=== PATIENT | female | born 1960 | race Hispanic/Latino ===

== ENCOUNTER 2016-11-25 09:16 | Inpatient (IN) | payer MEDICARE ==
[2016-11-25 10:08] LABS: Basophils % (Auto) 0.5 % (0.0-1.8); Eosinophils % (Auto) 1.3 % (0.0-4.3); Hematocrit 30.2 % (30.3-42.9); Hemoglobin 9.9 gm/dl (10.1-14.3); Mean Corpuscular HGB Conc 33 % (30-34); Mean Corpuscular Volume 72 fl (79-97); Platelet Count 467 K/mm3 (140-440); Red Blood Count 4.18 M/mm3 (3.65-5.03); Red Cell Distribution Width 16.6 % (13.2-15.2); White Blood Count 9.6 K/mm3 (4.5-11.0)
[2016-11-25 10:16] LABS: Mean Corpuscular Hemoglobin 24 pg (28-32)
[2016-11-25 10:36] LABS: Alanine Aminotransferase 21 units/L (7-56); Albumin 2.9 g/dL (3.9-5); Albumin/Globulin Ratio 0.9 %; Alkaline Phosphatase 92 units/L (35-129); Anion Gap 16 mmol/L; BUN/Creatinine Ratio 16.66; Bilirubin,Total 0.3 mg/dL (0.1-1.2); Blood Urea Nitrogen 10 mg/dL (7-17); Carbon Dioxide 31 mmol/L (22-30); Chloride 80.1 mmol/L (98-107); Glucose 104 mg/dL (65-100); Lipase 17 units/L (13-60); Sodium 125 mmol/L (137-145); Total Protein 6.3 g/dL (6.3-8.2)
[2016-11-25 10:41] LABS: Bilirubin,Urine NEG (Negative); Blood,Urine NEG (Negative); Ketones,Urine NEG (Negative); Leukocyte Esterase,Urine NEG (Negative); Nitrite,Urine NEG (Negative); Protein,Urine <15 mg/dL mg/dL (Negative); RBC,Urine < 1.0 /HPF (0.0-6.0); Urobilinogen,Urine < 2.0 mg/dL (<2.0); WBC,Urine < 1.0 /HPF (0.0-6.0)
[2016-11-25 10:42] LABS: Potassium 2.3 mmol/L (3.6-5.0)
[2016-11-25] MEDS ORDERED: K-DUR PO ONE (10:46)
[2016-11-25 11:09] LABS: Iron 13 ug/dL (37-170); Total Iron Binding Capacity 213 mcg/dL (250-450)
[2016-11-25] MEDS ORDERED: NACL 0.9% 1000 ML 1,000 ML IV ONE (11:12)
--- NOTE | 2016-11-25 11:50 | XRay Report ---
AP CHEST History: Difficulty in breathing Findings: There are moderate chronic interstitial changes in both lungs. No consolidation, pleural effusion or pneumothorax. Normal heart size. The thoracic is intact. Impression: Chronic interstitial changes. No acute cardiopulmonary process appreciated.
--- NOTE | 2016-11-25 11:58 | Cat Scan Report ---
CT HEAD WITHOUT CONTRAST: HISTORY: Head trauma, syncope. TECHNIQUE: Sequential CT images without contrast. FINDINGS: Images obtained show bilateral prominence of the sulci and ventricles. There are no abnormal intra- or extra-axial blood or fluid collections. There are no focal masses or evidence of mass effect. The jiang white matter differentiation appears within normal limits. Regions of periventricular decreased attenuation are consistent with microangiopathic ischemic disease. The posterior fossa structures including the fourth ventricle, cerebellum, and brainstem appear normal. IMPRESSION: Evidence of atrophy and microangiopathic ischemic disease. No acute intracranial process noted.
[2016-11-25] MEDS ORDERED: ZOFRAN IV PRN (12:04)
[2016-11-25] MEDS ORDERED: MILK OF MAGNESIA PO PRN (12:04)
[2016-11-25] MEDS ORDERED: DULCOLAX PR PRN (12:04)
--- NOTE | 2016-11-25 12:09 | Admit Criteria Form ---
Admission Criteria Documentation: HYPONATREMIA; HYPERNATREMIA; HYPOKALEMIA; HYPERKALEMIA; HYPOCALCEMIA; HYPERCALCEMIA Clinical Indications for Inpatient Care (Place 'X' for any and all applicable criteria): Ongoing inpatient care may be indicated for ANY ONE of the following [G](1)(2)(3 )(5): [X ]I. Hyponatremia with ANY ONE of the following: [ X]a) Sodium less than 130 mEq/L (mmol/L) (new) (6)(22) [ ]b) Sodium less than 135 mEq/L (mmol/L) with ANY ONE of the following: [ ]i) Severe medical etiology requiring inpatient management (eg, heart failure, hypovolemia) [ ]ii) Altered mental status [ ]iii) Seizures [ ]II. Hypernatremia with ANY ONE of the following: [ ]a) Sodium greater than 155 mEq/L (mmol/L) [ ]b) Sodium greater than 150 mEq/L (mmol/L) with ANY ONE of the following: [ ] i) Altered mental status [ ]ii) Seizures [ ]iii) Severe medical etiology (eg, hypovolemia, diabetes insipidus) [ ]iv) Severe weakness [ ]v) Severe medical etiology (eg, hemolysis, infection, drug overdose) [X ]III. Hypokalemia with ANY ONE of the following: [ X]a) Potassium less than 2.5 mEq/L (mmol/L) despite outpatient and emergency treatment [ ]b) Potassium less than 3.0 mEq/L (mmol/L) with ANY ONE of the following: [ ]i) Weakness [ ]ii) Cardiac abnormality (eg, arrhythmia, conduction disturbance) [ ]iii) Cardiac ischemia [ ]iv) Ileus [ ]v) Ongoing medical cause requiring inpatient management. ( e.g., acute renal wasting, SIADH) [ ]vi) Other severe symptoms [ ] IV. Hyperkalemia with ANY ONE of the following: [ ]a) Potassium greater than 6.5 mEq/L (mmol/L) [ ]b) Potassium greater than 5 mEq/L (mmol/L) with ANY ONE of the following: [ ]i) Severe ECG findings [H] [ ]ii) Acute worsening of renal failure (creatinine greater than 2.5 mg/dL (221 micromoles/L) or significant elevation for age and size) [ ] V. Hypocalcemia with ANY ONE of the following: [ ]a) Calcium less than 7 mg/dL (1.75 mmol/L) despite outpatient and emergency treatment(19) [ ]b) Calcium less than 8 mg/dL (2 mmol/L) with significant symptoms or findings; examples include: [ ]i) Cardiac abnormality (eg, arrhythmia or conduction disturbance) [ ]ii) Altered mental status [ ]iii) Seizures [ ]iv) Breathing difficulty [ ]v) Muscle spasms [ ]. Hypercalcemia with ANY ONE of the following: [ ]a) Calcium greater than 14 mg/dL (3.5 mmol/L) [ ]b) Calcium greater than 12 mg/dL (3 mmol/L) with ANY ONE of the following: [ ]i) Significant dehydration or hypovolemia as indicated by ANY ONE of the following(2): [ ]1. Clinically significant dehydration as indicated by ANY ONE of the following: [ ]A. Acute loss of weight from baseline (5% of body weight in adults, 9% in pediatric patients) [ ]B. Hemodynamic instability [ ]C. Acute renal failure [ ]D. Serum sodium greater than 150 mEq/L (mmol/L) [ ]2) Dehydration that is persistent indicated by ALL of the following: [ ]A. Oral rehydration therapy not tolerated or insufficient to adequately correct dehydration [ ]B. Appropriate intravenous treatment (eg, fluids ) does not readily correct dehydration ie, after 12 to 24 hours of treatment) [ ]ii) Significant symptoms or findings; examples include: [ ]1) Altered mental status [ ]2) Cardiac abnormality (eg, arrhythmia, conduction disturbance) [ ]3) Cardiac abnormality (eg, arrhythmia, conduction disturbance) The original [facility] content created by [employer] has been revised. The portions of the content which have been revised are identified through the use of italic text or in bold, and [facility] has neither reviewed nor approved the modified material. All other unmodified content is copyright [facility] Please see references footnoted in the original [facility] edition 2016 Admission Criteria Met: Yes
--- NOTE | 2016-11-25 12:49 | Emergency Department Report ---
ED General Adult HPI - General Chief complaint: Dizziness Stated complaint: LOW BP Time Seen by Provider: 11/25/16 10:33 Source: patient, EMS Mode of arrival: Stretcher Limitations: No Limitations - History of Present Illness Initial comments: The patient presents to the emergency department with similar complaints compared with her previous admission in September. She complains of dizziness and generalized weakness but not vertigo. Yesterday she states that she stood up but fell backwards hitting the left occiput of her head on a coffee table. She distinctly remembers the incident and denies any loss of consciousness. She denies any neck pain whatsoever. She has not been nauseated or complaining of headache. She states that she does have a bump on the back of her head. She also denies nausea vomiting or diarrhea over the past several days. She states that she has never taken an overdose of medication. She specifically denies taking a diuretic. Apparently she was here in September found to be hyponatremic. I don't think the cause was ever specifically determined. -: days(s) Location: head Radiation: non-radiation Quality: dull (mild soreness) Consistency: intermittent Improves with: none Associated Symptoms: denies other symptoms Treatments Prior to Arrival: none - Related Data Home Medications Medication Instructions Recorded Confirmed Last Taken Ascorbic Acid [Vitamin C] 500 mg PO QDAY 11/24/15 10/14/16 11/23/15 09:00 Dicyclomine [Bentyl] 10 mg PO QID 11/24/15 10/14/16 11/23/15 22:00 Iron 65 mg PO BID 11/24/15 10/14/16 11/23/15 22:00 Previous Rx's Medication Instructions Recorded Last Taken Type Potassium Chloride 20 meq PO QDAY #30 packet 12/09/14 Unknown Rx Diltiazem [Cardizem] 60 mg PO Q6HR #120 tablet 03/04/15 Unknown Rx Metoclopramide [Reglan TAB] 10 mg PO Q6H PRN #30 tablet 03/04/15 Unknown Rx Sucralfate [Carafate] 1 gm PO ACHS #120 tablet 03/04/15 Unknown Rx Ondansetron [Zofran ODT TAB] 4 mg PO Q8HR PRN #20 tab.rapdis 11/24/15 Unknown Rx Pantoprazole [Protonix TAB] 40 mg PO BID 14 Days 09/16/16 Unknown Rx Sucralfate [Carafate] 1 gm PO Q6HR 14 Days 09/16/16 Unknown Rx Acetaminophen/Codeine 1 tab PO Q6H PRN #10 tab 09/17/16 Unknown Rx [Acetaminophen-Codeine #3 TAB] Mirtazapine [Remeron] 15 mg PO QHS #30 tablet 10/17/16 Unknown Rx Ziprasidone HCl [Geodon] 80 mg PO QHS #30 10/17/16 11/23/15 22:00 Rx Allergies Allergy/AdvReac Type Severity Reaction Status Date / Time aspirin AdvReac Bleeding Verified 10/14/16 03:11 ibuprofen AdvReac Bleeding Verified 10/14/16 03:11 ED Review of Systems ROS: Stated complaint: LOW BP Other details as noted in HPI Constitutional: weakness. denies: chills, fever Eyes: denies: eye pain, eye discharge, vision change ENT: denies: ear pain, throat pain Respiratory: denies: cough, shortness of breath, wheezing Cardiovascular: denies: chest pain, palpitations Endocrine: no symptoms reported Gastrointestinal: denies: abdominal pain, nausea, diarrhea Genitourinary: denies: urgency, dysuria, discharge Musculoskeletal: denies: back pain, joint swelling, arthralgia Skin: denies: rash, lesions Neurological: denies: headache, weakness, paresthesias Psychiatric: denies: anxiety, depression Hematological/Lymphatic: denies: easy bleeding, easy bruising ED Past Medical Hx - Past Medical History Hx Hypertension: Yes Hx Heart Attack/AMI: No Hx Congestive Heart Failure: No Hx Diabetes: No Hx Deep Vein Thrombosis: No Hx Pulmonary Embolism: No Hx Liver Disease: No Hx Renal Disease: No Hx Sickle Cell Disease: No Hx Seizures: No Hx Kidney Stones: No Hx Psychiatric Treatment: Yes (schizoaffective) Hx Asthma: No Hx COPD: Yes Hx Tuberculosis: No Hx HIV: No Additional medical history: hiatal hernia. holes in esophagus. gi bleed-- bleeding ulcers. schizoaffective disorder - Surgical History Hx Coronary Stent: No Hx Open Heart Surgery: No Hx Pacemaker: No Hx Internal Defibrillator: No Hx Cholecystectomy: No Hx Appendectomy: Yes Hx Breast Surgery: No Additional Surgical History: esophagus repair. left foot surgery. tonsilectomy. x 2. hysterectomy. 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 - Social History Smoking Status: Former Smoker Substance Use Type: None - Medications Home Medications: Home Medications Medication Instructions Recorded Confirmed Last Taken Type Potassium Chloride 20 meq PO QDAY #30 packet 12/09/14 11/24/15 Unknown Rx Diltiazem [Cardizem] 60 mg PO Q6HR #120 tablet 03/04/15 11/24/15 Unknown Rx Metoclopramide [Reglan TAB] 10 mg PO Q6H PRN #30 tablet 03/04/15 11/24/15 Unknown Rx Sucralfate [Carafate] 1 gm PO ACHS #120 tablet 03/04/15 11/24/15 Unknown Rx Ascorbic Acid [Vitamin C] 500 mg PO QDAY 11/24/15 10/14/16 11/23/15 09:00 History Dicyclomine [Bentyl] 10 mg PO QID 11/24/15 10/14/16 11/23/15 22:00 History Iron 65 mg PO BID 11/24/15 10/14/16 11/23/15 22:00 History Ondansetron [Zofran ODT TAB] 4 mg PO Q8HR PRN #20 tab.rapdis 11/24/15 10/14/16 Unknown Rx Pantoprazole [Protonix TAB] 40 mg PO BID 14 Days 09/16/16 10/14/16 Unknown Rx Sucralfate [Carafate] 1 gm PO Q6HR 14 Days 09/16/16 10/14/16 Unknown Rx Acetaminophen/Codeine 1 tab PO Q6H PRN #10 tab 09/17/16 10/14/16 Unknown Rx [Acetaminophen-Codeine #3 TAB] Mirtazapine [Remeron] 15 mg PO QHS #30 tablet 10/17/16 Unknown Rx Ziprasidone HCl [Geodon] 80 mg PO QHS #30 10/17/16 10/14/16 11/23/15 22:00 Rx ED Physical Exam - General Limitations: No Limitations General appearance: alert, in no apparent distress - Head Head exam: Present: normocephalic, other (small cephalhematoma left occiput) - Eye Eye exam: Present: normal appearance, PERRL, EOMI, scleral icterus - ENT ENT exam: Present: normal exam, mucous membranes moist - Neck Neck exam: Present: normal inspection. Absent: tenderness, meningismus - Respiratory Respiratory exam: Present: normal lung sounds bilaterally. Absent: respiratory distress - Cardiovascular Cardiovascular Exam: Present: regular rate, normal rhythm. Absent: systolic murmur, diastolic murmur, rubs, gallop - GI/Abdominal GI/Abdominal exam: Present: soft, normal bowel sounds. Absent: distended, tenderness, guarding, rebound, rigid - Extremities Exam Extremities exam: Present: normal inspection. Absent: tenderness, calf tenderness - Back Exam Back exam: Present: normal inspection. Absent: CVA tenderness (R), CVA tenderness (L), muscle spasm, paraspinal tenderness, vertebral tenderness - Neurological Exam Neurological exam: Present: alert, oriented X3, CN II-XII intact. Absent: motor sensory deficit - Psychiatric Psychiatric exam: Present: normal affect, normal mood - Skin Skin exam: Present: warm, dry, intact, normal color. Absent: rash ED Course Vital Signs 11/25/16 11/25/16 09:43 09:47 Temperature 97.5 F L Pulse Rate 64 Respiratory 15 Rate Blood Pressure 100/59 O2 Sat by Pulse 97 100 Oximetry ED Medical Decision Making - Lab Data Result diagrams: 11/25/16 09:57 11/25/16 12:37 Laboratory Results - last 24 hr 11/25/16 11/25/16 11/25/16 09:57 09:57 09:57 WBC 9.6 RBC 4.18 Hgb 9.9 L Hct 30.2 L MCV 72 L MCH 24 L MCHC 33 RDW 16.6 H Plt Count 467 H Lymph % (Auto) 9.5 L Swift % (Auto) 8.1 H Eos % (Auto) 1.3 Baso % (Auto) 0.5 Lymph # 0.9 L Swift # 0.8 Eos # 0.1 Baso # 0.1 Seg Neutrophils % 80.6 H Seg Neutrophils # 7.8 H Sodium 125 L Potassium 2.3 L* Chloride 80.1 L Carbon Dioxide 31 H Anion Gap 16 BUN 10 Creatinine 0.6 L Estimated GFR > 60 BUN/Creatinine Ratio 16.66 Glucose 104 H Osmolality Calcium 8.0 L Magnesium Iron 13 L TIBC 213 L Total Bilirubin 0.3 AST 60 H ALT 21 Alkaline Phosphatase 92 Total Protein 6.3 Albumin 2.9 L Albumin/Globulin Ratio 0.9 Lipase 17 TSH Free T4 Urine Color Urine Turbidity Urine pH Ur Specific Lena Urine Protein Urine Glucose (UA) Urine Ketones Urine Blood Urine Nitrite Urine Bilirubin Urine Urobilinogen Ur Leukocyte Esterase Urine WBC (Auto) Urine RBC (Auto) Acetaminophen 11/25/16 11/25/16 11/25/16 09:57 10:27 11:09 WBC RBC Hgb Hct MCV MCH MCHC RDW Plt Count Lymph % (Auto) Swift % (Auto) Eos % (Auto) Baso % (Auto) Lymph # Swift # Eos # Baso # Seg Neutrophils % Seg Neutrophils # Sodium Potassium Chloride Carbon Dioxide Anion Gap BUN Creatinine Estimated GFR BUN/Creatinine Ratio Glucose Osmolality Calcium Magnesium 1.8 Iron TIBC Total Bilirubin AST ALT Alkaline Phosphatase Total Protein Albumin Albumin/Globulin Ratio Lipase TSH Free T4 Urine Color Colorless Urine Turbidity Clear Urine pH 7.0 Ur Specific Lena 1.001 L Urine Protein <15 mg/dl Urine Glucose (UA) Neg Urine Ketones Neg Urine Blood Neg Urine Nitrite Neg Urine Bilirubin Neg Urine Urobilinogen < 2.0 Ur Leukocyte Esterase Neg Urine WBC (Auto) < 1.0 Urine RBC (Auto) < 1.0 Acetaminophen < 15.0 11/25/16 11/25/16 11/25/16 11:09 12:37 12:37 WBC RBC Hgb Hct MCV MCH MCHC RDW Plt Count Lymph % (Auto) Swift % (Auto) Eos % (Auto) Baso % (Auto) Lymph # Swift # Eos # Baso # Seg Neutrophils % Seg Neutrophils # Sodium 125 L Potassium Chloride Carbon Dioxide Anion Gap BUN Creatinine Estimated GFR BUN/Creatinine Ratio Glucose Osmolality 263 Calcium Magnesium Iron TIBC Total Bilirubin AST ALT Alkaline Phosphatase Total Protein Albumin Albumin/Globulin Ratio Lipase TSH 0.610 Free T4 1.53 H Urine Color Urine Turbidity Urine pH Ur Specific Lena Urine Protein Urine Glucose (UA) Urine Ketones Urine Blood Urine Nitrite Urine Bilirubin Urine Urobilinogen Ur Leukocyte Esterase Urine WBC (Auto) Urine RBC (Auto) Acetaminophen - EKG Data -: EKG Interpreted by Ga EKG shows normal: sinus rhythm, axis, intervals - EKG Data Interpretation: other (the EKG is characteristic of the changes of hypokalemia. There is QT prolongation. There are U waves. There are flattened P waves.) Critical care attestation.: If time is entered above; I have spent that time in minutes in the direct care of this critically ill patient, excluding procedure time. ED Disposition Clinical Impression: Hypokalemia with normal acid-base balance, Hyponatremia, Abnormal transaminases , Elevated serum free T4 level, Hypochromic microcytic anemia, Psychiatric disorder Iron deficiency anemia Qualifiers: Iron deficiency anemia type: unspecified iron deficiency Qualified Code(s): D50.9 - Iron deficiency anemia, unspecified Disposition: OP ADMITTED IP TO THIS HOSP Is pt being admited?: Yes Does the pt Need Aspirin: No Condition: Stable Time of Disposition: 14:04
--- NOTE | 2016-11-25 12:59 | History and Physical Report ---
History of Present Illness Date of examination: 11/25/16 Date of admission: 11/25/16 12:06 Chief complaint: Abdominal pain History of present illness: Patient is a 56-year-old female with past medical history of schizoaffective disorder, iron deficiency anemia, hypertension, peptic ulcer disease who presents to the ER with complaints of abdominal pain and generalized weakness. She also reports a syncopal episode which was unwitnessed yesterday with notation that she hit the back of her head. Abdominal patient rates 5. Intensive tinnitus, stones. She started 3 days ago but when asked in depth that she has had multiple admissions for the same she states that it comes and goes and has never really gone away. She has had multiple stents in the past was negative. She denies any radiation. She states that she does have blood in her stool is that this is chronic. She denies any melena or kobe bleeding. In the ER today she reports dizziness and generalized weakness but no vertigo. She stated that she stood up and fell backwards hitting her head yesterday. But again although she causes syncope she says she did not lose any consciousness. She denies any neck pain denies any nausea or vomiting or diarrhea. She denies any use of diuretics. She denies any fever. The ER she was noted to have a significantly depressed sodium level of potassium. ROS Constitutional: No fever, fatigue or weight loss. Skin: No rash. Eyes: No recent vision problems or eye pain. ENT: No congestion, ear pain, or sore throat. Endocrine: No thyroid problems. Cardiovascular: No chest pain. Respiratory: No cough, shortness of breath, congestion, or wheezing. Gastrointestinal: abdominal pain, but no nausea, vomiting, or diarrhea. Genitourinary: No dysuria. Musculoskeletal: No joint swelling. Neurologic: No seizures. Hematologic: No unusual bruising or bleeding. Psychiatric: No psychiatric problems, hallucinations or depression. All other systems reviewed and otherwise negative. 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, esophageal repair, left foot surgery, tonsillectomy,) Social history: no significant social history, full code Family history: CAD, diabetes, hypertension Medications and Allergies Allergies Allergy/AdvReac Type Severity Reaction Status Date / Time aspirin AdvReac Bleeding Verified 10/14/16 03:11 ibuprofen AdvReac Bleeding Verified 10/14/16 03:11 Home Medications Medication Instructions Recorded Confirmed Last Taken Type Potassium Chloride 20 meq PO QDAY #30 packet 12/09/14 11/24/15 Unknown Rx Diltiazem [Cardizem] 60 mg PO Q6HR #120 tablet 03/04/15 11/24/15 Unknown Rx Metoclopramide [Reglan TAB] 10 mg PO Q6H PRN #30 tablet 03/04/15 11/24/15 Unknown Rx Sucralfate [Carafate] 1 gm PO ACHS #120 tablet 03/04/15 11/24/15 Unknown Rx Ascorbic Acid [Vitamin C] 500 mg PO QDAY 11/24/15 10/14/16 11/23/15 09:00 History Dicyclomine [Bentyl] 10 mg PO QID 11/24/15 10/14/16 11/23/15 22:00 History Iron 65 mg PO BID 11/24/15 10/14/16 11/23/15 22:00 History Ondansetron [Zofran ODT TAB] 4 mg PO Q8HR PRN #20 tab.rapdis 11/24/15 10/14/16 Unknown Rx Pantoprazole [Protonix TAB] 40 mg PO BID 14 Days 09/16/16 10/14/16 Unknown Rx Sucralfate [Carafate] 1 gm PO Q6HR 14 Days 09/16/16 10/14/16 Unknown Rx Acetaminophen/Codeine 1 tab PO Q6H PRN #10 tab 09/17/16 10/14/16 Unknown Rx [Acetaminophen-Codeine #3 TAB] Mirtazapine [Remeron] 15 mg PO QHS #30 tablet 10/17/16 Unknown Rx Ziprasidone HCl [Geodon] 80 mg PO QHS #30 10/17/16 10/14/16 11/23/15 22:00 Rx Active Meds: Active Medications Acetaminophen (Tylenol) 650 mg PO Q4H PRN PRN Reason: Pain MILD(1-3)/Fever >100.5/HWANG Bisacodyl (Dulcolax) 10 mg DC QDAY PRN PRN Reason: Constipation unrelieved by MOM Potassium Chloride (Kcl 10meq/100ml) 100 mls @ 100 mls/hr IV Q1H ANTONELLA Stop: 11/25/16 14:59 Sodium Chloride (Nacl 0.9% 1000 Ml) 1,000 mls @ 250 mls/hr IV ONCE ONE Stop: 11/25/16 15:11 Sodium Chloride (Nacl 0.9% 1000 Ml) 1,000 mls @ 125 mls/hr IV DIRECT ANTONELLA Magnesium Hydroxide (Milk Of Magnesia) 30 ml PO Q4H PRN PRN Reason: Constipation Ondansetron HCl (Zofran) 4 mg IV Q8H PRN PRN Reason: N/V unrelieved by Reglan Exam - Physical Exam Narrative exam: VITAL SIGNS: Reviewed. GENERAL: The patient appeared cachectic. Vital signs as documented. HEAD: No signs of head trauma. EYES: Pupils are equal. Extraocular motions intact. EARS: Hearing grossly intact. MOUTH: Oropharynx is normal. NECK: No adenopathy, no JVD. CHEST: Chest with clear breath sounds bilaterally. No wheezes, rales, or rhonchi. CARDIAC: Regular rate and rhythm. S1 and S2, without murmurs, gallops, or rubs. VASCULAR: No Edema. Peripheral pulses normal and equal in all extremities. ABDOMEN: Soft, tenderness left lower quadrant. No sign of distention. No rebound or guarding, and no masses palpated. Bowel Sounds normal. MUSCULOSKELETAL: Good range of motion of all major joints. Extremities without clubbing, cyanosis or edema. NEUROLOGIC EXAM: Alert and oriented x 3. No focal sensory or strength deficits. Speech normal. Follows commands. PSYCHIATRIC: Mood normal. SKIN: No rash or lesions. - Constitutional Vitals: Temp Pulse Resp BP Pulse Ox 97.5 F L 64 100/59 97 11/25/16 09:43 11/25/16 09:43 11/25/16 09:43 11/25/16 09:43 Results - Labs CBC & Chem 7: 11/25/16 09:57 11/25/16 09:57 Labs: Laboratory Last Values WBC 9.6 K/mm3 (4.5-11.0) 11/25/16 09:57 RBC 4.18 M/mm3 (3.65-5.03) 11/25/16 09:57 Hgb 9.9 gm/dl (10.1-14.3) L 11/25/16 09:57 Hct 30.2 % (30.3-42.9) L 11/25/16 09:57 MCV 72 fl (79-97) L 11/25/16 09:57 MCH 24 pg (28-32) L 11/25/16 09:57 MCHC 33 % (30-34) 11/25/16 09:57 RDW 16.6 % (13.2-15.2) H 11/25/16 09:57 Plt Count 467 K/mm3 (140-440) H 11/25/16 09:57 Lymph % (Auto) 9.5 % (13.4-35.0) L 11/25/16 09:57 [place] % (Auto) 8.1 % (0.0-7.3) H 11/25/16 09:57 Eos % (Auto) 1.3 % (0.0-4.3) 11/25/16 09:57 Baso % (Auto) 0.5 % (0.0-1.8) 11/25/16 09:57 Lymph # 0.9 K/mm3 (1.2-5.4) L 11/25/16 09:57 [place] # 0.8 K/mm3 (0.0-0.8) 11/25/16 09:57 Eos # 0.1 K/mm3 (0.0-0.4) 11/25/16 09:57 Baso # 0.1 K/mm3 (0.0-0.1) 11/25/16 09:57 Seg Neutrophils % 80.6 % (40.0-70.0) H 11/25/16 09:57 Seg Neutrophils # 7.8 K/mm3 (1.8-7.7) H 11/25/16 09:57 Sodium 125 mmol/L (137-145) L 11/25/16 09:57 Potassium 2.3 mmol/L (3.6-5.0) L* 11/25/16 09:57 Chloride 80.1 mmol/L (98-107) L 11/25/16 09:57 Carbon Dioxide 31 mmol/L (22-30) H 11/25/16 09:57 Anion Gap 16 mmol/L 11/25/16 09:57 BUN 10 mg/dL (7-17) 11/25/16 09:57 Creatinine 0.6 mg/dL (0.7-1.2) L 11/25/16 09:57 Estimated GFR > 60 ml/min 11/25/16 09:57 BUN/Creatinine Ratio 16.66 % 11/25/16 09:57 Glucose 104 mg/dL (65-100) H 11/25/16 09:57 Calcium 8.0 mg/dL (8.4-10.2) L 11/25/16 09:57 Magnesium 1.8 mg/dL (1.7-2.3) 11/25/16 09:57 Iron 13 ug/dL (37-170) L 11/25/16 09:57 TIBC 213 mcg/dL (250-450) L 11/25/16 09:57 Total Bilirubin 0.3 mg/dL (0.1-1.2) 11/25/16 09:57 AST 60 units/L (5-40) H 11/25/16 09:57 ALT 21 units/L (7-56) 11/25/16 09:57 Alkaline Phosphatase 92 units/L (35-129) 11/25/16 09:57 Total Protein 6.3 g/dL (6.3-8.2) 11/25/16 09:57 Albumin 2.9 g/dL (3.9-5) L 11/25/16 09:57 Albumin/Globulin Ratio 0.9 % 11/25/16 09:57 Lipase 17 units/L (13-60) 11/25/16 09:57 TSH 0.610 mlU/mL (0.270-4.200) 11/25/16 11:09 Free T4 1.53 ng/dL (0.76-1.46) H 11/25/16 11:09 Urine Color Colorless (Yellow) 11/25/16 10:27 Urine Turbidity Clear (Clear) 11/25/16 10:27 Urine pH 7.0 (5.0-7.0) 11/25/16 10:27 Ur Specific [place] 1.001 (1.003-1.030) L 11/25/16 10:27 Urine Protein <15 mg/dl mg/dL (Negative) 11/25/16 10:27 Urine Glucose (UA) Neg mg/dL (Negative) 11/25/16 10:27 Urine Ketones Neg mg/dL (Negative) 11/25/16 10:27 Urine Blood Neg (Negative) 11/25/16 10:27 Urine Nitrite Neg (Negative) 11/25/16 10:27 Urine Bilirubin Neg (Negative) 11/25/16 10:27 Urine Urobilinogen < 2.0 mg/dL (<2.0) 11/25/16 10:27 Ur Leukocyte Esterase Neg (Negative) 11/25/16 10:27 Urine WBC (Auto) < 1.0 /HPF (0.0-6.0) 11/25/16 10:27 Urine RBC (Auto) < 1.0 /HPF (0.0-6.0) 11/25/16 10:27 Acetaminophen < 15.0 ug/mL (10.0-30.0) 11/25/16 11:09 - Imaging and Cardiology EKG: image reviewed (dermal sinus rhythm on my review) Chest x-ray: image reviewed (no acute pathology noted on my review) CT scan - abdomen: pending (ordered) CT Scan - head: pending (ordered) CT scan - pelvis: pending (ordered) Assessment and Plan Assessment and plan: Patient is a 56-year-old female with past medical history of schizoaffective disorder, iron deficiency anemia, hypertension, peptic ulcer disease who presents to the ER with complaints of abdominal pain and generalized weakness. She also reports a syncopal episode which was unwitnessed yesterday with notation that she hit the back of her head. Abdominal patient rates 5. Intensive tinnitus, stones. She started 3 days ago but when asked in depth that she has had multiple admissions for the same she states that it comes and goes and has never really gone away. She has had multiple stents in the past was negative. She denies any radiation. She states that she does have blood in her stool is that this is chronic. She denies any melena or kobe bleeding. In the ER today she reports dizziness and generalized weakness but no vertigo. She stated that she stood up and fell backwards hitting her head yesterday. But again although she causes syncope she says she did not lose any consciousness. She denies any neck pain denies any nausea or vomiting or diarrhea. She denies any use of diuretics. She denies any fever. The ER she was noted to have a significantly depressed sodium level of potassium. 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 * monitor sodium level, urine electrolytes, urine sodium, urine osmolalytes * Hypokalemia * replaced * Schizoaffective disorder * restart home meds * Benign hypertension * restart home meds * Severe protein calorie malnutrition * Nutrition consult * Iron deficiency anemia * Monitor. * Mildly elevated AST * DVT/GI prophylaxis Advance Directives: Yes Plan of care discussed with patient/family: Yes
[2016-11-25] MEDS ORDERED: NACL ONE ×2 (13:07→16:15)
[2016-11-25] MEDS: KCL 10MEQ/100ML 100 ML IV SCH ×2 (14:04→17:20)
[2016-11-25] MEDS: TYLENOL PO PRN ×2 (16:30→23:30)
--- NOTE | 2016-11-25 17:46 | Cat Scan Report ---
FINAL REPORT PROCEDURE: CT abdomen and pelvis without and with contrast. TECHNIQUE: Computerized axial tomography of the abdomen and pelvis was performed without contrast followed by computerized axial tomography of the abdomen and pelvis after the IV injection of iodinated nonionic contrast. HISTORY: Abdominal pain. COMPARISON: CT abdomen and pelvis 11/24/2015. FINDINGS: There are coarsened interstitial markings in the left lower lobe and in the periphery of the right lower lobe. This may represent parenchymal fibrosis. There are no pleural effusions. The heart size is normal. The liver, spleen and pancreas appear normal. The gallbladder is present. There is a low-attenuation ovoid mass in the right adrenal gland. This measures 1.9 centimeters x 1.6 centimeters in cross-section. There is also a low-density mass in the left adrenal gland. This measures approximately 1.6 centimeters x 1.1 centimeters in cross-section. These may both represent adrenal adenomas. There is a small cyst in the right kidney and a large cyst in the left kidney. The left renal cyst measures 4.2 centimeters x 3.7 centimeters in cross-section. The abdominal aorta has a normal caliber. There is no retroperitoneal adenopathy. There is a moderately large hiatal hernia. The appendix is not identified. There are no signs of an inflammatory process near the cecum. The bladder is unremarkable. The uterus has been removed. The regional skeleton appears intact. IMPRESSION: Previous hysterectomy. Bilateral renal cysts. Possible fibrosis in both lower lobes. Bilateral adrenal gland masses which probably represent adenomas. Moderately large hiatal hernia.
[2016-11-26] MEDS ORDERED: ALUM-MAG HYDROX-SIMETH 200-200-20MG/5ML PO ONE (03:42)
[2016-11-26 05:39] LABS: Basophils % (Auto) 0.8 % (0.0-1.8); Eosinophils % (Auto) 1.1 % (0.0-4.3); Hematocrit 27.9 % (30.3-42.9); Hemoglobin 9.2 gm/dl (10.1-14.3); Mean Corpuscular HGB Conc 33 % (30-34); Mean Corpuscular Hemoglobin 24 pg (28-32); Mean Corpuscular Volume 73 fl (79-97); Platelet Count 513 K/mm3 (140-440); Red Blood Count 3.82 M/mm3 (3.65-5.03); Red Cell Distribution Width 16.7 % (13.2-15.2); White Blood Count 7.2 K/mm3 (4.5-11.0)
[2016-11-26 05:53] LABS: Alanine Aminotransferase 18 units/L (7-56); Albumin 2.6 g/dL (3.9-5); Albumin/Globulin Ratio 0.8 %; Alkaline Phosphatase 83 units/L (35-129); Bilirubin,Total < 0.2 mg/dL (0.1-1.2); Blood Urea Nitrogen 6 mg/dL (7-17); Calcium 8.1 mg/dL (8.4-10.2); Carbon Dioxide 31 mmol/L (22-30); Chloride 97.4 mmol/L (98-107); Glucose 87 mg/dL (65-100); Sodium 140 mmol/L (137-145); Total Protein 5.7 g/dL (6.3-8.2)
[2016-11-26 06:00] LABS: Anion Gap 14 mmol/L; Potassium 2.1 mmol/L (3.6-5.0)
[2016-11-26 06:16] LABS: Sodium, Urine 21 mEq/L
[2016-11-26] MEDS: KCL 10MEQ/100ML 100 ML IV SCH ×4 (09:07→13:36)
[2016-11-26] MEDS: K-DUR PO SCH ×2 (09:17→12:30)
[2016-11-26] MEDS: PERCOCET 5/325 PO PRN ×3 (09:17→21:39)
[2016-11-26] MEDS: NACL 0.9% 1000 ML 1,000 ML IV SCH ×3 (11:36→21:40)
--- NOTE | 2016-11-26 14:32 | Echocardiography Report ---
Transthoracic Echocardiogram Indication: SYNCOPE BP: 100/59 HR: 65 Findings Procedure Info: The study quality is good. Left Ventricle: The left ventricular chamber size is normal. Mild to moderate concentric left ventricular hypertrophy is observed. Global left ventricular systolic function is normal. The estimated ejection fraction is 55-60%. Left Atrium: The left atrial chamber size is normal. Right Ventricle: The right ventricular cavity size is normal. The right ventricular global systolic function is normal. Right Atrium: The right atrial cavity size is normal. Aortic Valve: The aortic valve is trileaflet. The aortic valve leaflets are mildly thickened. There is trace of aortic regurgitation. There is no evidence of aortic stenosis. Mitral Valve: The mitral valve leaflets appear myxomatous. The mitral valve leaflets are mildly thickened. There is mild mitral regurgitation. There is no evidence of mitral stenosis. Tricuspid Valve: The tricuspid valve leaflets are normal. There is mild tricuspid regurgitation. There is evidence of mild pulmonary hypertension. Pulmonic Valve: The pulmonic valve is not well visualized. There is no evidence of pulmonic regurgitation. There is no pulmonic stenosis. Pericardium: There is no pericardial effusion. No pleural effusion is present. Aorta: There is plaque visualized in the transverse aorta. There is evidence of grade 3 (atheroma Less Than = 5mm) atheroma in the transverse aorta. There is plaque visualized in the descending aorta. There is evidence of grade 3 (atheroma Less Than = 5mm) atheroma in the descending aorta. Pulmonary Artery: The main pulmonary artery is not well visualized. Venous: The inferior vena cava appears abnormal. The inferior vena cava is dilated. There is less than 50% respiratory change in the inferior vena cava dimension. Measurements Chambers MM Name Value Normal Range IVSd (MM) 0.73 cm (0.6 - 1.1) LVPWd (MM) 0.76 cm (0.6 - 1.1) IVS:LVPW ratio 0.96 ratio - LVIDd (MM) 4.43 cm (3.7 - 5.6) LVIDs (MM) 2.28 cm (2 - 2.8) LV FS (Teichholz) (MM) 48.5 % - LV FS (cube) (MM) 48.5 % - EF Teichholz (MM) 80.1 % - Ao root diameter (MM) 3.5 cm (2 - 3.7) LA dimension (AP) MM 2.9 cm (1.9 - 4) LA:Ao ratio (MM) 0.83 ratio - AV cusp separation (MM) 2 cm (1.5 - 2.6) Chambers 2D Name Value Normal Range IVSd (2D) 1.05 cm (0.6 - 1.1) LVPWd 1.02 cm - LVPWd (2D) 1.02 cm (0.6 - 1.1) IVS:LVPW ratio (2D) 1.03 ratio - LVIDd 3.8 cm - LVIDs 1.9 cm - LVIDd (2D) 3.81 cm (3.7 - 5.6) LVIDs (2D) 1.93 cm (2 - 3.8) LV FS (Teichholz) (2D) 49.3 % - LV FS (cube) (2D) 49.3 % - LV EF (2D) 81 % - EF Teichholz (2D) 81.4 % - LA dimension 3 cm - Ao root diameter (2D) 2.8 cm (2 - 3.7) LA dimension (AP) 2D 3 cm (1.9 - 4) LA:Ao ratio (2D) 1.07 ratio - Volumes/Mass Name Value Normal Range LA ESV SP 4CH (MOD) 29 ml - LV EDV SP 4CH (MOD) 53 ml - LV ESV SP 4CH (MOD) 21 ml - EF SP 4CH (MOD) 60 % - Diastolic/Systolic Function Name Value Normal Range MV E-wave Vmax 0.7 m/sec - MV deceleration time 317 msec - MV A-wave Vmax 0.73 m/sec - MV E:A ratio 1 ratio - LV septal e' Vmax 0.06 m/sec - LV lateral e' Vmax 0.07 m/sec - LV E:e' septal ratio 11.4 ratio - LV E:e' lateral ratio 9.7 ratio - Aortic Valve Name Value Normal Range AV Vmax 1.17 m/sec - AV peak gradient 5 mmHg - LVOT diameter 1.9 cm - LVOT Vmax 1.02 m/sec - LVOT peak gradient 4 mmHg - WAYLON (continuity Vmax) 2.48 cm2 - Tricuspid Valve Name Value Normal Range TR Vmax 2.92 m/sec - TR peak gradient 34 mmHg - RAP 8 mmHg - RVSP 39 mmHg - Pulmonic Valve/Qp:Qs Name Value Normal Range PV Vmax 0.7 m/sec - PV peak gradient 2 mmHg - PV acceleration time 60 msec -
--- NOTE | 2016-11-26 19:06 | Progress Note ---
Assessment and Plan Assessment and plan: --Hyponatremia Continue replacement therapy, significant improvement in sodium levels closely monitor --Severe hypokalemia; replenish per protocol and monitor levels Placed on telemetry and EKG, check magnesium levels --Schizoaffective disorder; continue current psych medications Psych evaluation if needed --History of hypertension moderate control Continue current antihypertensives and when necessary medications --Severe protein calorie malnutrition Nutrition supplements and dietitian consultation for assistance with management ---Deficiency anemia Iron supplements closely monitor H&H and transfuse as needed --DVT prophylaxis with Lovenox --Full CODE STATUS The closely monitor the patient had just the management as needed plan of care discussed with the patient as well as the nurse I also discussed with the case management History Interval history: Patient seen and evaluated medical records reviewed No new events reported by the nursing staff Patient has severe hypo-kalemia being replaced per protocol Denies any chest pain shortness of breath Vital signs reviewed Hospitalist Physical - Constitutional Vitals: Temp Pulse Resp BP Pulse Ox 98.2 F 70 20 119/60 98 11/26/16 16:30 11/26/16 16:30 11/26/16 16:30 11/26/16 16:30 11/26/16 16:30 General appearance: Present: no acute distress, cachectic, disheveled - EENT Eyes: Present: PERRL, EOM intact - Neck Neck: Present: supple, normal ROM - Respiratory Respiratory effort: normal Respiratory: bilateral: diminished, rales, negative: rhonchi, wheezing - Cardiovascular Rhythm: regular Heart Sounds: Present: S1 & S2 - Extremities Extremities: no ischemia, pulses intact, pulses symmetrical Peripheral Pulses: within normal limits - Abdominal General gastrointestinal: soft, non-tender, non-distended, normal bowel sounds - Integumentary Integumentary: Present: clear, warm - Psychiatric Psychiatric: appropriate mood/affect, cooperative - Neurologic Neurologic: CNII-XII intact, moves all extremities Results - Labs CBC & Chem 7: 11/26/16 04:49 11/26/16 04:49 Labs: Laboratory Last Values WBC 7.2 K/mm3 (4.5-11.0) 11/26/16 04:49 RBC 3.82 M/mm3 (3.65-5.03) 11/26/16 04:49 Hgb 9.2 gm/dl (10.1-14.3) L 11/26/16 04:49 Hct 27.9 % (30.3-42.9) L 11/26/16 04:49 MCV 73 fl (79-97) L 11/26/16 04:49 MCH 24 pg (28-32) L 11/26/16 04:49 MCHC 33 % (30-34) 11/26/16 04:49 RDW 16.7 % (13.2-15.2) H 11/26/16 04:49 Plt Count 513 K/mm3 (140-440) H 11/26/16 04:49 Lymph % (Auto) 12.5 % (13.4-35.0) L 11/26/16 04:49 [place] % (Auto) 9.4 % (0.0-7.3) H 11/26/16 04:49 Eos % (Auto) 1.1 % (0.0-4.3) 11/26/16 04:49 Baso % (Auto) 0.8 % (0.0-1.8) 11/26/16 04:49 Lymph # 0.9 K/mm3 (1.2-5.4) L 11/26/16 04:49 [place] # 0.7 K/mm3 (0.0-0.8) 11/26/16 04:49 Eos # 0.1 K/mm3 (0.0-0.4) 11/26/16 04:49 Baso # 0.1 K/mm3 (0.0-0.1) 11/26/16 04:49 Seg Neutrophils % 76.2 % (40.0-70.0) H 11/26/16 04:49 Seg Neutrophils # 5.5 K/mm3 (1.8-7.7) 11/26/16 04:49 Sodium 140 mmol/L (137-145) D 11/26/16 04:49 Potassium 2.1 mmol/L (3.6-5.0) L* 11/26/16 04:49 Chloride 97.4 mmol/L (98-107) L 11/26/16 04:49 Carbon Dioxide 31 mmol/L (22-30) H 11/26/16 04:49 Anion Gap 14 mmol/L 11/26/16 04:49 BUN 6 mg/dL (7-17) L 11/26/16 04:49 Creatinine 0.4 mg/dL (0.7-1.2) L 11/26/16 04:49 Estimated GFR > 60 ml/min 11/26/16 04:49 BUN/Creatinine Ratio 15.00 % 11/26/16 04:49 Glucose 87 mg/dL (65-100) 11/26/16 04:49 Osmolality 263 Mosm/kg 11/25/16 12:37 Calcium 8.1 mg/dL (8.4-10.2) L 11/26/16 04:49 Magnesium 1.8 mg/dL (1.7-2.3) 11/25/16 09:57 Iron 13 ug/dL (37-170) L 11/25/16 09:57 TIBC 213 mcg/dL (250-450) L 11/25/16 09:57 Total Bilirubin < 0.2 mg/dL (0.1-1.2) 11/26/16 04:49 AST 37 units/L (5-40) 11/26/16 04:49 ALT 18 units/L (7-56) 11/26/16 04:49 Alkaline Phosphatase 83 units/L (35-129) 11/26/16 04:49 Total Protein 5.7 g/dL (6.3-8.2) L 11/26/16 04:49 Albumin 2.6 g/dL (3.9-5) L 11/26/16 04:49 Albumin/Globulin Ratio 0.8 % 11/26/16 04:49 Lipase 17 units/L (13-60) 11/25/16 09:57 TSH 0.610 mlU/mL (0.270-4.200) 11/25/16 11:09 Free T4 1.53 ng/dL (0.76-1.46) H 11/25/16 11:09 Urine Color Colorless (Yellow) 11/25/16 10:27 Urine Turbidity Clear (Clear) 11/25/16 10:27 Urine pH 7.0 (5.0-7.0) 11/25/16 10:27 Ur Specific [place] 1.012 (1.003-1.030) 11/26/16 04:30 Urine Protein <15 mg/dl mg/dL (Negative) 11/25/16 10:27 Urine Glucose (UA) Neg mg/dL (Negative) 11/25/16 10:27 Urine Ketones Neg mg/dL (Negative) 11/25/16 10:27 Urine Blood Neg (Negative) 11/25/16 10:27 Urine Nitrite Neg (Negative) 11/25/16 10:27 Urine Bilirubin Neg (Negative) 11/25/16 10:27 Urine Urobilinogen < 2.0 mg/dL (<2.0) 11/25/16 10:27 Ur Leukocyte Esterase Neg (Negative) 11/25/16 10:27 Urine WBC (Auto) < 1.0 /HPF (0.0-6.0) 11/25/16 10:27 Urine RBC (Auto) < 1.0 /HPF (0.0-6.0) 11/25/16 10:27 Urine Osmolality 146 Mosm/kg 11/26/16 04:30 Urine Sodium 21 mEq/L 11/26/16 04:30 Acetaminophen < 15.0 ug/mL (10.0-30.0) 11/25/16 11:09
[2016-11-26 21:35] LABS: Magnesium 1.8 mg/dL (1.7-2.3)
[2016-11-26 21:50] LABS: Potassium 2.7 mmol/L (3.6-5.0)
[2016-11-27] MEDS: PERCOCET 5/325 PO PRN ×4 (04:25→23:22)
[2016-11-27 06:11] LABS: Basophils % (Auto) 1.7 % (0.0-1.8); Eosinophils % (Auto) 3.2 % (0.0-4.3); Hematocrit 27.4 % (30.3-42.9); Hemoglobin 8.7 gm/dl (10.1-14.3); Mean Corpuscular HGB Conc 32 % (30-34); Mean Corpuscular Volume 74 fl (79-97); Platelet Count 484 K/mm3 (140-440); Red Blood Count 3.72 M/mm3 (3.65-5.03); Red Cell Distribution Width 16.8 % (13.2-15.2); White Blood Count 5.6 K/mm3 (4.5-11.0)
[2016-11-27 06:14] LABS: Mean Corpuscular Hemoglobin 23 pg (28-32)
[2016-11-27 06:27] LABS: Anion Gap 15 mmol/L; Blood Urea Nitrogen 3 mg/dL (7-17); Calcium 7.9 mg/dL (8.4-10.2); Carbon Dioxide 32 mmol/L (22-30); Chloride 96.4 mmol/L (98-107); Glucose 94 mg/dL (65-100); Magnesium 1.7 mg/dL (1.7-2.3); Sodium 141 mmol/L (137-145)
[2016-11-27 06:29] LABS: Potassium 2.6 mmol/L (3.6-5.0)
--- NOTE | 2016-11-27 10:52 | Progress Note ---
Assessment and Plan Assessment and plan: --Hyponatremia Continue replacement therapy, significant improvement in sodium levels closely monitor --Severe hypokalemia; replenish per protocol and monitor levels Placed on telemetry and EKG, check magnesium levels --Schizoaffective disorder; continue current psych medications Psych evaluation if needed --History of hypertension moderate control Continue current antihypertensives and when necessary medications --Severe protein calorie malnutrition Nutrition supplements and dietitian consultation for assistance with management ---Deficiency anemia Iron supplements closely monitor H&H and transfuse as needed --DVT prophylaxis with Lovenox --Full CODE STATUS The closely monitor the patient had just the management as needed plan of care discussed with the patient as well as the nurse I also discussed with the case management History Interval history: Patient seen and evaluated medical records reviewed No new events reported by the nursing staff Patient has severe hypokalemia Hospitalist Physical - Constitutional Vitals: Temp Pulse Resp BP Pulse Ox 97.7 F 59 L 16 155/79 97 11/27/16 07:00 11/27/16 07:00 11/27/16 07:00 11/27/16 07:00 11/27/16 07:00 General appearance: Present: no acute distress, cachectic, disheveled - EENT Eyes: Present: PERRL, EOM intact - Neck Neck: Present: supple, normal ROM - Respiratory Respiratory effort: normal Respiratory: bilateral: diminished, negative: rales, rhonchi, wheezing - Cardiovascular Rhythm: regular Heart Sounds: Present: S1 & S2 - Extremities Extremities: no ischemia, pulses intact, pulses symmetrical Peripheral Pulses: within normal limits - Abdominal General gastrointestinal: soft, non-tender, non-distended, normal bowel sounds - Integumentary Integumentary: Present: clear, warm - Psychiatric Psychiatric: appropriate mood/affect, cooperative - Neurologic Neurologic: CNII-XII intact, moves all extremities Results - Labs CBC & Chem 7: 11/27/16 05:40 11/27/16 05:40 Labs: Laboratory Last Values WBC 5.6 K/mm3 (4.5-11.0) 11/27/16 05:40 RBC 3.72 M/mm3 (3.65-5.03) 11/27/16 05:40 Hgb 8.7 gm/dl (10.1-14.3) L 11/27/16 05:40 Hct 27.4 % (30.3-42.9) L 11/27/16 05:40 MCV 74 fl (79-97) L 11/27/16 05:40 MCH 23 pg (28-32) L 11/27/16 05:40 MCHC 32 % (30-34) 11/27/16 05:40 RDW 16.8 % (13.2-15.2) H 11/27/16 05:40 Plt Count 484 K/mm3 (140-440) H 11/27/16 05:40 Lymph % (Auto) 19.5 % (13.4-35.0) 11/27/16 05:40 [place] % (Auto) 8.5 % (0.0-7.3) H 11/27/16 05:40 Eos % (Auto) 3.2 % (0.0-4.3) 11/27/16 05:40 Baso % (Auto) 1.7 % (0.0-1.8) 11/27/16 05:40 Lymph # 1.1 K/mm3 (1.2-5.4) L 11/27/16 05:40 [place] # 0.5 K/mm3 (0.0-0.8) 11/27/16 05:40 Eos # 0.2 K/mm3 (0.0-0.4) 11/27/16 05:40 Baso # 0.1 K/mm3 (0.0-0.1) 11/27/16 05:40 Seg Neutrophils % 67.1 % (40.0-70.0) 11/27/16 05:40 Seg Neutrophils # 3.7 K/mm3 (1.8-7.7) 11/27/16 05:40 Sodium 141 mmol/L (137-145) 11/27/16 05:40 Potassium 2.6 mmol/L (3.6-5.0) L* 11/27/16 05:40 Chloride 96.4 mmol/L (98-107) L 11/27/16 05:40 Carbon Dioxide 32 mmol/L (22-30) H 11/27/16 05:40 Anion Gap 15 mmol/L 11/27/16 05:40 BUN 3 mg/dL (7-17) L 11/27/16 05:40 Creatinine 0.4 mg/dL (0.7-1.2) L 11/27/16 05:40 Estimated GFR > 60 ml/min 11/27/16 05:40 BUN/Creatinine Ratio 7.50 % 11/27/16 05:40 Glucose 94 mg/dL (65-100) 11/27/16 05:40 Osmolality 263 Mosm/kg 11/25/16 12:37 Calcium 7.9 mg/dL (8.4-10.2) L 11/27/16 05:40 Magnesium 1.7 mg/dL (1.7-2.3) 11/27/16 05:40 Iron 13 ug/dL (37-170) L 11/25/16 09:57 TIBC 213 mcg/dL (250-450) L 11/25/16 09:57 Total Bilirubin < 0.2 mg/dL (0.1-1.2) 11/26/16 04:49 AST 37 units/L (5-40) 11/26/16 04:49 ALT 18 units/L (7-56) 11/26/16 04:49 Alkaline Phosphatase 83 units/L (35-129) 11/26/16 04:49 Total Protein 5.7 g/dL (6.3-8.2) L 11/26/16 04:49 Albumin 2.6 g/dL (3.9-5) L 11/26/16 04:49 Albumin/Globulin Ratio 0.8 % 11/26/16 04:49 Lipase 17 units/L (13-60) 11/25/16 09:57 TSH 0.610 mlU/mL (0.270-4.200) 11/25/16 11:09 Free T4 1.53 ng/dL (0.76-1.46) H 11/25/16 11:09 Urine Color Colorless (Yellow) 11/25/16 10:27 Urine Turbidity Clear (Clear) 11/25/16 10:27 Urine pH 7.0 (5.0-7.0) 11/25/16 10:27 Ur Specific [place] 1.012 (1.003-1.030) 11/26/16 04:30 Urine Protein <15 mg/dl mg/dL (Negative) 11/25/16 10:27 Urine Glucose (UA) Neg mg/dL (Negative) 11/25/16 10:27 Urine Ketones Neg mg/dL (Negative) 11/25/16 10:27 Urine Blood Neg (Negative) 11/25/16 10:27 Urine Nitrite Neg (Negative) 11/25/16 10:27 Urine Bilirubin Neg (Negative) 11/25/16 10:27 Urine Urobilinogen < 2.0 mg/dL (<2.0) 11/25/16 10:27 Ur Leukocyte Esterase Neg (Negative) 11/25/16 10:27 Urine WBC (Auto) < 1.0 /HPF (0.0-6.0) 11/25/16 10:27 Urine RBC (Auto) < 1.0 /HPF (0.0-6.0) 11/25/16 10:27 Urine Osmolality 146 Mosm/kg 11/26/16 04:30 Urine Sodium 21 mEq/L 11/26/16 04:30 Acetaminophen < 15.0 ug/mL (10.0-30.0) 11/25/16 11:09
[2016-11-27] MEDS: NACL 0.9% 1000 ML 1,000 ML IV SCH ×2 (10:53→23:25)
[2016-11-27] MEDS ORDERED: K-DUR PO ONE (11:00)
[2016-11-27] MEDS: KCL 10MEQ/100ML 100 ML IV SCH ×3 (11:48→14:22)
[2016-11-28] MEDS: PERCOCET 5/325 PO PRN ×3 (06:41→18:07)
[2016-11-28 07:36] LABS: Anion Gap 15 mmol/L; Blood Urea Nitrogen 3 mg/dL (7-17); Calcium 8.6 mg/dL (8.4-10.2); Carbon Dioxide 32 mmol/L (22-30); Chloride 92.1 mmol/L (98-107); Glucose 98 mg/dL (65-100); Magnesium 1.6 mg/dL (1.7-2.3); Sodium 136 mmol/L (137-145)
[2016-11-28 07:40] LABS: Potassium 2.8 mmol/L (3.6-5.0)
[2016-11-28] MEDS ORDERED: K-DUR PO ONE (08:18)
[2016-11-28] MEDS ORDERED: MAGNESIUM SULFATE 2GM/50ML 50 ML IV ONE (08:19)
[2016-11-28] MEDS: COZAAR PO SCH (09:20)
[2016-11-28] MEDS: K-DUR PO SCH (11:57)
[2016-11-28] MEDS: KCL 10MEQ/100ML 100 ML IV SCH ×4 (12:39→16:21)
--- NOTE | 2016-11-28 20:13 | Progress Note ---
Assessment and Plan Assessment and plan: --Hyponatremia Continue replacement therapy, significant improvement in sodium levels closely monitor --Severe hypokalemia; replenish per protocol and monitor levels Placed on telemetry and EKG, check magnesium levels --Schizoaffective disorder; continue current psych medications Psych evaluation if needed --History of hypertension moderate control Continue current antihypertensives and when necessary medications --Severe protein calorie malnutrition Nutrition supplements and dietitian consultation for assistance with management ---Deficiency anemia Iron supplements closely monitor H&H and transfuse as needed --DVT prophylaxis with Lovenox --Full CODE STATUS The closely monitor the patient had just the management as needed plan of care discussed with the patient as well as the nurse I also discussed with the case management History Interval history: Patient seen and evaluated medical records reviewed No new events reported by the nursing staff patient feels better, Hospitalist Physical - Constitutional Vitals: Temp Pulse Resp BP Pulse Ox 98.4 F 76 14 140/62 96 11/28/16 15:40 11/28/16 15:40 11/28/16 15:40 11/28/16 15:40 11/28/16 08:00 General appearance: Present: no acute distress, cachectic, disheveled - EENT Eyes: Present: PERRL, EOM intact - Neck Neck: Present: supple, normal ROM - Respiratory Respiratory: negative: rales, rhonchi, wheezing - Cardiovascular Rhythm: regular Heart Sounds: Present: S1 & S2 - Extremities Extremities: no ischemia, pulses intact, pulses symmetrical Peripheral Pulses: within normal limits - Abdominal General gastrointestinal: soft, non-tender, non-distended, normal bowel sounds - Integumentary Integumentary: Present: clear, warm - Psychiatric Psychiatric: appropriate mood/affect, cooperative - Neurologic Neurologic: moves all extremities Results - Labs CBC & Chem 7: 11/27/16 05:40 11/29/16 09:52 Labs: Laboratory Last Values WBC 5.6 K/mm3 (4.5-11.0) 11/27/16 05:40 RBC 3.72 M/mm3 (3.65-5.03) 11/27/16 05:40 Hgb 8.7 gm/dl (10.1-14.3) L 11/27/16 05:40 Hct 27.4 % (30.3-42.9) L 11/27/16 05:40 MCV 74 fl (79-97) L 11/27/16 05:40 MCH 23 pg (28-32) L 11/27/16 05:40 MCHC 32 % (30-34) 11/27/16 05:40 RDW 16.8 % (13.2-15.2) H 11/27/16 05:40 Plt Count 484 K/mm3 (140-440) H 11/27/16 05:40 Lymph % (Auto) 19.5 % (13.4-35.0) 11/27/16 05:40 [place] % (Auto) 8.5 % (0.0-7.3) H 11/27/16 05:40 Eos % (Auto) 3.2 % (0.0-4.3) 11/27/16 05:40 Baso % (Auto) 1.7 % (0.0-1.8) 11/27/16 05:40 Lymph # 1.1 K/mm3 (1.2-5.4) L 11/27/16 05:40 [place] # 0.5 K/mm3 (0.0-0.8) 11/27/16 05:40 Eos # 0.2 K/mm3 (0.0-0.4) 11/27/16 05:40 Baso # 0.1 K/mm3 (0.0-0.1) 11/27/16 05:40 Seg Neutrophils % 67.1 % (40.0-70.0) 11/27/16 05:40 Seg Neutrophils # 3.7 K/mm3 (1.8-7.7) 11/27/16 05:40 Sodium 136 mmol/L (137-145) L 11/28/16 06:50 Potassium 3.7 mmol/L (3.6-5.0) D 11/28/16 14:39 Chloride 92.1 mmol/L (98-107) L 11/28/16 06:50 Carbon Dioxide 32 mmol/L (22-30) H 11/28/16 06:50 Anion Gap 15 mmol/L 11/28/16 06:50 BUN 3 mg/dL (7-17) L 11/28/16 06:50 Creatinine 0.4 mg/dL (0.7-1.2) L 11/28/16 06:50 Estimated GFR > 60 ml/min 11/28/16 06:50 BUN/Creatinine Ratio 7.50 % 11/28/16 06:50 Glucose 98 mg/dL (65-100) 11/28/16 06:50 Osmolality 263 Mosm/kg 11/25/16 12:37 Calcium 8.6 mg/dL (8.4-10.2) 11/28/16 06:50 Magnesium 1.6 mg/dL (1.7-2.3) L 11/28/16 06:50 Iron 13 ug/dL (37-170) L 11/25/16 09:57 TIBC 213 mcg/dL (250-450) L 11/25/16 09:57 Total Bilirubin < 0.2 mg/dL (0.1-1.2) 11/26/16 04:49 AST 37 units/L (5-40) 11/26/16 04:49 ALT 18 units/L (7-56) 11/26/16 04:49 Alkaline Phosphatase 83 units/L (35-129) 11/26/16 04:49 Total Protein 5.7 g/dL (6.3-8.2) L 11/26/16 04:49 Albumin 2.6 g/dL (3.9-5) L 11/26/16 04:49 Albumin/Globulin Ratio 0.8 % 11/26/16 04:49 Lipase 17 units/L (13-60) 11/25/16 09:57 TSH 0.610 mlU/mL (0.270-4.200) 11/25/16 11:09 Free T4 1.53 ng/dL (0.76-1.46) H 11/25/16 11:09 Urine Color Colorless (Yellow) 11/25/16 10:27 Urine Turbidity Clear (Clear) 11/25/16 10:27 Urine pH 7.0 (5.0-7.0) 11/25/16 10:27 Ur Specific [place] 1.012 (1.003-1.030) 11/26/16 04:30 Urine Protein <15 mg/dl mg/dL (Negative) 11/25/16 10:27 Urine Glucose (UA) Neg mg/dL (Negative) 11/25/16 10:27 Urine Ketones Neg mg/dL (Negative) 11/25/16 10:27 Urine Blood Neg (Negative) 11/25/16 10:27 Urine Nitrite Neg (Negative) 11/25/16 10:27 Urine Bilirubin Neg (Negative) 11/25/16 10:27 Urine Urobilinogen < 2.0 mg/dL (<2.0) 11/25/16 10:27 Ur Leukocyte Esterase Neg (Negative) 11/25/16 10:27 Urine WBC (Auto) < 1.0 /HPF (0.0-6.0) 11/25/16 10:27 Urine RBC (Auto) < 1.0 /HPF (0.0-6.0) 11/25/16 10:27 Urine Osmolality 146 Mosm/kg 11/26/16 04:30 Urine Sodium 21 mEq/L 11/26/16 04:30 Acetaminophen < 15.0 ug/mL (10.0-30.0) 11/25/16 11:09
[2016-11-29] MEDS: PERCOCET 5/325 PO PRN ×3 (02:36→14:00)
[2016-11-29 10:35] LABS: Blood Urea Nitrogen 6 mg/dL (7-17); Calcium 8.9 mg/dL (8.4-10.2); Carbon Dioxide 33 mmol/L (22-30); Chloride 93.3 mmol/L (98-107); Glucose 127 mg/dL (65-100); Magnesium 2.1 mg/dL (1.7-2.3); Potassium 3.9 mmol/L (3.6-5.0); Sodium 138 mmol/L (137-145)
[2016-11-29 10:40] LABS: Anion Gap 16 mmol/L
[2016-11-29] MEDS: K-DUR PO SCH (11:43)
[2016-11-29] MEDS: COZAAR PO SCH (11:43)
--- NOTE | 2016-11-29 12:16 | Discharge Summary ---
Providers - Providers Date of Admission: 11/25/16 12:06 Date of discharge: 11/29/16 Attending physician: GLADIS LIGHT Primary care physician: TATY NAIR Hospitalization Condition: Stable Disposition: DC/TX HOME UNDER HOME HEALTH Core Measure Documentation - Palliative Care Palliative Care/ Comfort Measures: Not Applicable - Core Measures Any of the following diagnoses?: none Exam - Constitutional Vitals: Temp Pulse Resp BP Pulse Ox 98.1 F 68 16 120/60 97 11/29/16 08:00 11/29/16 08:00 11/29/16 08:00 11/29/16 08:00 11/29/16 08:00 General appearance: Present: no acute distress, cachectic, disheveled - EENT Eyes: Present: PERRL, EOM intact - Neck Neck: Present: supple, normal ROM - Respiratory Respiratory effort: normal Respiratory: negative: rales, rhonchi, wheezing - Cardiovascular Rhythm: regular Heart Sounds: Present: S1 & S2 - Extremities Extremities: no ischemia, pulses intact, pulses symmetrical - Abdominal General gastrointestinal: Present: soft, non-tender, non-distended, normal bowel sounds - Integumentary Integumentary: Present: clear, warm - Musculoskeletal Musculoskeletal: strength equal bilaterally - Psychiatric Psychiatric: appropriate mood/affect, cooperative - Neurologic Neurologic: other (involuntary jerky movements[old h/o]) Plan Activity: advance as tolerated, fall precautions Diet: regular Special Instructions: physical therapy, other (home health) Additional Instructions: f/u Psych 1 week. check potassium,magnesium at PMD office in 3-4 days Follow up with: TATY NAIR MD [Primary Care Provider] - 7 Days Prescriptions: Losartan [Cozaar] 100 mg PO QDAY #30 tablet Mirtazapine [Remeron] 15 mg PO QHS #15 tablet Potassium Chloride 20 meq PO QDAY #7 packet
[2016-11-29 16:58] VITALS: BP 116/70
== END 2016-11-29 21:50 | disposition home health service (06) | DRG 640 ==
LOC: ED 09:16 → 3A 12:06
PROVIDERS: ADMIT Internal Medicine; ATTEND Internal Medicine
DX: R63.1 Polydipsia (principal); E43 Unspecified severe protein-calorie malnutrition; E87.1 Hypo-osmolality and hyponatremia; K92.1 Melena; Z68.1 Body mass index [BMI] 19.9 or less, adult; E87.6 Hypokalemia; D50.9 Iron deficiency anemia, unspecified; I10 Essential (primary) hypertension; F25.9 Schizoaffective disorder, unspecified; J44.9 Chronic obstructive pulmonary disease, unspecified; R74.0 Nonspecific elevation of levels of transaminase and lactic acid dehydrogenase [LDH]; R55 Syncope and collapse; Z88.6 Allergy status to analgesic agent; Z88.8 Allergy status to other drugs, medicaments and biological substances; Z79.899 Other long term (current) drug therapy; Z90.49 Acquired absence of other specified parts of digestive tract; Z98.890 Other specified postprocedural states; Z90.710 Acquired absence of both cervix and uterus; Z87.11 Personal history of peptic ulcer disease; Z82.49 Family history of ischemic heart disease and other diseases of the circulatory system; Z83.3 Family history of diabetes mellitus
CPT/HCPCS: 36415; 70450; 71010; 74178; 80048; 80053; 80320; 81001; 81003; 83550; 83690; 83735; 83930; 83935; 84132; 84295; 84300; 84439; 84443; 85025; 93005; 93010; 93306; 96360; 96361; G0480; J3475; J3480; J7030; Q9967

== ENCOUNTER 2016-12-03 10:55 | Emergency (ER) | payer MEDICARE ==
[2016-12-03 12:23] LABS: Alanine Aminotransferase 15 units/L (7-56); Albumin 2.8 g/dL (3.9-5); Albumin/Globulin Ratio 1.1 %; Alkaline Phosphatase 73 units/L (35-129); Anion Gap 15 mmol/L; BUN/Creatinine Ratio 18.57; Bilirubin,Total < 0.2 mg/dL (0.1-1.2); Blood Urea Nitrogen 13 mg/dL (7-17); Calcium 7.8 mg/dL (8.4-10.2); Carbon Dioxide 27 mmol/L (22-30); Chloride 96.2 mmol/L (98-107); Glucose 92 mg/dL (65-100); Lipase 36 units/L (13-60); Potassium 3.1 mmol/L (3.6-5.0); Sodium 135 mmol/L (137-145); Total Protein 5.4 g/dL (6.3-8.2)
--- NOTE | 2016-12-03 12:26 | Emergency Department Report ---
[id number] 11:36 - HPI HPI: This is a 56-year-old female presents to the emergency department by EMS from home with complaint of a 2 day history of generalized abdominal pain. Patient also complains of having some lower blood pressure but then also admits to a history of low blood pressure and that it "always runs low." She has some nausea but denies any vomiting, diarrhea, fever, back pain, dysuria, vaginal bleeding or discharge. She tried some Pepto-Bismol for her symptoms without much relief. Her primary care doctor is Dr. Kong Lynne. No recent travel. Patient was recently admitted to [facility] and discharged a few days ago with low potassium and sodium levels. ED Past Medical Hx - Past Medical History Previous Medical History?: Yes Hx Hypertension: Yes Hx Heart Attack/AMI: No Hx Congestive Heart Failure: No Hx Diabetes: No Hx Deep Vein Thrombosis: No Hx Pulmonary Embolism: No Hx Liver Disease: No Hx Renal Disease: No Hx Sickle Cell Disease: No Hx Seizures: No Hx Kidney Stones: No Hx Psychiatric Treatment: Yes (schizoaffective) Hx Asthma: No Hx COPD: Yes Hx Tuberculosis: No Hx HIV: No Additional medical history: hiatal hernia. holes in esophagus. gi bleed-- bleeding ulcers. schizoaffective disorder - Surgical History Hx Coronary Stent: No Hx Open Heart Surgery: No Hx Pacemaker: No Hx Internal Defibrillator: No Hx Cholecystectomy: No Hx Appendectomy: Yes Hx Breast Surgery: No Additional Surgical History: esophagus repair. left foot surgery. tonsilectomy. x 2. hysterectomy. 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 - Social History Smoking Status: Never Smoker Substance Use Type: None - Medications Home Medications: Home Medications Medication Instructions Recorded Confirmed Last Taken Type Potassium Chloride 20 meq PO QDAY #30 packet 12/09/14 11/24/15 Unknown Rx Diltiazem [Cardizem] 60 mg PO Q6HR #120 tablet 03/04/15 11/24/15 Unknown Rx Metoclopramide [Reglan TAB] 10 mg PO Q6H PRN #30 tablet 03/04/15 11/24/15 Unknown Rx Sucralfate [Carafate] 1 gm PO ACHS #120 tablet 03/04/15 11/24/15 Unknown Rx Ascorbic Acid [Vitamin C] 500 mg PO QDAY 11/24/15 12/03/16 11/23/15 09:00 History Dicyclomine [Bentyl] 10 mg PO QID 11/24/15 12/03/16 11/23/15 22:00 History Ziprasidone HCl [Geodon] 80 mg PO QHS #30 10/17/16 12/03/16 11/23/15 22:00 Rx Losartan [Cozaar] 100 mg PO QDAY #30 tablet 11/29/16 12/03/16 Unknown Rx Mirtazapine [Remeron] 15 mg PO QHS #15 tablet 11/29/16 12/03/16 Unknown Rx Potassium Chloride 20 meq PO QDAY #7 packet 11/29/16 12/03/16 Unknown Rx Ondansetron [Zofran Odt] 4 mg PO Q8H PRN #10 tab.rapdis 12/03/16 Unknown Rx ED Review of Systems ROS: Stated complaint: HYPERTENSION/ABD PAIN Other details as noted in HPI Comment: All other systems reviewed and negative Constitutional: denies: chills, fever Eyes: denies: eye pain, eye discharge, vision change ENT: denies: ear pain, throat pain Respiratory: denies: cough, shortness of breath, wheezing Cardiovascular: denies: chest pain, palpitations Gastrointestinal: abdominal pain, nausea. denies: vomiting Genitourinary: denies: urgency, dysuria, discharge Musculoskeletal: denies: back pain, joint swelling, arthralgia Skin: denies: rash, lesions Neurological: denies: headache, weakness, paresthesias Physical Exam - Physical Exam Vital Signs: Vital Signs 12/03/16 12/03/16 12/03/16 11:03 11:04 11:06 Pulse Rate 71 70 Respiratory 12 18 Rate Blood Pressure 95/32 95/32 95/32 O2 Sat by Pulse 100 99 99 Oximetry 12/03/16 12/03/16 12/03/16 11:08 11:10 11:12 Pulse Rate 70 68 70 Respiratory 19 17 16 Rate Blood Pressure 95/32 95/32 95/32 O2 Sat by Pulse 100 100 99 Oximetry 12/03/16 12/03/16 12/03/16 11:14 11:15 11:16 Pulse Rate 148 H 66 Respiratory 38 H 46 H 33 H Rate Blood Pressure 95/32 92/42 92/42 O2 Sat by Pulse 100 100 100 Oximetry 12/03/16 12/03/16 12/03/16 11:18 11:20 11:22 Pulse Rate 50 L 67 Respiratory 22 21 13 Rate Blood Pressure 92/42 92/42 92/42 O2 Sat by Pulse 96 100 100 Oximetry 12/03/16 12/03/16 11:24 12:00 Pulse Rate 65 63 Respiratory 15 13 Rate Blood Pressure 92/42 91/51 O2 Sat by Pulse 100 100 Oximetry Physical Exam: GENERAL: Thin habitus. Patient does not appear in any acute distress. HEENT: Normocephalic. Atraumatic. Extraocular motions are intact. Patient has moist mucous membranes. Pupils equal reactive to light bilaterally. NECK: Supple. Trachea is midline. CHEST/LUNGS: Clear to auscultation. There is no respiratory distress noted. HEART/CARDIOVASCULAR: Regular. There is no tachycardia. There is no gallop rub or murmur. ABDOMEN: Abdomen is soft. Mild generalized tenderness to palpation of the abdomen. No guarding or rebound tenderness. Patient has normal bowel sounds. There is no abdominal distention. SKIN: There is no rash. There is no diaphoresis. NEURO: The patient is awake, alert, and oriented. The patient is cooperative. The patient has no focal neurologic deficits. The patient has normal speech and gait. MUSCULOSKELETAL: There is no tenderness or deformity. There is no limitation range of motion. There is no evidence of acute injury. ED Course Vital Signs 12/03/16 12/03/16 12/03/16 11:03 11:04 11:06 Pulse Rate 71 70 Respiratory 12 18 Rate Blood Pressure 95/32 95/32 95/32 O2 Sat by Pulse 100 99 99 Oximetry 12/03/16 12/03/16 12/03/16 11:08 11:10 11:12 Pulse Rate 70 68 70 Respiratory 19 17 16 Rate Blood Pressure 95/32 95/32 95/32 O2 Sat by Pulse 100 100 99 Oximetry 12/03/16 12/03/16 12/03/16 11:14 11:15 11:16 Pulse Rate 148 H 66 Respiratory 38 H 46 H 33 H Rate Blood Pressure 95/32 92/42 92/42 O2 Sat by Pulse 100 100 100 Oximetry 12/03/16 12/03/16 12/03/16 11:18 11:20 11:22 Pulse Rate 50 L 67 Respiratory 22 21 13 Rate Blood Pressure 92/42 92/42 92/42 O2 Sat by Pulse 96 100 100 Oximetry 12/03/16 12/03/16 11:24 12:00 Pulse Rate 65 63 Respiratory 15 13 Rate Blood Pressure 92/42 91/51 O2 Sat by Pulse 100 100 Oximetry ED Medical Decision Making - Lab Data Result diagrams: 12/03/16 11:46 12/03/16 11:46 - Radiology Data Radiology results: image reviewed interpreted by me: Abdominal x-ray does not show any acute process including no signs of obstruction. - Medical Decision Making 56-year-old female presents with complaint of abdominal pain, nausea and vomiting. However since the moment the patient got to the emergency department she has been asking for something to eat. Patient says she has a history of low blood pressure. Her blood pressure never dropped below systolic 90 and went up to 115 without any IV fluid resuscitation. Patient was a hard IV stick. Patient's labs came back unremarkable except for some hypokalemia. This is consistent with patient's previous visit however this time it was much less severe and able to be treated orally. There was no significant hyponatremia this time. Abdominal x-ray does not show any acute process. Vital signs were stable throughout her ED course. Patient will be discharged home to follow-up with her primary care doctor. She will return to the ER with any worsening of her symptoms or any acute distress. - Differential Diagnosis colitis, gastroenteritis, food poisoning, diverticulitis Critical Care Time: No Critical care attestation.: If time is entered above; I have spent that time in minutes in the direct care of this critically ill patient, excluding procedure time. ED Disposition Clinical Impression: Hypokalemia with normal acid-base balance Abdominal pain Qualifiers: Abdominal location: generalized Qualified Code(s): R10.84 - Generalized abdominal pain Nausea and vomiting Qualifiers: Vomiting type: unspecified Vomiting Intractability: non-intractable Qualified Code(s): R11.2 - Nausea with vomiting, unspecified Disposition: DISCHARGED TO HOME OR SELFCARE Is pt being admited?: No Condition: Stable Instructions: Abdominal Pain (ED) Additional Instructions: Please increase her oral rehydration. Please follow-up with a primary care doctor in the next few days. Return to the emergency department with any acute distress. Prescriptions: Ondansetron [Zofran Odt] 4 mg PO Q8H PRN #10 tab.rapdis PRN Reason: Nausea Referrals: PRIMARY CARE, [Primary Care Provider] - 3-5 Days ANTHONY LONG MD [Staff Physician] - 3-[address] [facility] [Outside] - 3-5 Days [facility] [Outside] - 3-5 Days [facility] [Outside] - 3-5 Days [facility] [Outside] - 3-5 Days Time of Disposition: 15:27
[2016-12-03 12:35] LABS: Basophils % (Auto) 0.6 % (0.0-1.8); Hematocrit 24.5 % (30.3-42.9); Hemoglobin 7.8 gm/dl (10.1-14.3); Mean Corpuscular HGB Conc 32 % (30-34); Mean Corpuscular Hemoglobin 24 pg (28-32); Mean Corpuscular Volume 74 fl (79-97); Platelet Count 393 K/mm3 (140-440); Red Cell Distribution Width 17.7 % (13.2-15.2); White Blood Count 7.7 K/mm3 (4.5-11.0)
[2016-12-03 12:36] LABS: Bilirubin,Urine NEG (Negative); Blood,Urine NEG (Negative); Ketones,Urine NEG (Negative); Leukocyte Esterase,Urine SM (Negative); Mucus,Urine FEW /HPF; Nitrite,Urine NEG (Negative); Protein,Urine <15 mg/dL mg/dL (Negative); Urobilinogen,Urine < 2.0 mg/dL (<2.0)
--- NOTE | 2016-12-03 13:08 | XRay Report ---
ABDOMEN TWO VIEWS: History: Abdominal pain. There is no evidence of free air beneath the diaphragms. The gas pattern within the abdomen is unremarkable. There is no evidence of bowel dilatation, significant air-fluid levels, or masses. The psoas margins are adequately visualized. IMPRESSION: Unremarkable abdomen.
[2016-12-03] MEDS ORDERED: K-DUR PO ONE (13:19)
[2016-12-03] MEDS ORDERED: NACL 0.9% 1000 ML 1,000 ML IV ONE (13:20)
[2016-12-03] MEDS ORDERED: ULTRAM PO ONE (14:22)
[2016-12-03 15:48] VITALS: BP 114/85
== END 2016-12-03 15:49 | disposition home or self-care (01) ==
LOC: ED 10:55
DX: E87.6 Hypokalemia (principal); R10.84 Generalized abdominal pain; R11.2 Nausea with vomiting, unspecified; I10 Essential (primary) hypertension; F20.9 Schizophrenia, unspecified; Z90.49 Acquired absence of other specified parts of digestive tract
CPT/HCPCS: 36415; 74020; 80053; 81001; 83690; 85025; 96360; 99284; J7030

== ENCOUNTER 2017-04-27 21:28 | Inpatient (IN) | payer MEDICARE ==
[2017-04-27 23:18] LABS: Alanine Aminotransferase 15 units/L (7-56); Albumin 4.4 g/dL (3.9-5); Albumin/Globulin Ratio 1.5 %; Alkaline Phosphatase 160 units/L (35-129); Anion Gap 20 mmol/L; Blood Urea Nitrogen 13 mg/dL (7-17); Carbon Dioxide 33 mmol/L (22-30); Chloride 72.2 mmol/L (98-107); Glucose 117 mg/dL (65-100); Lipase 23 units/L (13-60); Sodium 122 mmol/L (137-145); Total Protein 7.3 g/dL (6.3-8.2)
[2017-04-27 23:19] LABS: Hematocrit 37.5 % (30.3-42.9); Hemoglobin 13.1 gm/dl (10.1-14.3); Mean Corpuscular HGB Conc 35 % (30-34); Mean Corpuscular Hemoglobin 28 pg (28-32); Mean Corpuscular Volume 81 fl (79-97); Platelet Count 410 K/mm3 (140-440); Red Blood Count 4.65 M/mm3 (3.65-5.03); White Blood Count 18.6 K/mm3 (4.5-11.0)
[2017-04-28 00:18] LABS: Potassium 2.8 mmol/L (3.6-5.0)
[2017-04-28] MEDS ORDERED: NACL 0.9% 1000 ML 1,000 ML IV ONE (00:18)
[2017-04-28] MEDS ORDERED: ZOFRAN IV ONE (00:18)
[2017-04-28] MEDS ORDERED: K-DUR PO ONE (00:19)
[2017-04-28] MEDS ORDERED: MORPHINE IV ONE (00:19)
--- NOTE | 2017-04-28 00:27 | Emergency Department Report ---
HPI - General Chief Complaint: Abdominal Pain Time Seen by Provider: 04/28/17 00:04 - HPI HPI: This is a 56-year-old female presents to the emergency department from home by EMS with complaint of some mid abdominal pain, nausea, vomiting and diarrhea that started earlier today. She thinks it is due to something that she ate. She says she has vomited about 6-7 times today. She is not taken anything for her symptoms prior to presentation. She has a past medical history of COPD, hypertension, hiatal hernia, previous GI bleed. She has a surgical history of esophagus repair, tonsillectomy, hysterectomy and a prior PEG tube that is no longer there. She has a psychiatric history of schizoaffective disorder and schizophrenia but denies any current hallucinations or suicidal/homicidal ideations. She has a primary care physician but cannot currently remember their name. No recent travel or sick contacts at home. ED Past Medical Hx - Past Medical History Previous Medical History?: Yes Hx Hypertension: Yes Hx Heart Attack/AMI: No Hx Congestive Heart Failure: No Hx Diabetes: No Hx Deep Vein Thrombosis: No Hx Pulmonary Embolism: No Hx Liver Disease: No Hx Renal Disease: No Hx Sickle Cell Disease: No Hx Seizures: No Hx Kidney Stones: No Hx Psychiatric Treatment: Yes (schizoaffective) Hx Asthma: No Hx COPD: Yes Hx Tuberculosis: No Hx HIV: No Additional medical history: hiatal hernia. holes in esophagus. gi bleed-- bleeding ulcers. schizoaffective disorder - Surgical History Hx Coronary Stent: No Hx Open Heart Surgery: No Hx Pacemaker: No Hx Internal Defibrillator: No Hx Cholecystectomy: No Hx Appendectomy: Yes Hx Breast Surgery: No Additional Surgical History: esophagus repair. left foot surgery. tonsilectomy. x 2. hysterectomy. 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 - Social History Smoking Status: Former Smoker - Medications Home Medications: Home Medications Medication Instructions Recorded Confirmed Last Taken Type Ascorbic Acid [Vitamin C] 500 mg PO QDAY 11/24/15 12/03/16 11/23/15 09:00 History Dicyclomine [Bentyl] 10 mg PO QID 11/24/15 12/03/16 11/23/15 22:00 History Ziprasidone HCl [Geodon] 80 mg PO QHS #30 10/17/16 12/03/16 11/23/15 22:00 Rx Losartan [Cozaar] 100 mg PO QDAY #30 tablet 11/29/16 12/03/16 Unknown Rx Mirtazapine [Remeron] 15 mg PO QHS #15 tablet 11/29/16 12/03/16 Unknown Rx Potassium Chloride 20 meq PO QDAY #7 packet 11/29/16 12/03/16 Unknown Rx Ondansetron [Zofran Odt] 4 mg PO Q8H PRN #10 tab.rapdis 12/03/16 Unknown Rx ED Review of Systems ROS: Stated complaint: NAUSEA Other details as noted in HPI Comment: All other systems reviewed and negative Constitutional: denies: chills, fever Eyes: denies: eye pain, eye discharge, vision change ENT: denies: ear pain, throat pain Respiratory: denies: cough, shortness of breath, wheezing Cardiovascular: denies: chest pain, palpitations Gastrointestinal: abdominal pain, nausea, vomiting, diarrhea Genitourinary: denies: urgency, dysuria, discharge Musculoskeletal: denies: back pain, joint swelling, arthralgia Skin: denies: rash, lesions Neurological: denies: headache, weakness, paresthesias Physical Exam - Physical Exam Vital Signs: Vital Signs 04/27/17 04/27/17 22:16 22:30 Temperature 98.6 F 98.6 F Pulse Rate 91 H 91 H Respiratory 20 20 Rate Blood Pressure 178/100 Blood Pressure 178/100 [Right] O2 Sat by Pulse 97 97 Oximetry Physical Exam: GENERAL: The patient is well-developed well-nourished. Thin habitus. HEENT: Normocephalic. Atraumatic. Extraocular motions are intact. Patient has moist mucous membranes. Pupils equal reactive to light bilaterally. NECK: Supple. Trachea is midline. CHEST/LUNGS: Clear to auscultation. There is no respiratory distress noted. HEART/CARDIOVASCULAR: Regular. There is no tachycardia. There is no gallop rub or murmur. ABDOMEN: Abdomen is soft. There is some tenderness to palpation to the lower quadrants of the abdomen. No guarding rebound tenderness. Patient has normal bowel sounds. There is no abdominal distention. SKIN: There is no rash. There is no edema. There is no diaphoresis. NEURO: The patient is awake, alert, and oriented. The patient is cooperative. The patient has no focal neurologic deficits. The patient has normal speech. MUSCULOSKELETAL: There is no tenderness or deformity. There is no limitation range of motion. There is no evidence of acute injury. ED Course Vital Signs 04/27/17 04/27/17 22:16 22:30 Temperature 98.6 F 98.6 F Pulse Rate 91 H 91 H Respiratory 20 20 Rate Blood Pressure 178/100 Blood Pressure 178/100 [Right] O2 Sat by Pulse 97 97 Oximetry ED Medical Decision Making - Lab Data Result diagrams: 04/27/17 22:43 04/27/17 22:43 - Radiology Data Radiology results: report reviewed PROCEDURE: CT ABDOMEN PELVIS W CON TECHNIQUE: Computerized axial tomography of the abdomen and pelvis was performed after the IV injection of iodinated nonionic contrast. HISTORY: abd pain COMPARISON: 11/25/2016 FINDINGS: Visualized lower thorax: Minimal atelectasis bilateral lower lungs. Chronic obstructive pulmonary changes are noted.. Liver: The liver is fatty infiltrated. Spleen: Normal size and attenuation. Gallbladder and biliary system: Normal. Pancreas: The size of the pancreas is normal. There is some dilatation of pancreatic duct.. Adrenals: There is an area of hypoattenuation in the bilateral adrenal glands this measures approximately 1 centimeter, adenoma is suspected.. Kidneys: Both kidneys have normal size. There is a large cyst in the posterior lateral left renal cortex this measures 4 centimeters. Tiny sub centimeter cyst identified in the upper right renal cortex. There is mild prominence of the bilateral collecting systems. This involves the proximal collecting systems is well as the ureters. No obstructing stone or lesion is seen. Nonobstructive uropathy is suspected.. GI tract: The stomach is normal. There is a large fixed hiatal hernia. The small bowel has a normal caliber without obstruction, ileus or enteritis. The cecum, appendix region and colon are normal.. Lymph nodes and mesentery: Normal. Vasculature: Moderate atherosclerosis of the aorta and branching vessels. Bladder: Normal. Reproductive organs: The uterus is absent. No pelvic masses.. Peritoneum: No free fluid. Musculoskeletal structures: No significant abnormality. Other: None. IMPRESSION: There is prominence of the bilateral renal collecting systems, no obstructing stone or lesion is identified. Nonobstructive uropathy is suspected. There is no evidence of intestinal obstruction. No ileus or enteritis. A large hiatal hernia is identified. Fatty infiltration of the liver is noted. Bilateral adrenal adenomas are suspected and unchanged. - Medical Decision Making 56-year-old female presents to the emergency department with some lower abdominal pain, nausea, vomiting. She has some abnormal labs with a leukocytosis of 19,000, hyponatremia with sodium of 122 and hypokalemia potassium of 2.8. With the elevated white count and her abdominal pain, a CT of the abdomen pelvis with IV contrast was done that did not show any urinary or intestinal obstruction or any other obvious acute process. She was given some IV fluid resuscitation, potassium chloride for her hypokalemia. The patient will be admitted to hospital for further evaluation and treatment. - Differential Diagnosis gastroenteritis, colitis, diverticulitis, bowel obstruction Critical Care Time: No Critical care attestation.: If time is entered above; I have spent that time in minutes in the direct care of this critically ill patient, excluding procedure time. ED Disposition Clinical Impression: Hyponatremia, Hypokalemia, Lower abdominal pain Leukocytosis Qualifiers: Leukocytosis type: unspecified Qualified Code(s): D72.829 - Elevated white blood cell count, unspecified Nausea and vomiting Qualifiers: Vomiting type: unspecified Vomiting Intractability: non-intractable Qualified Code(s): R11.2 - Nausea with vomiting, unspecified Disposition: DC-09 OP ADMIT IP TO THIS HOSP Is pt being admited?: Yes Condition: Stable
[2017-04-28] MEDS ORDERED: NACL ONE (00:52)
[2017-04-28] MEDS: KCL 10MEQ/100ML 10 MEQ/100 ML BAG IV SCH ×6 (01:19→13:00)
--- NOTE | 2017-04-28 02:32 | Cat Scan Report ---
FINAL REPORT PROCEDURE: CT ABDOMEN PELVIS W CON TECHNIQUE: Computerized axial tomography of the abdomen and pelvis was performed after the IV injection of iodinated nonionic contrast. HISTORY: abd pain COMPARISON: 11/25/2016 FINDINGS: Visualized lower thorax: Minimal atelectasis bilateral lower lungs. Chronic obstructive pulmonary changes are noted.. Liver: The liver is fatty infiltrated. Spleen: Normal size and attenuation. Gallbladder and biliary system: Normal. Pancreas: The size of the pancreas is normal. There is some dilatation of pancreatic duct.. Adrenals: There is an area of hypoattenuation in the bilateral adrenal glands this measures approximately 1 centimeter, adenoma is suspected.. Kidneys: Both kidneys have normal size. There is a large cyst in the posterior lateral left renal cortex this measures 4 centimeters. Tiny sub centimeter cyst identified in the upper right renal cortex. There is mild prominence of the bilateral collecting systems. This involves the proximal collecting systems is well as the ureters. No obstructing stone or lesion is seen. Nonobstructive uropathy is suspected.. GI tract: The stomach is normal. There is a large fixed hiatal hernia. The small bowel has a normal caliber without obstruction, ileus or enteritis. The cecum, appendix region and colon are normal.. Lymph nodes and mesentery: Normal. Vasculature: Moderate atherosclerosis of the aorta and branching vessels. Bladder: Normal. Reproductive organs: The uterus is absent. No pelvic masses.. Peritoneum: No free fluid. Musculoskeletal structures: No significant abnormality. Other: None. IMPRESSION: There is prominence of the bilateral renal collecting systems, no obstructing stone or lesion is identified. Nonobstructive uropathy is suspected. There is no evidence of intestinal obstruction. No ileus or enteritis. A large hiatal hernia is identified. Fatty infiltration of the liver is noted. Bilateral adrenal adenomas are suspected and unchanged.
--- NOTE | 2017-04-28 02:43 | Admit Criteria Form ---
Admission Criteria Documentation: ABDOMINAL PAIN Clinical Indications for Admission to Inpatient Care (Place 'X' for any and all applicable criteria): Admission is indicated for ANY ONE of the following(1)(2)(3)(4)(5): [X ]I. Inpatient admission required rather than observation care (Also use Abdominal Pain: Observation Care, as appropriate) because of ANY ONE of the following: [ ]a) Severe pain requiring acute inpatient management [ ]b) Identification of etiology/finding that requires inpatient care (eg, aortic dissection, free air) [ ]c) Absent bowel sounds with complete ileus(6) [ ]d) Suspected toxic megacolon [X ]e) Severe electrolyte abnormalities requiring inpatient care [ ]f) High fever or infection requiring inpatient admission as indicated by ANY ONE of following(7)(8): [ ] i) Appropriate outpatient or observational care antimicrobial treatment unavailable, not effective, or not feasible [ ] ii) Documented bacteremia [ ] iii) Temperature > 104.9 degrees F (oral) [ ] iv) T >103.1 F (oral) or < 96.8 F(rectal) that does not respond to all emergency treatment measures [ ]g) Signs of intestinal obstruction [B] [ ]h) Hemodynamic instability [ ]i) IV fluid to replace significant ongoing losses (greater than 3 L/m2 per day) (12)(13) [ ]j) Percutaneous or open drainage (eg, abscess, biliary tract ) procedures [ ]k) Parenteral nutrition regimen that must be implemented on inpatient basis [ ]l) Other condition,treatment or monitoring requiring inpatient admission. [ ]II. Peritoneal signs present [ ]III. Surgery needed that cannot be performed on an ambulatory basis. [ ]IV. Evaluation requires patient to not eat or drink for extended period ( eg, more than 24 hours). [ ]V. Contraindications and/or Inappropriate clinical situations for Observational Care in patients with abdominal pain, when ANY ONE of the following is required: [ ]a) Thorough evaluation is required to prevent catastrophic events due to delays in diagnosing (e.g.Mesenteric ischemia) 1,3 [ ]b) Patient with severe pathology or with chronic symptoms unlikely to improve in the ED stay (3) [ ]. General contraindications and/or Inappropriate clinical situations for Observational Care in patients with abdominal pain, when ANY ONE of the following is required: [ ]a) Prediction of prolongation of LOS based on ANY ONE of the following may be considered as a contraindication for observational care 2, 3, 4, 5, 6, 7, 8, 9, 10, 11 [ ]i) Age > 65 yrs. [ ]ii) Patient arriving by ambulance [ ]iii) Patient with high acuity [ ]iv) Patient requiring vital sign monitoring [ ]v) Patient on IV medication [ ]b) Systolic blood pressures 180mmHg 3,12 [ ]c) Patient with altered mental status including delirium and other alteration of consciousness, (3) [ ]d) Patient whose discharge disposition will be to a half-way home or rehabilitation home should not be managed in Emergency Department Observation Unit. CMS rule requires 3 days hospital stay before such placement.3,13 [ ]e) Patient with failure to thrive due to broad array of etiologies 3,16,17 [ ]f) Inability to ambulate 3,14 Extended stay beyond goal length of stay may be needed for(2)(3): [ ]a) Persistent abdominal pain with suspected intra-abdominal process [ ]b) Diagnosed condition requiring continued stay (e.g., pancreatitis, complicated diverticulitis) [ ]c) Surgery (e.g., colectomy) The original [employer] [facility] content created by [employer] has been revised. The portions of the content which have been revised are identified through the use of italic text or in bold, and [facility] has neither reviewed nor approved the modified material.All other unmodified content is copyright [employer] [facility]. Please see references footnoted in the original [employer] [facility] edition 2016 Admission Criteria Met: Yes
[2017-04-28 02:54] LABS: Bilirubin,Urine NEG (Negative); Blood,Urine MOD (Negative); Ketones,Urine NEG (Negative); Leukocyte Esterase,Urine TR (Negative); Mucus,Urine FEW /HPF; Nitrite,Urine NEG (Negative); Urobilinogen,Urine < 2.0 mg/dL (<2.0)
--- NOTE | 2017-04-28 04:43 | History and Physical Report ---
History of Present Illness Date of examination: 04/28/17 Date of admission: 04/28/17 Chief complaint: Abdominal pain and vomiting for 1 day. History of present illness: 56-year-old female presents to the emergency department from home by EMS with complaint of some mid abdominal pain, nausea, vomiting and diarrhea that started earlier today. She thinks it is due to something that she ate. She says she has vomited about 6-7 times today. She is not taken anything for her symptoms prior to presentation. She has a past medical history of COPD, hypertension, hiatal hernia, previous GI bleed. She has a surgical history of esophagus repair, tonsillectomy, hysterectomy and a prior PEG tube that is no longer there. She has a psychiatric history of schizoaffective disorder and schizophrenia but denies any current hallucinations or suicidal/homicidal ideations. She has a primary care physician but cannot currently remember their name. No recent travel or sick contacts at home. ED Past Medical Hx - Past Medical History Previous Medical History?: Yes Hx Hypertension: Yes Hx Heart Attack/AMI: No Hx Congestive Heart Failure: No Hx Diabetes: No Hx Deep Vein Thrombosis: No Hx Pulmonary Embolism: No Hx Liver Disease: No Hx Renal Disease: No Hx Sickle Cell Disease: No Hx Seizures: No Hx Kidney Stones: No Hx Psychiatric Treatment: Yes (schizoaffective) Hx Asthma: No Hx COPD: Yes Hx Tuberculosis: No Hx HIV: No Additional medical history: hiatal hernia. holes in esophagus. gi bleed-- bleeding ulcers. schizoaffective disorder - Surgical History Hx Coronary Stent: No Hx Open Heart Surgery: No Hx Pacemaker: No Hx Internal Defibrillator: No Hx Cholecystectomy: No Hx Appendectomy: Yes Hx Breast Surgery: No Additional Surgical History: esophagus repair. left foot surgery. tonsilectomy. x 2. hysterectomy. 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 - Social History Smoking Status: Former Smoker - Medications Home Medications: Home Medications Medication Instructions Recorded Confirmed Last Taken Type Ascorbic Acid [Vitamin C] 500 mg PO QDAY 11/24/15 12/03/16 11/23/15 09:00 History Dicyclomine [Bentyl] 10 mg PO QID 11/24/15 12/03/16 11/23/15 22:00 History Ziprasidone HCl [Geodon] 80 mg PO QHS #30 10/17/16 12/03/16 11/23/15 22:00 Rx Losartan [Cozaar] 100 mg PO QDAY #30 tablet 11/29/16 12/03/16 Unknown Rx Mirtazapine [Remeron] 15 mg PO QHS #15 tablet 11/29/16 12/03/16 Unknown Rx Potassium Chloride 20 meq PO QDAY #7 packet 11/29/16 12/03/16 Unknown Rx Ondansetron [Zofran Odt] 4 mg PO Q8H PRN #10 tab.rapdis 12/03/16 Unknown Rx ED Review of Systems ROS: Stated complaint: NAUSEA Other details as noted in HPI Comment: All other systems reviewed and negative Constitutional: denies: chills, fever Eyes: denies: eye pain, eye discharge, vision change ENT: denies: ear pain, throat pain Respiratory: denies: cough, shortness of breath, wheezing Cardiovascular: denies: chest pain, palpitations Gastrointestinal: abdominal pain, nausea, vomiting, diarrhea Genitourinary: denies: urgency, dysuria, discharge Musculoskeletal: denies: back pain, joint swelling, arthralgia Skin: denies: rash, lesions Neurological: denies: headache, weakness, paresthesias Medications and Allergies Allergies Allergy/AdvReac Type Severity Reaction Status Date / Time aspirin AdvReac Bleeding Verified 10/14/16 03:11 ibuprofen AdvReac Bleeding Verified 10/14/16 03:11 Home Medications Medication Instructions Recorded Confirmed Last Taken Type Ascorbic Acid [Vitamin C] 500 mg PO QDAY 11/24/15 12/03/16 11/23/15 09:00 History Dicyclomine [Bentyl] 10 mg PO QID 11/24/15 12/03/16 11/23/15 22:00 History Ziprasidone HCl [Geodon] 80 mg PO QHS #30 10/17/16 12/03/16 11/23/15 22:00 Rx Losartan [Cozaar] 100 mg PO QDAY #30 tablet 11/29/16 12/03/16 Unknown Rx Mirtazapine [Remeron] 15 mg PO QHS #15 tablet 11/29/16 12/03/16 Unknown Rx Potassium Chloride 20 meq PO QDAY #7 packet 11/29/16 12/03/16 Unknown Rx Ondansetron [Zofran Odt] 4 mg PO Q8H PRN #10 tab.alexandrodis 12/03/16 Unknown Rx Review of Systems All systems: negative Gastrointestinal: abdominal pain, nausea, vomiting, diarrhea Exam - Physical Exam Narrative exam: Middle aged female lyimg in bed in some disress sec to nausea and pain - Constitutional Vitals: Temp Pulse Resp BP Pulse Ox 98 F 70 18 168/74 96 04/28/17 01:27 04/28/17 01:27 04/28/17 01:27 04/28/17 01:27 04/28/17 01:27 General appearance: Present: mild distress, well-nourished, disheveled - EENT Eyes: Present: PERRL ENT: hearing intact, clear oral mucosa - Neck Neck: Present: supple, normal ROM - Respiratory Respiratory effort: normal Respiratory: bilateral: CTA - Cardiovascular Heart rate: 76 Rhythm: regular Heart Sounds: Present: S1 & S2. Absent: rub, click - Extremities Extremities: pulses symmetrical, No edema Peripheral Pulses: within normal limits - Abdominal General gastrointestinal: Present: soft, tender (no guarding no rigidity.), non- distended, normal bowel sounds Localized gastrointestinal: tender: diffuse Female genitourinary: Present: normal - Rectal Rectal Exam: normal exam-external/orifice, normal rectal tone - Integumentary Integumentary: Present: clear, warm, dry - Musculoskeletal Musculoskeletal: gait normal, strength equal bilaterally - Psychiatric Psychiatric: appropriate mood/affect, intact judgment & insight - Neurologic Neurologic: CNII-XII intact, moves all extremities - Allied Health Allied health notes reviewed: nursing, case management Results - Labs CBC & Chem 7: 04/27/17 22:43 04/27/17 22:43 Labs: Laboratory Last Values WBC 18.6 K/mm3 (4.5-11.0) H 04/27/17 22:43 RBC 4.65 M/mm3 (3.65-5.03) 04/27/17 22:43 Hgb 13.1 gm/dl (10.1-14.3) 04/27/17 22:43 Hct 37.5 % (30.3-42.9) 04/27/17 22:43 MCV 81 fl (79-97) 04/27/17 22:43 MCH 28 pg (28-32) 04/27/17 22:43 MCHC 35 % (30-34) H 04/27/17 22:43 RDW 15.0 % (13.2-15.2) 04/27/17 22:43 Plt Count 410 K/mm3 (140-440) 04/27/17 22:43 Lymph % (Auto) 5.9 % (13.4-35.0) L 04/27/17 22:43 [place] % (Auto) 7.0 % (0.0-7.3) 04/27/17 22:43 Eos % (Auto) 0.0 % (0.0-4.3) 04/27/17 22:43 Baso % (Auto) 0.0 % (0.0-1.8) 04/27/17 22:43 Lymph # 1.1 K/mm3 (1.2-5.4) L 04/27/17 22:43 [place] # 1.3 K/mm3 (0.0-0.8) H 04/27/17 22:43 Eos # 0.0 K/mm3 (0.0-0.4) 04/27/17 22:43 Baso # 0.0 K/mm3 (0.0-0.1) 04/27/17 22:43 Seg Neutrophils % 87.1 % (40.0-70.0) H 04/27/17 22:43 Seg Neutrophils # 16.2 K/mm3 (1.8-7.7) H 04/27/17 22:43 Sodium 122 mmol/L (137-145) L 04/27/17 22:43 Potassium 2.8 mmol/L (3.6-5.0) L* 04/27/17 22:43 Chloride 72.2 mmol/L (98-107) L 04/27/17 22:43 Carbon Dioxide 33 mmol/L (22-30) H 04/27/17 22:43 Anion Gap 20 mmol/L 04/27/17 22:43 BUN 13 mg/dL (7-17) 04/27/17 22:43 Creatinine 0.5 mg/dL (0.7-1.2) L 04/27/17 22:43 Estimated GFR > 60 ml/min 04/27/17 22:43 BUN/Creatinine Ratio 26.00 % 04/27/17 22:43 Glucose 117 mg/dL (65-100) H 04/27/17 22:43 Calcium 10.0 mg/dL (8.4-10.2) 04/27/17 22:43 Total Bilirubin 0.80 mg/dL (0.1-1.2) 04/27/17 22:43 AST 41 units/L (5-40) H 04/27/17 22:43 ALT 15 units/L (7-56) 04/27/17 22:43 Alkaline Phosphatase 160 units/L (35-129) H 04/27/17 22:43 Total Protein 7.3 g/dL (6.3-8.2) 04/27/17 22:43 Albumin 4.4 g/dL (3.9-5) 04/27/17 22:43 Albumin/Globulin Ratio 1.5 % 04/27/17 22:43 Lipase 23 units/L (13-60) 04/27/17 22:43 Urine Color Yellow (Yellow) 04/28/17 Unknown Urine Turbidity Clear (Clear) 04/28/17 Unknown Urine pH 7.0 (5.0-7.0) 04/28/17 Unknown Ur Specific [place] 1.009 (1.003-1.030) 04/28/17 Unknown Urine Protein 30 mg/dl mg/dL (Negative) 04/28/17 Unknown Urine Glucose (UA) Neg mg/dL (Negative) 04/28/17 Unknown Urine Ketones Neg mg/dL (Negative) 04/28/17 Unknown Urine Blood Mod (Negative) 04/28/17 Unknown Urine Nitrite Neg (Negative) 04/28/17 Unknown Urine Bilirubin Neg (Negative) 04/28/17 Unknown Urine Urobilinogen < 2.0 mg/dL (<2.0) 04/28/17 Unknown Ur Leukocyte Esterase Tr (Negative) 04/28/17 Unknown Urine WBC (Auto) 1.0 /HPF (0.0-6.0) 04/28/17 Unknown Urine RBC (Auto) 3.0 /HPF (0.0-6.0) 04/28/17 Unknown U Epithel Cells (Auto) 1.0 /HPF (0-13.0) 04/28/17 Unknown Urine Mucus Few /HPF 04/28/17 Unknown Short CBC 04/27/17 Range/Units 22:43 WBC 18.6 H (4.5-11.0) K/mm3 Hgb 13.1 (10.1-14.3) gm/dl Hct 37.5 (30.3-42.9) % Plt Count 410 (140-440) K/mm3 BMP 04/27/17 22:43 Sodium 122 L Potassium 2.8 L* Chloride 72.2 L Carbon Dioxide 33 H BUN 13 Creatinine 0.5 L Glucose 117 H Calcium 10.0 Liver Function 04/27/17 Range/Units 22:43 Total Bilirubin 0.80 (0.1-1.2) mg/dL AST 41 H (5-40) units/L ALT 15 (7-56) units/L Alkaline Phosphatase 160 H (35-129) units/L Albumin 4.4 (3.9-5) g/dL Urine 04/28/17 Range/Units Unknown Urine Color Yellow (Yellow) Urine pH 7.0 (5.0-7.0) Ur Specific [place] 1.009 (1.003-1.030) Urine Protein 30 mg/dl (Negative) mg/dL Urine Glucose (UA) Neg (Negative) mg/dL - Imaging and Cardiology CT scan - abdomen: report reviewed (final impression: Prominence of bilateral renal collecting systems: No obstructing stone or lesion is identified. Nonobstructive uropathy is suspected . No evidence of intestinal obstruction. No ileus or enteritis ) Assessment and Plan Advance Directives: Yes VTE prophylaxis?: Chemical Plan of care discussed with patient/family: Yes - Patient Problems (1) Colitis Current Visit: Yes Status: Acute Plan to address problem: Infectious colitis is suspected. White count is high. CT abdomen was unremarkable. Will treat with Zosyn for 24-48 hours and change to PO antibiotics. Leukocytosis may be stress-induced. No source of infection identified. Urine is negative. (2) Volume depletion Current Visit: No Status: Acute Plan to address problem: IV fluids because patient is volume depleted. 3% saline initiated at 40 milliliters per hour for about 12 hours. Also D5 normal saline at 100 mL per hour for the next 24 hours. (3) Hypokalemia Onset Date: 07/28/13 Current Visit: No Status: Acute Plan to address problem: Supplemented (4) Hyponatremia Current Visit: No Status: Acute Plan to address problem: Discontinue Hydrochlorothiazide. 3% saline initiated. Hyponatremia secondary to vomiting diarrhea and hydrochlorothiazide. Zofran IV 4 mg every 3 hours initiated. (5) Gastritis Current Visit: Yes Status: Acute Qualifiers: Gastritis type: unspecified gastritis Chronicity: acute Gastritis bleeding: G Plan to address problem: Protonix 40 mg IV every 12 hours initiated. (6) Hypertension Current Visit: Yes Status: Chronic Qualifiers: Hypertension type: essential hypertension Qualified Code(s): I10 - Essential (primary) hypertension Plan to address problem: Continue.Losartan.Discontinue hydrochlorothiazide. (7) DVT prophylaxis Current Visit: No Status: Acute Plan to address problem: Lovenox 40 mg subcutaneous daily
[2017-04-28] MEDS ORDERED: DULCOLAX PR PRN (05:04)
[2017-04-28] MEDS ORDERED: MILK OF MAGNESIA PO PRN (05:04)
[2017-04-28] MEDS ORDERED: TYLENOL PO PRN (05:04)
[2017-04-28] MEDS ORDERED: NACL 3% 500 ML IV ONE (05:07)
[2017-04-28] MEDS: ZOSYN/NS 4.5GM/100ML 4.5 GM/100 ML VIAL IV SCH ×3 (06:12→21:47)
[2017-04-28] MEDS: K-DUR PO SCH ×3 (06:13→15:36)
[2017-04-28 06:44] LABS: Chloride 83.9 mmol/L (98-107)
[2017-04-28] MEDS: DILAUDID IV PRN ×4 (06:51→20:43)
[2017-04-28 06:54] LABS: Potassium 2.6 mmol/L (3.6-5.0)
[2017-04-28] MEDS: ZOFRAN IV PRN ×3 (06:54→16:25)
[2017-04-28] MEDS: PROTONIX IV SCH ×2 (10:15→21:48)
[2017-04-28] MEDS: COZAAR PO SCH (10:15)
[2017-04-28] MEDS: POTASSIUM CHLORIDE PO SCH (10:15)
[2017-04-28] MEDS: LOVENOX SUB-Q SCH (10:18)
[2017-04-28 14:45] LABS: Magnesium 1.9 mg/dL (1.7-2.3)
[2017-04-28] MEDS: D5NS 1,000 ML IV SCH ×2 (15:21→16:26)
--- NOTE | 2017-04-28 16:07 | Event Note ---
Date: 04/28/17 Patient was admitted this morning with intractable nausea vomiting, severe hypokalemia On placement protocol, patient feels better no new complaints Medical records reviewed, agreed with the current management Closely monitor electrolytes, supportive care Plan of care discussed with the patient and the nurse
[2017-04-28] MEDS: GEODON PO SCH (21:50)
[2017-04-28] MEDS ORDERED: NON-FORMULARY (Ziprasidone Hcl [Geodon] 80 MG) PO SCH (22:00)
[2017-04-29] MEDS: DILAUDID IV PRN ×5 (05:17→22:02)
[2017-04-29] MEDS: ZOSYN/NS 4.5GM/100ML 4.5 GM/100 ML VIAL IV SCH ×3 (05:54→22:02)
[2017-04-29 07:50] LABS: Basophils % (Auto) 1.2 % (0.0-1.8); Eosinophils % (Auto) 5.4 % (0.0-4.3); Hematocrit 33.7 % (30.3-42.9); Hemoglobin 11.1 gm/dl (10.1-14.3); Mean Corpuscular HGB Conc 33 % (30-34); Mean Corpuscular Hemoglobin 29 pg (28-32); Mean Corpuscular Volume 87 fl (79-97); Platelet Count 267 K/mm3 (140-440); Red Blood Count 3.88 M/mm3 (3.65-5.03); Red Cell Distribution Width 15.7 % (13.2-15.2); White Blood Count 6.6 K/mm3 (4.5-11.0)
[2017-04-29 07:51] LABS: Alanine Aminotransferase 11 units/L (7-56); Albumin 3.1 g/dL (3.9-5); Albumin/Globulin Ratio 1.2 %; Alkaline Phosphatase 106 units/L (35-129); Anion Gap 14 mmol/L; Blood Urea Nitrogen 8 mg/dL (7-17); Calcium 8.3 mg/dL (8.4-10.2); Carbon Dioxide 27 mmol/L (22-30); Chloride 96.9 mmol/L (98-107); Glucose 85 mg/dL (65-100); Potassium 3.5 mmol/L (3.6-5.0); Sodium 134 mmol/L (137-145); Total Protein 5.6 g/dL (6.3-8.2)
[2017-04-29] MEDS: POTASSIUM CHLORIDE PO SCH (08:59)
[2017-04-29] MEDS ORDERED: K-DUR PO ONE (09:00)
[2017-04-29] MEDS: COZAAR PO SCH (10:13)
[2017-04-29] MEDS: D5NS 1,000 ML IV SCH ×2 (10:14→22:13)
[2017-04-29] MEDS: LOVENOX SUB-Q SCH (10:14)
[2017-04-29] MEDS: PROTONIX PO SCH ×2 (10:14→22:03)
--- NOTE | 2017-04-29 10:23 | Consultation ---
History of Present Illness Consult date: 04/29/17 Consult reason: bradycardia History of present illness: This is a 56yr old woman who presented with abdominal pain associated with nausea, vomiting and diarrhea. Cardiac consultation requested for sinus bradycardia noted on vital signs. An ECG shows marked sinus bradycardia, rate at 45. Patient denies chest pain and shortness of breath. She denies dizziness. There was no syncope. Initial labs most notable for a severe hyponatremia with a sodium of 122 and and severe hypokalemia with a potassium of 2.2. She also had an elevated WBC of 18.6 but has remained afebrile. Medications and Allergies Allergies Allergy/AdvReac Type Severity Reaction Status Date / Time aspirin AdvReac Bleeding Verified 10/14/16 03:11 ibuprofen AdvReac Bleeding Verified 10/14/16 03:11 Home Medications Medication Instructions Recorded Confirmed Last Taken Type Ascorbic Acid [Vitamin C] 500 mg PO QDAY 11/24/15 12/03/16 11/23/15 09:00 History Dicyclomine [Bentyl] 10 mg PO QID 11/24/15 12/03/16 11/23/15 22:00 History Ziprasidone HCl [Geodon] 80 mg PO QHS #30 10/17/16 12/03/16 11/23/15 22:00 Rx Losartan [Cozaar] 100 mg PO QDAY #30 tablet 11/29/16 12/03/16 Unknown Rx Mirtazapine [Remeron] 15 mg PO QHS #15 tablet 11/29/16 12/03/16 Unknown Rx Potassium Chloride 20 meq PO QDAY #7 packet 11/29/16 12/03/16 Unknown Rx Ondansetron [Zofran Odt] 4 mg PO Q8H PRN #10 tab.rapdis 12/03/16 Unknown Rx Active Meds: Active Medications Acetaminophen (Tylenol) 650 mg PO Q4H PRN PRN Reason: Pain MILD(1-3)/Fever >100.5/HWANG Bisacodyl (Dulcolax) 10 mg MD QDAY PRN PRN Reason: Constipation unrelieved by MOM Enoxaparin Sodium (Lovenox) 40 mg SUB-Q QDAY ANTONELLA Last Admin: 04/29/17 10:14 Dose: 40 mg Hydromorphone HCl (Dilaudid) 0.5 mg IV Q3H PRN PRN Reason: Pain , Severe (7-10) Last Admin: 04/29/17 05:17 Dose: 0.5 mg Dextrose/Sodium Chloride (D5ns) 1,000 mls @ 100 mls/hr IV DIRECT [facility] Last Admin: 04/29/17 10:14 Dose: 100 mls/hr Piperacillin Sod/Tazobactam Sod (Zosyn/Ns 4.5gm/100ml) 4.5 gm in 100 mls @ 200 mls/hr IV Q8HR [facility] PRN Reason: Protocol Last Admin: 04/29/17 05:54 Dose: 200 mls/hr Losartan Potassium (Cozaar) 100 mg PO QDAY [facility] Last Admin: 04/29/17 10:13 Dose: 100 mg Magnesium Hydroxide (Milk Of Magnesia) 30 ml PO Q4H PRN PRN Reason: Constipation Ondansetron HCl (Zofran) 4 mg IV Q3H PRN PRN Reason: N/V unrelieved by Reglan Last Admin: 04/28/17 16:25 Dose: 4 mg Pantoprazole Sodium (Protonix) 40 mg PO BID [facility] Last Admin: 04/29/17 10:14 Dose: 40 mg Potassium Chloride (Potassium Chloride) 20 meq PO QDAY [facility] Last Admin: 04/29/17 08:59 Dose: 20 meq Ziprasidone (Geodon) 80 mg PO QHS [facility] Last Admin: 04/28/17 21:50 Dose: 80 mg Physical Examination Vital Signs Temp Pulse Resp BP Pulse Ox 98.6 F 91 H 20 178/100 97 04/27/17 22:16 04/27/17 22:16 04/27/17 22:16 04/27/17 22:16 04/27/17 22:16 General appearance: no acute distress HEENT: Positive: PERRL Neck: Positive: trachea midline Cardiac: Positive: Reg Rate and Rhythm Lungs: Positive: Decreased Breath Sounds Results 04/29/17 06:33 04/29/17 06:33 Cardiac Enzymes 04/29/17 Range/Units 06:33 AST 26 (5-40) units/L CBC 04/29/17 Range/Units 06:33 WBC 6.6 (4.5-11.0) K/mm3 RBC 3.88 (3.65-5.03) M/mm3 Hgb 11.1 (10.1-14.3) gm/dl Hct 33.7 (30.3-42.9) % Plt Count 267 (140-440) K/mm3 Lymph # 1.0 L (1.2-5.4) K/mm3 [place] # 0.6 (0.0-0.8) K/mm3 Eos # 0.4 (0.0-0.4) K/mm3 Baso # 0.1 (0.0-0.1) K/mm3 Comprehensive Metabolic Panel 04/28/17 04/29/17 Range/Units 14:07 06:33 Sodium 134 L (137-145) mmol/L Potassium 4.0 D 3.5 L (3.6-5.0) mmol/L Chloride 96.9 L (98-107) mmol/L Carbon Dioxide 27 (22-30) mmol/L BUN 8 (7-17) mg/dL Creatinine 0.5 L (0.7-1.2) mg/dL Glucose 85 (65-100) mg/dL Calcium 8.3 L D (8.4-10.2) mg/dL AST 26 (5-40) units/L ALT 11 (7-56) units/L Alkaline Phosphatase 106 (35-129) units/L Total Protein 5.6 L D (6.3-8.2) g/dL Albumin 3.1 L (3.9-5) g/dL Assessment and Plan Abdominal pain with nausea vomiting and diarrhea Hyponatremia Hypokalemia Leukocytosis Sinus bradycardia likely s/t to hypokalemia Recommendations: Replete potassium and maintain potassium greater than 4. Check a TSH. Echocardiogram for LVEF assessment. Continue telemetry monitoring.
[2017-04-29] MEDS: ZOFRAN IV PRN ×2 (10:27→13:28)
--- NOTE | 2017-04-29 17:56 | Progress Note ---
Assessment and Plan Assessment and plan: --Acute colitis; improved, supportive care soft diet and advance as tolerated --Hypokalemia; significantly improved, replace per protocol and monitor levels --Bradycardia; check thyroid function tests, cardiology evaluated the patient, echocardiogram --Hyponatremia; corrected, closely monitor electrolytes --Hypertension well controlled; continue current antihypertensive medications and when necessary hydralazine --Acute gastritis ; IV Protonix, IV fluids and supportive care Cardiology evaluation noted and appreciated Closely monitor the patient and just management as needed History Interval history: Patient seen and evaluated medical records reviewed Patient has no nausea vomiting, potassium levels significantly improved Patient also has bradycardia, cardiology evaluation pending Alert awake oriented 3 not in acute distress Vital signs reviewed Hospitalist Physical - Constitutional Vitals: Temp Pulse Resp BP Pulse Ox 97.9 F 52 L 19 172/73 97 04/29/17 16:00 04/29/17 16:00 04/29/17 16:00 04/29/17 16:00 04/29/17 07:00 General appearance: Present: no acute distress, cachectic, other (thin built) - EENT Eyes: Present: PERRL, EOM intact - Neck Neck: Present: supple, normal ROM - Respiratory Respiratory effort: normal Respiratory: negative: rales, rhonchi, wheezing - Cardiovascular Rhythm: regular Heart Sounds: Present: S1 & S2 - Extremities Extremities: no ischemia, pulses intact, pulses symmetrical Peripheral Pulses: within normal limits - Abdominal General gastrointestinal: soft, non-tender, non-distended, normal bowel sounds - Integumentary Integumentary: Present: clear, warm - Psychiatric Psychiatric: appropriate mood/affect, cooperative - Neurologic Neurologic: CNII-XII intact, moves all extremities Results - Labs CBC & Chem 7: 04/29/17 06:33 04/29/17 06:33 Labs: Laboratory Last Values WBC 6.6 K/mm3 (4.5-11.0) 04/29/17 06:33 RBC 3.88 M/mm3 (3.65-5.03) 04/29/17 06:33 Hgb 11.1 gm/dl (10.1-14.3) 04/29/17 06:33 Hct 33.7 % (30.3-42.9) 04/29/17 06:33 MCV 87 fl (79-97) D 04/29/17 06:33 MCH 29 pg (28-32) 04/29/17 06:33 MCHC 33 % (30-34) 04/29/17 06:33 RDW 15.7 % (13.2-15.2) H 04/29/17 06:33 Plt Count 267 K/mm3 (140-440) 04/29/17 06:33 Lymph % (Auto) 15.3 % (13.4-35.0) 04/29/17 06:33 [place] % (Auto) 9.5 % (0.0-7.3) H 04/29/17 06:33 Eos % (Auto) 5.4 % (0.0-4.3) H 04/29/17 06:33 Baso % (Auto) 1.2 % (0.0-1.8) 04/29/17 06:33 Lymph # 1.0 K/mm3 (1.2-5.4) L 04/29/17 06:33 [place] # 0.6 K/mm3 (0.0-0.8) 04/29/17 06:33 Eos # 0.4 K/mm3 (0.0-0.4) 04/29/17 06:33 Baso # 0.1 K/mm3 (0.0-0.1) 04/29/17 06:33 Seg Neutrophils % 68.6 % (40.0-70.0) 04/29/17 06:33 Seg Neutrophils # 4.5 K/mm3 (1.8-7.7) 04/29/17 06:33 Sodium 134 mmol/L (137-145) L 04/29/17 06:33 Potassium 3.5 mmol/L (3.6-5.0) L 04/29/17 06:33 Chloride 96.9 mmol/L (98-107) L 04/29/17 06:33 Carbon Dioxide 27 mmol/L (22-30) 04/29/17 06:33 Anion Gap 14 mmol/L 04/29/17 06:33 BUN 8 mg/dL (7-17) 04/29/17 06:33 Creatinine 0.5 mg/dL (0.7-1.2) L 04/29/17 06:33 Estimated GFR > 60 ml/min 04/29/17 06:33 BUN/Creatinine Ratio 16.00 % 04/29/17 06:33 Glucose 85 mg/dL (65-100) 04/29/17 06:33 Calcium 8.3 mg/dL (8.4-10.2) L D 04/29/17 06:33 Magnesium 1.90 mg/dL (1.7-2.3) 04/28/17 14:07 Total Bilirubin 0.40 mg/dL (0.1-1.2) 04/29/17 06:33 AST 26 units/L (5-40) 04/29/17 06:33 ALT 11 units/L (7-56) 04/29/17 06:33 Alkaline Phosphatase 106 units/L (35-129) 04/29/17 06:33 Total Protein 5.6 g/dL (6.3-8.2) L D 04/29/17 06:33 Albumin 3.1 g/dL (3.9-5) L 04/29/17 06:33 Albumin/Globulin Ratio 1.2 % 04/29/17 06:33 Lipase 23 units/L (13-60) 04/27/17 22:43 Urine Color Yellow (Yellow) 04/28/17 Unknown Urine Turbidity Clear (Clear) 04/28/17 Unknown Urine pH 7.0 (5.0-7.0) 04/28/17 Unknown Ur Specific [place] 1.009 (1.003-1.030) 04/28/17 Unknown Urine Protein 30 mg/dl mg/dL (Negative) 04/28/17 Unknown Urine Glucose (UA) Neg mg/dL (Negative) 04/28/17 Unknown Urine Ketones Neg mg/dL (Negative) 04/28/17 Unknown Urine Blood Mod (Negative) 04/28/17 Unknown Urine Nitrite Neg (Negative) 04/28/17 Unknown Urine Bilirubin Neg (Negative) 04/28/17 Unknown Urine Urobilinogen < 2.0 mg/dL (<2.0) 04/28/17 Unknown Ur Leukocyte Esterase Tr (Negative) 04/28/17 Unknown Urine WBC (Auto) 1.0 /HPF (0.0-6.0) 04/28/17 Unknown Urine RBC (Auto) 3.0 /HPF (0.0-6.0) 04/28/17 Unknown U Epithel Cells (Auto) 1.0 /HPF (0-13.0) 04/28/17 Unknown Urine Mucus Few /HPF 04/28/17 Unknown
[2017-04-29] MEDS: GEODON PO SCH (22:01)
[2017-04-30] MEDS: DILAUDID IV PRN ×5 (05:03→22:21)
[2017-04-30] MEDS: ZOSYN/NS 4.5GM/100ML 4.5 GM/100 ML VIAL IV SCH ×3 (05:11→23:33)
[2017-04-30 05:51] LABS: Anion Gap 13 mmol/L; BUN/Creatinine Ratio 6.66; Blood Urea Nitrogen 4 mg/dL (7-17); Calcium 8.8 mg/dL (8.4-10.2); Carbon Dioxide 31 mmol/L (22-30); Chloride 99.2 mmol/L (98-107); Glucose 82 mg/dL (65-100); Potassium 3.4 mmol/L (3.6-5.0); Sodium 140 mmol/L (137-145)
[2017-04-30] MEDS ORDERED: K-DUR PO ONE (08:00)
[2017-04-30] MEDS: POTASSIUM CHLORIDE PO SCH ×2 (09:34→22:20)
[2017-04-30] MEDS: LOVENOX SUB-Q SCH (09:34)
[2017-04-30] MEDS: PROTONIX PO SCH ×2 (09:34→22:20)
[2017-04-30] MEDS: COZAAR PO SCH (09:35)
--- NOTE | 2017-04-30 10:09 | Progress Note ---
Assessment and Plan Abdominal pain with nausea vomiting and diarrhea Hyponatremia Hypokalemia Leukocytosis Hypertension -uncontrolled Hx of Schizophrenia Sinus bradycardia, asymptomatic may be vasodepressor in origin TSH 2.5 Echo done 11/2016 shows a normal LV systolic function, EF 55-60%. Recommendations: Hypokalemia should be aggressively repleted, maintain a level between 3.6 and 4.0. Optimal BP management. Subjective Date of service: 04/30/17 Interval history: Patient still with complaints of abdominal pain. She denies chest pain and shortness of breath. No reported events on telemetry overnight. Objective Vital Signs Temp Pulse Resp BP BP Pulse Ox 04/30/17 09:35 182/84 04/30/17 07:27 98.8 F 58 L 16 182/74 98 04/30/17 05:03 18 04/30/17 03:59 98.0 F 54 L 18 128/73 97 04/29/17 23:58 98.2 F 60 18 141/70 98 04/29/17 22:02 18 04/29/17 22:00 52 L 18 04/29/17 20:00 98.6 F 56 L 18 156/82 99 04/29/17 16:00 97.9 F 52 L 19 172/73 04/29/17 11:59 97.6 F 54 L 18 180/77 04/29/17 10:13 130/72 - Physical Examination General: No Apparent Distress HEENT: Positive: PERRL Neck: Positive: trachea midline Cardiac: Positive: Reg Rate and Rhythm - Labs and Meds Comprehensive Metabolic Panel 04/30/17 Range/Units 05:11 Sodium 140 (137-145) mmol/L Potassium 3.4 L (3.6-5.0) mmol/L Chloride 99.2 (98-107) mmol/L Carbon Dioxide 31 H (22-30) mmol/L BUN 4 L (7-17) mg/dL Creatinine 0.6 L (0.7-1.2) mg/dL Glucose 82 (65-100) mg/dL Calcium 8.8 (8.4-10.2) mg/dL
[2017-04-30] MEDS: D5NS 1,000 ML IV SCH ×2 (11:23→22:22)
--- NOTE | 2017-04-30 14:03 | Event Note ---
Date: 04/30/17 Had an episode of SVT, heart rate ranging between 150s to 160s, received adenosine 6 mg IV, converted to sinus rhythm Heart rate between 80s to 90s, throughout the episode patient did not have any chest pain or shortness of breath Patient was alert awake oriented 3, vital signs were stable, cardiology VENEER TAPING MACHINE OPERATOR was at the bedside, paperboard machine operator aware Patient will be transferred to telemetry for close observation, low-dose long- acting beta blockers added per cardiology
[2017-04-30] MEDS ORDERED: TOPROL XL PO SCH (15:00)
--- NOTE | 2017-04-30 19:17 | Progress Note ---
Assessment and Plan Assessment and plan: --Hypokalemia; significantly improved, replace per protocol and monitor levels --Acute colitis; no new episodes of diarrhea ,soft diet and advance as tolerated --Bradycardia; check thyroid function tests, cardiology following, follow echocardiogram --Hyponatremia; corrected, closely monitor electrolytes --Hypertension well controlled; continue current antihypertensive medications and when necessary hydralazine --Acute gastritis ; IV Protonix, IV fluids and supportive care Physical therapy, ambulate as tolerated, discharge if cleared by cardiology History Interval history: Patient seen and evaluated in her room this morning medical records reviewed Patient is eating breakfast, no new complaints Alert awake responding appropriately, vital signs stable Hospitalist Physical - Constitutional Vitals: Temp Pulse Resp BP Pulse Ox 98.0 F 64 20 113/60 100 04/30/17 15:19 04/30/17 15:19 04/30/17 15:19 04/30/17 15:19 04/30/17 15:19 General appearance: Present: no acute distress, cachectic, other (thin built) - EENT Eyes: Present: PERRL, EOM intact - Neck Neck: Present: supple, normal ROM - Respiratory Respiratory effort: normal Respiratory: negative: rales, rhonchi, wheezing - Cardiovascular Rhythm: regular Heart Sounds: Present: S1 & S2 - Extremities Extremities: no ischemia, pulses intact, pulses symmetrical Peripheral Pulses: within normal limits - Abdominal General gastrointestinal: soft, non-tender, non-distended, normal bowel sounds - Integumentary Integumentary: Present: clear, warm - Psychiatric Psychiatric: appropriate mood/affect, cooperative - Neurologic Neurologic: CNII-XII intact, moves all extremities Results - Labs CBC & Chem 7: 04/29/17 06:33 04/30/17 05:11 Labs: Laboratory Last Values WBC 6.6 K/mm3 (4.5-11.0) 04/29/17 06:33 RBC 3.88 M/mm3 (3.65-5.03) 04/29/17 06:33 Hgb 11.1 gm/dl (10.1-14.3) 04/29/17 06:33 Hct 33.7 % (30.3-42.9) 04/29/17 06:33 MCV 87 fl (79-97) D 04/29/17 06:33 MCH 29 pg (28-32) 04/29/17 06:33 MCHC 33 % (30-34) 04/29/17 06:33 RDW 15.7 % (13.2-15.2) H 04/29/17 06:33 Plt Count 267 K/mm3 (140-440) 04/29/17 06:33 Lymph % (Auto) 15.3 % (13.4-35.0) 04/29/17 06:33 [place] % (Auto) 9.5 % (0.0-7.3) H 04/29/17 06:33 Eos % (Auto) 5.4 % (0.0-4.3) H 04/29/17 06:33 Baso % (Auto) 1.2 % (0.0-1.8) 04/29/17 06:33 Lymph # 1.0 K/mm3 (1.2-5.4) L 04/29/17 06:33 [place] # 0.6 K/mm3 (0.0-0.8) 04/29/17 06:33 Eos # 0.4 K/mm3 (0.0-0.4) 04/29/17 06:33 Baso # 0.1 K/mm3 (0.0-0.1) 04/29/17 06:33 Seg Neutrophils % 68.6 % (40.0-70.0) 04/29/17 06:33 Seg Neutrophils # 4.5 K/mm3 (1.8-7.7) 04/29/17 06:33 Sodium 140 mmol/L (137-145) 04/30/17 05:11 Potassium 3.4 mmol/L (3.6-5.0) L 04/30/17 05:11 Chloride 99.2 mmol/L (98-107) 04/30/17 05:11 Carbon Dioxide 31 mmol/L (22-30) H 04/30/17 05:11 Anion Gap 13 mmol/L 04/30/17 05:11 BUN 4 mg/dL (7-17) L 04/30/17 05:11 Creatinine 0.6 mg/dL (0.7-1.2) L 04/30/17 05:11 Estimated GFR > 60 ml/min 04/30/17 05:11 BUN/Creatinine Ratio 6.66 % 04/30/17 05:11 Glucose 82 mg/dL (65-100) 04/30/17 05:11 POC Glucose 174 (70-105) H 04/30/17 13:39 Calcium 8.8 mg/dL (8.4-10.2) 04/30/17 05:11 Magnesium 1.90 mg/dL (1.7-2.3) 04/28/17 14:07 Total Bilirubin 0.40 mg/dL (0.1-1.2) 04/29/17 06:33 AST 26 units/L (5-40) 04/29/17 06:33 ALT 11 units/L (7-56) 04/29/17 06:33 Alkaline Phosphatase 106 units/L (35-129) 04/29/17 06:33 Total Protein 5.6 g/dL (6.3-8.2) L D 04/29/17 06:33 Albumin 3.1 g/dL (3.9-5) L 04/29/17 06:33 Albumin/Globulin Ratio 1.2 % 04/29/17 06:33 Lipase 23 units/L (13-60) 04/27/17 22:43 TSH 2.540 mlU/mL (0.270-4.200) 04/30/17 05:11 Free T4 1.72 ng/dL (0.76-1.46) H 04/30/17 05:11 Urine Color Yellow (Yellow) 04/28/17 Unknown Urine Turbidity Clear (Clear) 04/28/17 Unknown Urine pH 7.0 (5.0-7.0) 04/28/17 Unknown Ur Specific [place] 1.009 (1.003-1.030) 04/28/17 Unknown Urine Protein 30 mg/dl mg/dL (Negative) 04/28/17 Unknown Urine Glucose (UA) Neg mg/dL (Negative) 04/28/17 Unknown Urine Ketones Neg mg/dL (Negative) 04/28/17 Unknown Urine Blood Mod (Negative) 04/28/17 Unknown Urine Nitrite Neg (Negative) 04/28/17 Unknown Urine Bilirubin Neg (Negative) 04/28/17 Unknown Urine Urobilinogen < 2.0 mg/dL (<2.0) 04/28/17 Unknown Ur Leukocyte Esterase Tr (Negative) 04/28/17 Unknown Urine WBC (Auto) 1.0 /HPF (0.0-6.0) 04/28/17 Unknown Urine RBC (Auto) 3.0 /HPF (0.0-6.0) 04/28/17 Unknown U Epithel Cells (Auto) 1.0 /HPF (0-13.0) 04/28/17 Unknown Urine Mucus Few /HPF 04/28/17 Unknown
[2017-04-30] MEDS: GEODON PO SCH (23:32)
[2017-05-01] MEDS: DILAUDID IV PRN ×5 (02:52→22:03)
[2017-05-01] MEDS ORDERED: APRESOLINE IV PRN (05:47)
[2017-05-01] MEDS: ZOSYN/NS 4.5GM/100ML 4.5 GM/100 ML VIAL IV SCH (06:10)
[2017-05-01 06:30] LABS: Anion Gap 15 mmol/L; Blood Urea Nitrogen 3 mg/dL (7-17); Calcium 9.2 mg/dL (8.4-10.2); Carbon Dioxide 30 mmol/L (22-30); Chloride 96.6 mmol/L (98-107); Glucose 92 mg/dL (65-100); Sodium 138 mmol/L (137-145)
[2017-05-01] MEDS: D5NS 1,000 ML IV SCH (10:22)
[2017-05-01] MEDS: POTASSIUM CHLORIDE PO SCH (10:30)
[2017-05-01] MEDS: TOPROL XL PO SCH (10:31)
[2017-05-01] MEDS: COZAAR PO SCH (10:32)
[2017-05-01] MEDS: LOVENOX SUB-Q SCH (10:32)
[2017-05-01] MEDS: PROTONIX PO SCH (10:32)
--- NOTE | 2017-05-01 10:42 | Progress Note ---
Assessment and Plan Abdominal pain with nausea vomiting and diarrhea Hyponatremia Hypokalemia Leukocytosis Hypertension -uncontrolled Hx of Schizophrenia SVT- treated with adenosine x1 currently in sinus rhythm on low dose metoprolol Sinus bradycardia, asymptomatic may be vasodepressor in origin TSH 2.5 Echo done 11/2016 shows a normal LV systolic function, EF 55-60%. Recommendations: Continue low dose beta elizabeth for suppression of paroxysmal SVT. Subjective Date of service: 05/01/17 Interval history: Patient had an episode of SVT that was treated with adenosine 6mg x 1. Patient has since remained in a stable sinus rhythm. She has no chest pain, shortness of breath or palpitations. Objective Vital Signs Temp Pulse Pulse Pulse Resp BP BP 05/01/17 10:32 104 H 139/92 05/01/17 10:31 104 H 139/92 05/01/17 06:10 56 L 188/92 05/01/17 04:53 97.8 F 56 L 16 188/92 05/01/17 01:28 51 L 18 05/01/17 00:00 98.8 F 51 L 16 154/71 04/30/17 19:59 99.4 F 55 L 16 153/70 04/30/17 15:19 98.0 F 64 20 113/60 04/30/17 15:16 78 04/30/17 11:15 98.6 F 92 H 16 164/78 Pulse Ox 05/01/17 10:32 05/01/17 10:31 05/01/17 06:10 05/01/17 04:53 100 05/01/17 01:28 05/01/17 00:00 99 04/30/17 19:59 100 04/30/17 15:19 100 04/30/17 15:16 04/30/17 11:15 - Physical Examination General: No Apparent Distress HEENT: Positive: PERRL Neck: Positive: trachea midline Cardiac: Positive: Reg Rate and Rhythm Lungs: Positive: Decreased Breath Sounds - Labs and Meds Comprehensive Metabolic Panel 05/01/17 Range/Units 05:48 Sodium 138 (137-145) mmol/L Potassium 4.0 (3.6-5.0) mmol/L Chloride 96.6 L (98-107) mmol/L Carbon Dioxide 30 (22-30) mmol/L BUN 3 L (7-17) mg/dL Creatinine 0.6 L (0.7-1.2) mg/dL Glucose 92 (65-100) mg/dL Calcium 9.2 (8.4-10.2) mg/dL
[2017-05-01] MEDS ORDERED: IMODIUM PO PRN (12:11)
[2017-05-01] MEDS: FLAGYL PO SCH ×2 (13:18→22:04)
--- NOTE | 2017-05-01 14:20 | Progress Note ---
Subjective Date of service: 05/01/17 Interval history: Diarrhea:R/O Secondary to antibiotics Rule out C. difficile diarrhea :appears unlikely Hold Protonix. Discontinue antibiotic. Stool for WBC and C. difficile toxin Imodium when necessary Monitor serum electrolytes -Hypokalemia; improved --Acute colitis: --SVT paroxysmal: Improved. Continue low-dose beta elizabeth --Hyponatremia; corrected, closely monitor electrolytes --Hypertension well controlled; continue current antihypertensive medications and when necessary hydralazine --Acute gastritis ; DC PPI and IV fluids Physical therapy, ambulate as tolerated, discharge if cleared by cardiology History Interval history: Patient seen and evaluated in her room this morning medical records reviewed Complains of diarrhea. States she had 5 loose BMs this morning. Denies abdominal pain nausea or vomiting Alert awake responding appropriately, vital signs stable Objective - Constitutional Vitals: Vital Signs - 12hr 05/01/17 05/01/17 05/01/17 04:53 06:10 08:00 Temperature 97.8 F 98.1 F Pulse Rate 56 L Pulse Rate [ 56 L From Monitor] Pulse Rate [ 104 H Left Radial] Respiratory 16 18 Rate Blood Pressure 188/92 Blood Pressure 139/92 [Left Arm] Blood Pressure 188/92 [Right Arm] O2 Sat by Pulse 100 Oximetry 05/01/17 05/01/17 05/01/17 10:31 10:32 12:25 Temperature 97.9 F Pulse Rate 104 H 104 H Pulse Rate [ From Monitor] Pulse Rate [ 64 Left Radial] Respiratory 18 Rate Blood Pressure 139/92 139/92 Blood Pressure 119/77 [Left Arm] Blood Pressure [Right Arm] O2 Sat by Pulse Oximetry General appearance: Present: no acute distress - EENT Eyes: PERRL, EOM intact ENT: hearing intact, clear oral mucosa - Neck Neck: supple, normal ROM, no masses or JVD - Respiratory Respiratory effort: normal Respiratory: bilateral: CTA - Cardiovascular Rhythm: regular Heart Sounds: Present: S1 & S2 Extremities: No edema - Gastrointestinal General gastrointestinal: Present: soft, non-tender. Absent: hepatomegaly, splenomegaly Rectal Exam: deferred - Integumentary Integumentary: clear - Musculoskeletal Musculoskeletal: strength equal bilaterally - Neurologic Neurologic: no focal deficits - Labs CBC & Chem 7: 04/29/17 06:33 05/01/17 05:48 Labs: Abnormal lab results 05/01/17 Range/Units 05:48 Chloride 96.6 L (98-107) mmol/L BUN 3 L (7-17) mg/dL Creatinine 0.6 L (0.7-1.2) mg/dL
[2017-05-01] MEDS: GEODON PO SCH (22:04)
[2017-05-02] MEDS: DILAUDID IV PRN ×3 (02:10→10:05)
[2017-05-02] MEDS: FLAGYL PO SCH (05:52)
[2017-05-02 07:08] LABS: Anion Gap 20 mmol/L; Blood Urea Nitrogen 6 mg/dL (7-17); Calcium 9.6 mg/dL (8.4-10.2); Carbon Dioxide 26 mmol/L (22-30); Chloride 94.1 mmol/L (98-107); Glucose 91 mg/dL (65-100); Potassium 4.5 mmol/L (3.6-5.0); Sodium 136 mmol/L (137-145)
--- NOTE | 2017-05-02 11:29 | Progress Note ---
Assessment and Plan Abdominal pain with nausea vomiting and diarrhea Hyponatremia Hypokalemia Leukocytosis Hypertension -uncontrolled Hx of Schizophrenia Paroxysmal SVT- treated with adenosine x1 currently in sinus rhythm on low dose metoprolol TSH 2.5 Sinus bradycardia, asymptomatic may be vasodepressor in origin Echo done 11/2016 shows a normal LV systolic function, EF 55-60%. Recommendations: We will increase beta elizabeth for suppression of paroxysmal SVT. EP evaluation, once discharged, for outpatient ablation. Subjective Date of service: 05/02/17 Interval history: SVT noted on telemetry monitoring this morning. Patient spontaneously reverted back to a sinus rhythm. Objective Vital Signs Temp Pulse Pulse Resp BP BP Pulse Ox 05/02/17 08:00 98.1 F 63 18 166/79 99 05/02/17 04:10 97.9 F 63 18 138/77 05/02/17 01:46 65 05/02/17 00:47 98.0 F 64 16 158/74 100 05/01/17 20:45 98.1 F 58 L 22 156/68 100 05/01/17 20:36 60 18 05/01/17 18:10 99.0 F 64 18 100/61 96 05/01/17 12:25 97.9 F 64 18 119/77 - Physical Examination General: No Apparent Distress HEENT: Positive: PERRL Neck: Positive: trachea midline Cardiac: Positive: Reg Rate and Rhythm Lungs: Positive: Decreased Breath Sounds Neuro: Positive: Grossly Intact - Labs and Meds Comprehensive Metabolic Panel 05/02/17 Range/Units 06:05 Sodium 136 L (137-145) mmol/L Potassium 4.5 (3.6-5.0) mmol/L Chloride 94.1 L (98-107) mmol/L Carbon Dioxide 26 (22-30) mmol/L BUN 6 L (7-17) mg/dL Creatinine 0.6 L (0.7-1.2) mg/dL Glucose 91 (65-100) mg/dL Calcium 9.6 (8.4-10.2) mg/dL
[2017-05-02] MEDS: COZAAR PO SCH (11:31)
[2017-05-02] MEDS: LOVENOX SUB-Q SCH (11:31)
[2017-05-02] MEDS: TOPROL XL PO SCH (11:32)
--- NOTE | 2017-05-02 11:32 | Discharge Summary ---
Providers - Providers Date of Admission: 04/28/17 05:04 Date of discharge: 05/02/17 Attending physician: MOHINDER ROGERS MD 04/28/17 22:37 Consult to Cardiology [CONS] Routine Consulting Provider: ARMOND HOLM Reason For Exam: Bradycardia Primary care physician: CEMENT MASON Hospitalization Reason for admission: Colitis, abdominal pain, Paroxysmal SVT Condition: Stable Pertinent studies: CT of abdomen and pelvis no significant abnormality identified Hospital course: 56-year-old female presents to the emergency department from home by EMS with complaint of some mid abdominal pain, nausea, vomiting and diarrhea that started on the morning of admission. She thinks it is due to something that she ate. She says she has vomited about 6-7 times today. She is not taken anything for her symptoms prior to presentation. She has a past medical history of COPD, hypertension, hiatal hernia, previous GI bleed. She has a surgical history of esophagus repair, tonsillectomy, hysterectomy and a prior PEG tube that is no longer there. She has a psychiatric history of schizoaffective disorder and schizophrenia but denies any current hallucinations or suicidal/homicidal ideations. Patient was admitted to the floor and was monitored with IV antibiotics, IV fluids, nothing by mouth, the patient's getting better. Patient didn't have further nausea or vomiting but still she complains of abdominal pain. Patient started to tolerate diet. While she was in the hospital she developed SVT with heart rate of 150-160, cardiology was consulted and she was given adenosine 6 mg IV which terminated SVT. Patient is started with metoprolol and will be followed as an outpatient by [facility]. Patient will discharged with by mouth ciprofloxacin and Flagyl. Patient was hemodynamically stable at the time of discharge. Disposition: TO HOME OR SELFCARE Time spent for discharge: 31 minutes - Discharge Diagnoses (1) Colitis Status: Acute (2) Gastritis Status: Acute Qualifiers: Gastritis type: unspecified gastritis Chronicity: acute Gastritis bleeding: G (3) Hypokalemia Status: Acute (4) Hyponatremia Status: Acute (5) Leukocytosis Status: Acute Qualifiers: Leukocytosis type: unspecified Qualified Code(s): D72.829 - Elevated white blood cell count, unspecified (6) Nausea and vomiting Status: Acute Qualifiers: Vomiting type: unspecified Vomiting Intractability: non-intractable Qualified Code(s): R11.2 - Nausea with vomiting, unspecified (7) Hypertension Status: Chronic Qualifiers: Hypertension type: essential hypertension Qualified Code(s): I10 - Essential (primary) hypertension (8) SVT (supraventricular tachycardia) Status: Acute Core Measure Documentation - Palliative Care Palliative Care/ Comfort Measures: Not Applicable - Core Measures Any of the following diagnoses?: none Exam - Physical Exam Narrative exam: Not in cardiopulmonary distress. The patient is emaciated. Vital signs as documented. Head exam is unremarkable. No scleral icterus . Neck is without jugular venous distension, thyromegaly, or carotid bruits. Lungs are clear to auscultation. Cardiac exam reveals regular rate and Rhythm. First and second heart sounds normal. No murmurs, rubs or gallops. Abdominal exam reveals mild lower abdominal tenderness. Extremities are nonedematous and both femoral and pedal pulses are normal. [employer]: Alert and oriented 3. No focal weakness. - Constitutional Vitals: Temp Pulse Resp BP Pulse Ox 98.1 F 63 18 166/79 99 05/02/17 08:00 05/02/17 08:00 05/02/17 08:00 05/02/17 08:00 05/02/17 08:00 Plan Activity: no restrictions Weight Bearing Status: Full Weight Bearing Diet: low salt Follow up with: PRIMARY CARE, [Primary Care Provider] - 3-5 Days Prescriptions: Ciprofloxacin HCl [Ciprofloxacin TAB] 500 mg PO BID #10 tablet HYDROcodone/APAP 5-325 [[place] 5/325] 1 each PO Q6HR PRN #12 tablet PRN Reason: Pain Loperamide [Imodium] 2 mg PO Q2H PRN #10 capsule PRN Reason: Diarrhea Metoprolol Xl [Metoprolol SUCCINATE ER TAB] 50 mg PO QDAY #30 tablet metroNIDAZOLE [Flagyl TAB] 500 mg PO Q8HR #15 tablet
[2017-05-02] MEDS ORDERED: TOPROL XL PO SCH (12:00)
--- NOTE | 2017-05-02 12:12 | Query- Nutrition ---
Keena Bsutamante____Jossie Date:____05/02/17 Director Of Capital Giving/CDS:____Felipe Funes Phone#:____[phone] Exercise your independent professional judgment when responding to query. Questions asked do not imply a particular answer is desired or expected. We greatly appreciate your clarification on this issue. Clinical Documentation States: 56 year old female was admitted on 04/28/17. The discharge summary states " Discharge Diagnoses (1) Colitis Status: Acute (2) Gastritis Status: Acute Qualifiers: Gastritis type: unspecified gastritis Chronicity: acute Gastritis bleeding: G (3) Hypokalemia Status: Acute (4) Hyponatremia Status: Acute (5) Leukocytosis Status: Acute Qualifiers: Leukocytosis type: unspecified Qualified Code(s): D72.829 - Elevated white blood cell count, unspecified (6) Nausea and vomiting Status: Acute Qualifiers: Vomiting type: unspecified Vomiting Intractability: non-intractable Qualified Code(s): R11.2 - Nausea with vomiting, unspecified (7) Hypertension Status: Chronic Qualifiers: Hypertension type: essential hypertension Qualified Code(s): I10 - Essential (primary) hypertension (8) SVT (supraventricular tachycardia) Status: Acute " Clinical Findings Show: BMI: 17.1 Please select the most appropriate option 3 [] Mild Malnutrition [x] Mild - Moderate Malnutrition [] Moderate - Severe Malnutrition [] Severe Malnutrition Serum Albumin 2.8 to 3.4 g/dl or Pre-albumin 5 to 17 mg/dl1,2 Inadequate nutritional intake1,2,3,4 NPO > 5 days Weight loss: 5% in 1 month or 7.5% in 3 months or 10% in 6 months1, 3,4 BMI 16 to 18.4 or Weight <90% of ideal body weight1,2,3,4 Serum Albumin < 2.8 g/ dl1,2 Lymphocytes < 1500/ L2 Inadequate nutritional intake3, high stress e.g. major trauma, sepsis,pancreatitis, duncan etc. Decubitus ulcers1,2, , skin breakdown2, easy hair pluckability2 Weight <80% standard for height2 Triceps skin fold <3 mm2 Mid-arm muscle circumference <15 cm2 Creatinine-height index <60% standard2 [ x] Cachexia [ ] Emaciated w/Malnutrition [ ] Other: [ ] Unable to determine [ ] Comment/Explanation: Present on Admission: [ x] Yes (Y) [ ] Clinically undeterminable (W) [ ] No (N) Please also document response in your Progress Notes and/or Discharge Summary and indicate if the condition was present on admission. MTDD
[2017-05-02 13:33] VITALS: BP 154/66
== END 2017-05-02 15:46 | disposition home or self-care (01) | DRG 392 ==
LOC: ED 21:28 → 3A 04-28 05:04 → 4A 04-30 21:32
PROVIDERS: ADMIT Internal Medicine; ATTEND Internal Medicine
DX: K52.9 Noninfective gastroenteritis and colitis, unspecified (principal); E87.1 Hypo-osmolality and hyponatremia; I47.1 Supraventricular tachycardia; Z68.1 Body mass index [BMI] 19.9 or less, adult; E44.0 Moderate protein-calorie malnutrition; E87.6 Hypokalemia; I10 Essential (primary) hypertension; E86.9 Volume depletion, unspecified; J44.9 Chronic obstructive pulmonary disease, unspecified; F25.9 Schizoaffective disorder, unspecified; F20.9 Schizophrenia, unspecified; K29.00 Acute gastritis without bleeding; D72.829 Elevated white blood cell count, unspecified; R00.1 Bradycardia, unspecified; Z90.710 Acquired absence of both cervix and uterus; Z88.6 Allergy status to analgesic agent
CPT/HCPCS: 36415; 74177; 80048; 80051; 80053; 81001; 82962; 83690; 83735; 84132; 84439; 84443; 85025; 93005; 93010; 96365; 96366; 96375; C9113; J0360; J1170; J1650; J2270; J2405; J2543; J3480; J7030; J7042; Q9967

== ENCOUNTER 2017-06-15 02:06 | Inpatient (IN) | payer MEDICARE ==
[2017-06-15] MEDS ORDERED: NACL 0.9% 1000 ML 1,000 ML IV ONE ×3 (03:25→12:02)
[2017-06-15 03:51] LABS: Basophils % (Auto) 0.6 % (0.0-1.8); Eosinophils % (Auto) 2.1 % (0.0-4.3); Hematocrit 25.9 % (30.3-42.9); Hemoglobin 8.4 gm/dl (10.1-14.3); Mean Corpuscular HGB Conc 32 % (30-34); Mean Corpuscular Hemoglobin 29 pg (28-32); Mean Corpuscular Volume 90 fl (79-97); Platelet Count 451 K/mm3 (140-440); Red Blood Count 2.89 M/mm3 (3.65-5.03); Red Cell Distribution Width 15.8 % (13.2-15.2); White Blood Count 12.9 K/mm3 (4.5-11.0)
[2017-06-15 04:08] LABS: Anion Gap 15 mmol/L; BUN/Creatinine Ratio 26.66; Blood Urea Nitrogen 16 mg/dL (7-17); Calcium 8.8 mg/dL (8.4-10.2); Carbon Dioxide 26 mmol/L (22-30); Chloride 96.8 mmol/L (98-107); Creatine Kinase 54 units/L (30-135); Creatine Kinase MB 2.4 ng/mL (0.0-4.0); Glucose 86 mg/dL (65-100); Sodium 135 mmol/L (137-145)
--- NOTE | 2017-06-15 07:04 | Emergency Department Report ---
ED General Adult HPI - General Chief complaint: Syncope Stated complaint: SYNCOPAL EPISODE Time Seen by Provider: 06/15/17 06:47 Source: patient Mode of arrival: Stretcher Limitations: No Limitations - History of Present Illness Initial comments: Patient tells me that she passed out in route to the bathroom. Apparently she hit her head. She does not complain of neck pain. She is very poor historian with a schizoaffective disorder. However she states that she never had a passing out spell before. Apparently she did fall and break her pelvis and she states her lower back. I think she is saying that she was admitted to [facility] for this. She denies any acute abdominal pain. She states that she is still having pain in her left hip area which she also states broken. Indeed she does have pelvic and sacral fractures and may be a lumbar endplate fracture on CT today. However her hip is intact. Patient complains of generalized weakness. She does not complain of cough shortness breath or chest pain. -: During the night Location: back (pelvis), pelvis, left Radiation: non-radiation Severity scale (0 -10): 9 Quality: aching Consistency: intermittent Improves with: none Worsens with: none Associated Symptoms: denies other symptoms Treatments Prior to Arrival: none - Related Data Home Medications Medication Instructions Recorded Confirmed Last Taken Cyclobenzaprine [Flexeril] 10 mg PO BID PRN 06/15/17 06/15/17 Unknown PARoxetine [Paxil] 20 mg PO DAILY 06/15/17 06/15/17 Unknown Pantoprazole Sodium 40 mg PO BID 06/15/17 06/15/17 Unknown oxyCODONE /ACETAMINOPHEN [Percocet 1 tab PO Q6HR PRN 06/15/17 06/15/17 Unknown 5/325] Previous Rx's Medication Instructions Recorded Last Taken Type Ziprasidone HCl [Geodon] 80 mg PO QHS #30 10/17/16 11/23/15 22:00 Rx Allergies Allergy/AdvReac Type Severity Reaction Status Date / Time aspirin AdvReac Bleeding Verified 10/14/16 03:11 ibuprofen AdvReac Bleeding Verified 10/14/16 03:11 ED Review of Systems ROS: Stated complaint: SYNCOPAL EPISODE Other details as noted in HPI Constitutional: weakness. denies: chills, fever Eyes: denies: eye pain, eye discharge, vision change ENT: denies: ear pain, throat pain Respiratory: denies: cough, shortness of breath, wheezing Cardiovascular: denies: chest pain, palpitations Endocrine: no symptoms reported Gastrointestinal: denies: abdominal pain, nausea, diarrhea Genitourinary: denies: urgency, dysuria, discharge Musculoskeletal: as per HPI, back pain. denies: joint swelling, arthralgia Skin: denies: rash, lesions Neurological: denies: headache, weakness, paresthesias Psychiatric: denies: anxiety, depression Hematological/Lymphatic: denies: easy bleeding, easy bruising ED Past Medical Hx - Past Medical History Previous Medical History?: Yes Hx Hypertension: No Hx Heart Attack/AMI: No Hx Congestive Heart Failure: No Hx Diabetes: No Hx Deep Vein Thrombosis: No Hx Pulmonary Embolism: No Hx Liver Disease: No Hx Renal Disease: No Hx Sickle Cell Disease: No Hx Seizures: No Hx Kidney Stones: No Hx Psychiatric Treatment: Yes (schizoaffective) Hx Asthma: No Hx COPD: Yes Hx Tuberculosis: No Hx HIV: No Additional medical history: hiatal hernia. holes in esophagus. gi bleed-- bleeding ulcers. schizoaffective disorder - Surgical History Past Surgical History?: Yes Hx Coronary Stent: No Hx Open Heart Surgery: No Hx Pacemaker: No Hx Internal Defibrillator: No Hx Cholecystectomy: No Hx Appendectomy: Yes (at 10 y/o) Hx Breast Surgery: No Additional Surgical History: esophagus repair. left foot surgery. tonsilectomy. x 2. hysterectomy. 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 - Social History Smoking Status: Former Smoker Substance Use Type: None - Medications Home Medications: Home Medications Medication Instructions Recorded Confirmed Last Taken Type Ziprasidone HCl [Geodon] 80 mg PO QHS #30 10/17/16 06/15/17 11/23/15 22:00 Rx Cyclobenzaprine [Flexeril] 10 mg PO BID PRN 06/15/17 06/15/17 Unknown History PARoxetine [Paxil] 20 mg PO DAILY 06/15/17 06/15/17 Unknown History Pantoprazole Sodium 40 mg PO BID 06/15/17 06/15/17 Unknown History oxyCODONE /ACETAMINOPHEN [Percocet 1 tab PO Q6HR PRN 06/15/17 06/15/17 Unknown History 5/325] ED Physical Exam - General Limitations: No Limitations General appearance: alert, in no apparent distress - Head Head exam: Present: normocephalic, other (small forehead ecchymosis no hematoma) - Eye Eye exam: Present: normal appearance, PERRL, EOMI. Absent: scleral icterus - ENT ENT exam: Present: mucous membranes moist, other (some conjunctival pallor) - Neck Neck exam: Present: normal inspection, full ROM, other (no cervical or paravertebral tenderness at all). Absent: tenderness, meningismus - Respiratory Respiratory exam: Present: normal lung sounds bilaterally. Absent: respiratory distress - Cardiovascular Cardiovascular Exam: Present: regular rate, normal rhythm. Absent: systolic murmur, diastolic murmur, rubs, gallop - GI/Abdominal GI/Abdominal exam: Present: soft, normal bowel sounds. Absent: distended, tenderness, guarding, rebound, rigid, organomegaly, mass, bruit - Extremities Exam Extremities exam: Present: other (some discomfort left pelvis no shortening or deformity of the lower extremity) - Back Exam Back exam: Present: normal inspection, vertebral tenderness - Neurological Exam Neurological exam: Present: alert, oriented X3, CN II-XII intact. Absent: motor sensory deficit - Psychiatric Psychiatric exam: Present: normal affect, normal mood - Skin Skin exam: Present: warm, dry, intact, normal color. Absent: rash ED Course Vital Signs 06/15/17 06/15/17 06/15/17 03:01 03:10 03:21 Temperature 97.9 F Pulse Rate 75 76 75 Respiratory 19 19 15 Rate Blood Pressure 77/44 77/44 84/60 Blood Pressure 77/44 [Left] O2 Sat by Pulse 94 98 100 Oximetry 06/15/17 06/15/17 06/15/17 03:30 03:51 04:00 Temperature Pulse Rate 75 83 71 Respiratory 18 24 13 Rate Blood Pressure 90/54 100/56 98/59 Blood Pressure [Left] O2 Sat by Pulse 100 98 98 Oximetry 06/15/17 06/15/17 06/15/17 04:11 04:16 04:21 Temperature Pulse Rate 67 90 Respiratory 14 19 16 Rate Blood Pressure 90/54 100/51 Blood Pressure [Left] O2 Sat by Pulse 96 100 96 Oximetry 06/15/17 06/15/17 06/15/17 04:41 04:51 07:43 Temperature 97.6 F Pulse Rate 68 64 92 H Respiratory 13 14 18 Rate Blood Pressure 100/51 112/49 Blood Pressure 105/30 [Left] O2 Sat by Pulse 100 98 100 Oximetry 06/15/17 11:29 Temperature 98.6 F Pulse Rate 80 Respiratory 18 Rate Blood Pressure Blood Pressure 129/63 [Left] O2 Sat by Pulse 100 Oximetry - Reevaluation(s) Reevaluation #1: Patient had a CT of the head ordered during the night this was negative. I added a CT of the abdomen and pelvis after my encounter when I went to see the patient who was in the CT suite. This did show multiple pelvic sacral and a lumbar endplate fracture but no retroperitoneal hematoma or any acute abdominal process. Later considering the patient's syncope and recent pelvic fractures I decided to do a CT angiogram to rule out pulmonary embolism although the patient was not experiencing acute dyspnea. This exam was negative for pulmonary embolism. The patient is admitted by Dr. Melgoza to the Hospitalist service telemetry. She was typed and screened but not transfused yet. Obviously her blood count should be serially followed. 06/15/17 11:54 06/15/17 11:57 Reevaluation #2: On reassessment patient has remained hemodynamically stable. She was admitted to telemetry in stable condition. 06/15/17 12:05 ED Medical Decision Making - Lab Data Result diagrams: 06/15/17 03:37 06/15/17 03:37 Laboratory Results - last 24 hr 06/15/17 06/15/17 03:37 03:37 WBC 12.9 H RBC 2.89 L Hgb 8.4 L Hct 25.9 L MCV 90 MCH 29 MCHC 32 RDW 15.8 H Plt Count 451 H Lymph % (Auto) 13.3 L [place] % (Auto) 6.2 Eos % (Auto) 2.1 Baso % (Auto) 0.6 Lymph # 1.7 Treasure # 0.8 Eos # 0.3 Baso # 0.1 Seg Neutrophils % 77.8 H Seg Neutrophils # 10.0 H Sodium 135 L Potassium 3.0 L Chloride 96.8 L Carbon Dioxide 26 Anion Gap 15 BUN 16 Creatinine 0.6 L Estimated GFR > 60 BUN/Creatinine Ratio 26.66 Glucose 86 Calcium 8.8 Total Creatine Kinase 54 CK-MB (CK-2) 2.4 CK-MB (CK-2) Rel Index 4.4 H Troponin T < 0.010 - EKG Data -: EKG Interpreted by Me EKG shows normal: sinus rhythm, axis, intervals, QRS complexes, ST-T waves Rate: normal - EKG Data Interpretation: no acute changes - Radiology Data Radiology results: report reviewed interpreted by me: CT the head and CT angiogram of the chest was negative. CT of the abdomen and pelvis. This shows multiple comminuted fractures of the bony pelvis including the bilateral sacrum left anterior acetabulum superior pubic ramus and left inferior pubic ramus. These are not acute. There is a compression fracture of the superior endplate of L1. CT is otherwise not relevant to patient care Critical Care Time: Yes Critical care time in (mins) excluding proc time.: 60 Critical care attestation.: If time is entered above; I have spent that time in minutes in the direct care of this critically ill patient, excluding procedure time. ED Disposition Clinical Impression: Hypotensive episode, Hypokalemia Syncope Qualifiers: Syncope type: unspecified Qualified Code(s): R55 - Syncope and collapse Anemia Qualifiers: Anemia type: unspecified type Qualified Code(s): D64.9 - Anemia, unspecified Pelvic fracture Qualifiers: Encounter type: initial encounter Pelvic bone location: multiple parts Fracture type: closed Fracture alignment: with stable disruption of pelvic ring Qualified Code(s): S32.810A - Multiple fractures of pelvis with stable disruption of pelvic ring, initial encounter for closed fracture Disposition: 09 OP ADMIT IP TO THIS HOSP Is pt being admited?: Yes Does the pt Need Aspirin: No Condition: Stable Instructions: Syncope (ED) Referrals: [facility] [Other] - 3-5 Days Time of Disposition: 12:04
[2017-06-15] MEDS ORDERED: K-DUR PO ONE ×3 (07:25→12:02)
--- NOTE | 2017-06-15 07:45 | Cat Scan Report ---
FINAL REPORT EXAM: CT HEAD/BRAIN W/O CONTRAST. HISTORY: Status post head trauma. TECHNIQUE: Unenhanced axial CT images of the brain were obtained. Comparison is made with prior study 11/25/2016. FINDINGS: There is mild diffuse generalized volume loss. There are patchy areas of low-attenuation in the periventricular and subcortical white-matter, including asymmetric dominant region adjacent to the left frontal horn. These findings are nonspecific but most commonly due to chronic small vessel ischemic disease. Subcentimeter punctate low attenuating foci are seen within both basal ganglia, representing lacunar infarctions or prominent perivascular spaces. The overall appearance is not significantly changed compared to prior exam. There is no extra-axial fluid collection, mass, mass effect, midline shift, hydrocephalus, or acute intracranial hemorrhage. The visualized paranasal sinuses and mastoid air cells are clear. There is no skull fracture or other osseous abnormality. There is complete soft tissue opacification of the right external auditory canal, presumably from cerumen, stable in appearance. IMPRESSION: 1. No fracture or acute intracranial abnormality. 2. Generalized volume loss and probable chronic small vessel ischemic disease, overall without significant interval change compared to 11/25/2016.
[2017-06-15] MEDS ORDERED: PROTONIX IV ONE (08:12)
--- NOTE | 2017-06-15 08:26 | Cat Scan Report ---
FINAL REPORT EXAM: CT ABDOMEN PELVIS W/O CONTRAST. HISTORY: Status post fall, patient states broke pelvis last last week. Pain. TECHNIQUE: Unenhanced axial CT images of the abdomen and pelvis were obtained, with sagittal and coronal reformatted images. Comparison is made with prior study 04/27/2017. FINDINGS: The unenhanced liver, biliary tree, gallbladder, pancreas, and spleen are unremarkable. There are bilateral adrenal masses, measuring 1.6 cm on the left and 1.7 cm on the right. These both demonstrate unenhanced CT characteristics of adenomas (-5 HU on the left and 0 HU on the right). A 4.2 cm cyst is again noted in the left renal pole. The subcentimeter low attenuating lesions seen in the right kidney on prior enhanced CT are not demonstrated on this unenhanced exam. A right extrarenal pelvis is again noted. There is no urinary tract obstruction. Evaluation of bowel is limited due to lack of oral contrast. There is a large fluid-filled hiatal hernia. There is moderate residual stool in the colon. There is no intestinal obstruction or free air. The abdominal aorta is normal in caliber. There is no pathologic abdominal or pelvic lymphadenopathy. There is no free or loculated fluid collection. The patient is status post hysterectomy. The unopacified urinary bladder is unremarkable. There are several nodular foci of soft tissue in the subcutaneous fat of the right anterior abdominal wall, at approximately the level of the iliac crests. These measure up to 6-7 mm, and are new compared to prior study. Query interval subcutaneous injections. There is a compression fracture at the superior endplate of L1, new compared to 04/27/2017. There are comminuted, predominantly vertical fractures involving the sacrum on both sides, extending from the sacral ala inferiorly to the lower sacrum. Portions of the fracture lines demonstrate intra-articular extension to the anterior right sacroiliac joint. There is also a transverse fracture through the region of S2-S3. There is also a markedly comminuted fracture involving the left anterior acetabulum, extending into the left superior pubic ramus. There is also a moderately comminuted fracture of the left inferior pubic ramus. The bilateral femoral heads are intact, and there is no evidence of dislocation. No other fracture is seen. There is moderate chronic appearing interstitial lung disease at both lung bases, stable. IMPRESSION: 1. Multiple comminuted fractures of the bony pelvis, including the bilateral sacrum, left anterior acetabulum/superior pubic ramus, and left inferior pubic ramus, as described. 2. Compression fracture at the superior endplate of L1, new compared to 04/27/2017. 3. Bilateral adrenal adenomas. 4. Large hiatal hernia. 5. New subcentimeter nodular soft tissue foci within the subcutaneous fat of the right anterior abdominal wall, query subcutaneous injections in this region. Correlation with clinical history and physical exam is recommended.
[2017-06-15] MEDS ORDERED: NORCO 5/325 PO ONE (09:25)
[2017-06-15] MEDS ORDERED: NACL ONE (09:35)
[2017-06-15 09:49] LABS: INR 0.92 (0.87-1.13); Partial Thromboplastin Time 26.9 Sec. (24.2-36.6)
--- NOTE | 2017-06-15 09:52 | XRay Report ---
AP CHEST: HISTORY: Hypotension Compared to 11/25/16. Normal heart size and pulmonary vascularity. There are moderate chronic interstitial changes in both lungs but no consolidation, pleural effusion or pneumothorax. IMPRESSION: Chronic interstitial changes. No acute process noted.
[2017-06-15 10:02] LABS: Alanine Aminotransferase 8 units/L (7-56); Albumin 3.1 g/dL (3.9-5); Albumin/Globulin Ratio 1.3 %; Alkaline Phosphatase 122 units/L (35-129); Lipase 22 units/L (13-60); Total Protein 5.4 g/dL (6.3-8.2)
[2017-06-15 10:05] LABS: Bilirubin,Direct < 0.2 mg/dL (0-0.2)
--- NOTE | 2017-06-15 10:07 | Cat Scan Report ---
CTA CHEST: History: Syncope, pain. Technique: Helical CT following IV contrast. Pulmonary embolus protocol. Sagittal and coronal reformatted images. Rotational MIP images. Findings: Contrast bolus is satisfactory. No pulmonary embolus is identified. Severe emphysematous changes are identified bilaterally. Large bulla in the left upper lobe measures up to 6 cm. There are patchy airspace densities in both lower lobes which is probably represents smokers related change. Early fibrotic changes are also identified in bases. No evidence for infiltrate, mass or pneumothorax. Heart size is within normal limits. No pericardial effusion. There is mild circumferential thickening of the esophagus which may represent esophagitis. Moderate hiatal hernia. Limited images of the upper abdomen demonstrate a 2 cm right adrenal adenoma and a 5 cm left renal cyst. Impression: No pulmonary embolus is identified. Severe emphysematous changes. Circumferential thickening of esophagus which may represent esophagitis. Moderate hiatal hernia.
[2017-06-15] MEDS ORDERED: MILK OF MAGNESIA PO PRN (11:31)
[2017-06-15] MEDS ORDERED: DULCOLAX PR PRN (11:31)
[2017-06-15] MEDS ORDERED: TYLENOL PO PRN (11:31)
--- NOTE | 2017-06-15 12:22 | History and Physical Report ---
History of Present Illness Date of examination: 06/15/17 Date of admission: 06/15/17 11:31 Chief complaint: syncope History of present illness: 57 y/o WF presented to ER with c/o fall in route to the bathroom. Apparently she hit her head. She does not complain of neck pain. She is very poor historian with a schizoaffective disorder. Apparently she did fall and was admitted to [facility] about a week ago. She states that she is still having pain in her left hip area which she also limits her ambulation. In the ER T pelvis showed she does have pelvic and sacral fractures and may be a lumbar endplate fracture. She is being admitted for further evaluation and management. 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 Neck: No neck pain or rigidity. Cardiovascular: No chest pain, no orthopnea, no palpitations, no leg swelling Respiratory: No shortness of breath, no cough, no congestion, no wheezing Gastrointestinal: no abdominal pain, no nausea, no vomiting Genitourinary : no dysuria, no hematuria Musculoskeletal: pelvic pain Integumentary: no rash, no pruritis Neurological: no parathesias, no numbness, no tingling Endocrine: no cold or heat intolerance, no polyuria or polydipsia Hematologic/Lymphatic: no easy bruising, no easy bleeding, no gland swelling Allergic/Immunologic: no urticaria, no angioedema. Medications and Allergies Allergies Allergy/AdvReac Type Severity Reaction Status Date / Time aspirin AdvReac Bleeding Verified 10/14/16 03:11 ibuprofen AdvReac Bleeding Verified 10/14/16 03:11 Home Medications Medication Instructions Recorded Confirmed Last Taken Type Ziprasidone HCl [Geodon] 80 mg PO QHS #30 10/17/16 06/15/17 11/23/15 22:00 Rx Cyclobenzaprine [Flexeril] 10 mg PO BID PRN 06/15/17 06/15/17 Unknown History PARoxetine [Paxil] 20 mg PO DAILY 06/15/17 06/15/17 Unknown History Pantoprazole Sodium 40 mg PO BID 06/15/17 06/15/17 Unknown History oxyCODONE /ACETAMINOPHEN [Percocet 1 tab PO Q6HR PRN 06/15/17 06/15/17 Unknown History 5/325] Active Meds: Active Medications Acetaminophen (Tylenol) 650 mg PO Q4H PRN PRN Reason: Pain MILD(1-3)/Fever >100.5/HWANG Acetaminophen/Hydrocodone Bitart ([place] 5/325) 2 each PO Q6H PRN PRN Reason: Pain, Moderate (4-6) Bisacodyl (Dulcolax) 10 mg DE QDAY PRN PRN Reason: Constipation unrelieved by MOM Enoxaparin Sodium (Lovenox) 30 mg SUB-Q QDAY ANTONELLA Famotidine (Pepcid) 20 mg PO BID ANTONELLA Sodium Chloride (Nacl 0.9% 1000 Ml) 1,000 mls @ 125 mls/hr IV ONCE ONE Stop: 06/15/17 16:11 Last Admin: 06/15/17 08:59 Dose: 125 mls/hr Sodium Chloride (Nacl 0.9% 1000 Ml) 1,000 mls @ 100 mls/hr IV DIRECT ANTONELLA Sodium Chloride (Nacl 0.9% 1000 Ml) 1,000 mls @ 125 mls/hr IV ONCE ONE Stop: 06/15/17 20:01 Magnesium Hydroxide (Milk Of Magnesia) 30 ml PO Q4H PRN PRN Reason: Constipation Ondansetron HCl (Zofran) 4 mg IV Q8H PRN PRN Reason: N/V unrelieved by Reglan Exam - Constitutional Vitals: Temp Pulse Resp BP Pulse Ox 98.6 F 80 18 129/63 100 06/15/17 11:29 06/15/17 11:29 06/15/17 11:29 06/15/17 11:29 06/15/17 11:29 General appearance: Present: no acute distress - EENT Eyes: Present: PERRL ENT: hearing intact, clear oral mucosa - Neck Neck: Present: supple, normal ROM - Respiratory Respiratory effort: normal Respiratory: bilateral: CTA - Cardiovascular Heart Sounds: Present: S1 & S2. Absent: rub, click - Extremities Extremities: pulses symmetrical, No edema Peripheral Pulses: within normal limits - Abdominal General gastrointestinal: Present: soft, non-tender, non-distended, normal bowel sounds Female genitourinary: Present: normal - Integumentary Integumentary: Present: clear, warm, dry - Musculoskeletal Musculoskeletal: gait normal, strength equal bilaterally - Psychiatric Psychiatric: appropriate mood/affect, intact judgment & insight - Neurologic Neurologic: CNII-XII intact, moves all extremities Results - Labs CBC & Chem 7: 06/16/17 21:33 06/16/17 06:12 - Imaging and Cardiology EKG: report reviewed Chest x-ray: report reviewed CT scan - chest: report reviewed (no PE) CT scan - pelvis: report reviewed (This shows multiple comminuted fractures of the bony pelvis including the bilateral sacrum left anterior acetabulum superior pubic ramus and left inferior pubic ramus. These are not acute. There is a compression fracture of the superior endplate of L1. ) Assessment and Plan frequent falls - could be due to medications or dehydration - PT eval Pelvic fracture - chronic, ordered PT - consulted ortho - as needed pain med Hypokalemia - cont to replace and monitor BMP Hypotensive episode - resolved with iv fluid Schizo affective schizophrenia - consult psych for med adjustment Anemia, chronic - cont to monitor h and h UTI, cont abx
[2017-06-15] MEDS: MORPHINE IV PRN ×3 (14:54→22:26)
[2017-06-15 15:50] LABS: Bilirubin,Urine NEG (Negative); Blood,Urine NEG (Negative); Ketones,Urine NEG (Negative); Leukocyte Esterase,Urine LG (Negative); Mucus,Urine FEW /HPF; Nitrite,Urine NEG (Negative); Protein,Urine <15 mg/dL mg/dL (Negative); Urobilinogen,Urine < 2.0 mg/dL (<2.0)
--- NOTE | 2017-06-15 19:19 | Consultation ---
History of Present Illness Consult date: 06/15/17 Medications and Allergies Allergies Allergy/AdvReac Type Severity Reaction Status Date / Time aspirin AdvReac Bleeding Verified 10/14/16 03:11 ibuprofen AdvReac Bleeding Verified 10/14/16 03:11 Home Medications Medication Instructions Recorded Confirmed Last Taken Type Ziprasidone HCl [Geodon] 80 mg PO QHS #30 10/17/16 06/15/17 11/23/15 22:00 Rx Cyclobenzaprine [Flexeril] 10 mg PO BID PRN 06/15/17 06/15/17 Unknown History PARoxetine [Paxil] 20 mg PO DAILY 06/15/17 06/15/17 Unknown History Pantoprazole Sodium 40 mg PO BID 06/15/17 06/15/17 Unknown History oxyCODONE /ACETAMINOPHEN [Percocet 1 tab PO Q6HR PRN 06/15/17 06/15/17 Unknown History 5/325] Active Meds: Active Medications Acetaminophen (Tylenol) 650 mg PO Q4H PRN PRN Reason: Pain MILD(1-3)/Fever >100.5/HWANG Acetaminophen/Hydrocodone Bitart ([place] 5/325) 2 each PO Q6H PRN PRN Reason: Pain, Moderate (4-6) Bisacodyl (Dulcolax) 10 mg NC QDAY PRN PRN Reason: Constipation unrelieved by MOM Enoxaparin Sodium (Lovenox) 30 mg SUB-Q QDAY ANTONELLA Famotidine (Pepcid) 20 mg PO BID ANTONELLA Sodium Chloride (Nacl 0.9% 1000 Ml) 1,000 mls @ 100 mls/hr IV DIRECT ANTONELLA Sodium Chloride (Nacl 0.9% 1000 Ml) 1,000 mls @ 125 mls/hr IV ONCE ONE Stop: 06/15/17 20:01 Last Admin: 06/15/17 12:50 Dose: 125 mls/hr Magnesium Hydroxide (Milk Of Magnesia) 30 ml PO Q4H PRN PRN Reason: Constipation Morphine Sulfate (Morphine) 2 mg IV Q3H PRN PRN Reason: Pain, Moderate (4-6) Last Admin: 06/15/17 14:54 Dose: 2 mg Ondansetron HCl (Zofran) 4 mg IV Q8H PRN PRN Reason: N/V unrelieved by Reglan Physical Examination Vital Signs Pulse Resp BP Pulse Ox 75 19 77/44 94 06/15/17 03:01 06/15/17 03:01 06/15/17 03:01 06/15/17 03:01 Results 06/15/17 03:37 06/15/17 03:37 Assessment and Plan Detailed Cardiology consult dictated.
[2017-06-15 22:08] LABS: Hematocrit 26.6 % (30.3-42.9); Hemoglobin 8.5 gm/dl (10.1-14.3)
[2017-06-15] MEDS: NACL 0.9% 1000 ML 1,000 ML IV SCH (22:28)
[2017-06-15] MEDS: PEPCID PO SCH (22:52)
--- NOTE | 2017-06-16 04:35 | Admit Criteria Form ---
Admission Criteria Documentation: SYNCOPE Clinical Indications for Admission to Inpatient Care ( Place 'X' for any and all applicable criteria): Admission is indicated for syncope and ANY ONE of the following (1)(2)(3)(4)(5) (6)(7) : [X ]I. Inpatient admission required rather than observation care (Also use Syncope: Observation Care Criteria as appropriate) because of ANY ONE of the following: [ ]a) Hemodynamic instability that is severe or persistent [ ]b) Cardiac arrhythmias of immediate concern identified or strongly suspected (eg, needs electrophysiologic study) [ ]c) Acute coronary syndrome identified (Also use Myocardial Infarction or Angina Criteria form ) [ ]d) Structural cardiac disorder (eg, aortic stenosis) suspected as cause that requires immediate correction [ ]e) Respiratory symptoms (eg, dyspnea, tachypnea) that are severe or persistent [ ]f) Neurologic signs or symptoms that are severe or persistent ( eg, stroke, seizures, altered mental status) [ X]g) Severe electrolyte abnormalities requiring inpatient care [ ]h) Supplemental oxygen or respiratory treatment for over 24 hrs that are performable only in acute inpatient setting [ ]i) IV fluid to replace significant ongoing (eg, for over 24 hrs ) losses (>3 L/m2 per day) [ ]j) Continuous intravenous infusion of anticoagulation, platelet inhibitor, vasoactive, or antiarrhythmic medication(15)(16) [ ]k) Pulmonary artery catheter monitoring [ ]l) Temporary pacemaker placement(17) [ ]m) Emergent cardioversion(18) [ ]n) Other conditions, treatment or monitoring requiring inpatient admission [ ]II. Suspicion of imminently dangerous cause (eg, rare causes like pericardial tamponade, pulmonary embolism) [ ]III. Syncope causing severe injury requiring hospitalization Extended stay beyond goal length of stay may be needed for(28) [ ]a) Dangerous arrhythmia(15)(23)(27)(29) [ ]b) Myocardial ischemia [ ]c) Seizure disorder [ ]d) Syncope-related injuries The original [employer] content created by [employer] has been revised. The portions of the content which have been revised are identified through the use of italic text or in bold, and [employer]ha [employer] has neither reviewed nor approved the modified material. All other unmodified content is copyright [facility] [employer]. Please see references footnoted in the original [facility] edition 2016 Admission Criteria Met: Yes
[2017-06-16 07:05] LABS: Hemoglobin 8.5 gm/dl (10.1-14.3)
[2017-06-16 07:14] LABS: Anion Gap 16 mmol/L; Blood Urea Nitrogen 6 mg/dL (7-17); Calcium 8.6 mg/dL (8.4-10.2); Carbon Dioxide 26 mmol/L (22-30); Chloride 98.2 mmol/L (98-107); Glucose 89 mg/dL (65-100); Potassium 4.3 mmol/L (3.6-5.0); Sodium 136 mmol/L (137-145)
[2017-06-16] MEDS: MORPHINE IV PRN ×4 (08:24→18:54)
[2017-06-16] MEDS: PEPCID PO SCH ×2 (11:19→21:44)
[2017-06-16] MEDS: LOVENOX SUB-Q SCH (11:20)
[2017-06-16] MEDS: LEVAQUIN PO SCH (13:02)
--- NOTE | 2017-06-16 13:18 | Progress Note ---
Assessment and Plan frequent falls - could be due to medications or dehydration - PT eval pending - cardiology following Pelvic fracture - chronic, ordered PT - consulted ortho - as needed pain med Hypokalemia - cont to replace and monitor BMP Hypotensive episode - resolved with iv fluid Schizo affective schizophrenia - consult psych for med adjustment Anemia, chronic - cont to monitor h and h UTI, cont abx disposition: after psych eval Subjective Date of service: 06/16/17 Interval history: Pt seen and examined no new complaints, tolerating diet Objective - Constitutional Vitals: Vital Signs - 12hr 06/16/17 06/16/17 04:00 07:00 Temperature 98.2 F 98.2 F Pulse Rate 80 90 Respiratory 18 20 Rate Blood Pressure 153/70 147/70 O2 Sat by Pulse 98 96 Oximetry General appearance: Present: no acute distress - EENT Eyes: PERRL, EOM intact ENT: hearing intact, clear oral mucosa Ears: bilateral: normal - Neck Neck: supple, normal ROM - Respiratory Respiratory effort: normal Respiratory: bilateral: CTA - Cardiovascular Rhythm: regular Heart Sounds: Present: S1 & S2. Absent: gallop, rub Extremities: pulses intact, No edema, normal color, Full ROM - Gastrointestinal General gastrointestinal: Present: soft, non-tender, non-distended, normal bowel sounds - Genitourinary Female genitourinary: normal - Integumentary Integumentary: clear, warm, dry - Musculoskeletal Musculoskeletal: 1, strength equal bilaterally - Neurologic Neurologic: moves all extremities - Psychiatric Psychiatric: memory intact, appropriate mood/affect, intact judgment & insight - Allied health notes Allied health notes reviewed: nursing - Labs CBC & Chem 7: 06/16/17 21:33 06/16/17 06:12 Labs: Abnormal lab results 06/15/17 06/15/17 06/16/17 Range/Units 15:00 21:49 06:12 Hgb 8.5 L (10.1-14.3) gm/dl Hct 26.6 L (30.3-42.9) % Sodium 136 L (137-145) mmol/L BUN 6 L (7-17) mg/dL Creatinine 0.4 L (0.7-1.2) mg/dL Urine WBC (Auto) 8.0 H (0.0-6.0) /HPF 06/16/17 Range/Units 06:12 Hgb 8.5 L (10.1-14.3) gm/dl Hct 26.0 L (30.3-42.9) % Sodium (137-145) mmol/L BUN (7-17) mg/dL Creatinine (0.7-1.2) mg/dL Urine WBC (Auto) (0.0-6.0) /HPF
--- NOTE | 2017-06-16 14:29 | Progress Note ---
Assessment and Plan Present management.F/U urine & Blood cultures.Monitor BP. - Patient Problems (1) Chest pain Current Visit: Yes Status: Chronic Qualifiers: Chest pain type: C Ischemic chest pain type: I (2) Anemia Current Visit: Yes Status: Chronic Qualifiers: Anemia type: unspecified type Iron deficiency anemia type: I Vitamin B12 deficiency anemia type: V Folate deficiency anemia type: F Bone marrow failure anemia type: B Hemolytic anemia type: H Other causes of anemia: O Chronic kidney disease stage: C Qualified Code(s): D64.9 - Anemia, unspecified (3) Hypokalemia Current Visit: Yes Status: Resolved (4) Hypotensive episode Current Visit: Yes Status: Resolved (5) Pelvic fracture Current Visit: Yes Status: Acute Qualifiers: Encounter type: initial encounter Pelvic bone location: multiple parts Sublocation of acetabulum: S Sublocation of pubis: S Fracture type: closed Fracture morphology: F Fracture alignment: with stable disruption of pelvic ring Laterality: L Fracture healing: F Qualified Code(s): S32.810A - Multiple fractures of pelvis with stable disruption of pelvic ring, initial encounter for closed fracture (6) Abnormal transaminases Current Visit: No Status: Acute (7) Atrial fibrillation with rapid ventricular response Current Visit: No Status: Resolved (8) Cachexia Current Visit: No Status: Chronic (9) Esophagitis Current Visit: No Status: Chronic (10) Psychiatric disorder Current Visit: No Status: Chronic (11) Erosive esophagitis Current Visit: No Status: Chronic (12) Schizo affective schizophrenia Current Visit: No Status: Chronic Subjective Date of service: 06/16/17 Interval history: Clinically improved. K: Normal (4.3). H and H : 8.5 and 26 respectively.No CP or sob. Objective Vital Signs Temp Pulse Resp BP BP Pulse Ox 06/16/17 13:29 98.4 F 88 18 152/66 98 06/16/17 07:00 98.2 F 90 20 147/70 96 06/16/17 04:00 98.2 F 80 18 153/70 98 06/16/17 00:00 98.1 F 84 18 143/68 97 06/15/17 19:59 98.3 F 84 18 135/76 98 06/15/17 17:01 98.6 F 86 18 121/90 98 - Physical Examination General: Appears Well, No Apparent Distress HEENT: Positive: PERRL, Normocephaly, Mucus Membranes Moist Neck: Positive: neck supple, trachea midline Cardiac: Positive: Reg Rate and Rhythm, Systolic Murmur, Other (Loud S1, S2 ( thin chest wall).) Lungs: Positive: clear to auscultation, Normal Breath Sounds Neuro: Positive: Grossly Intact Abdomen: Positive: Soft, Active Bowel Sounds Skin: Positive: Clear. Negative: Rash Musculoskeletal: No Fluid Collection, Normal Range of Motion Extremities: Present: upper extr. pulses, lower extr. pulses. Absent: edema - Labs and Meds CBC 06/15/17 06/16/17 Range/Units 21:49 06:12 Hgb 8.5 L 8.5 L (10.1-14.3) gm/dl Hct 26.6 L 26.0 L (30.3-42.9) % Comprehensive Metabolic Panel 06/16/17 Range/Units 06:12 Sodium 136 L (137-145) mmol/L Potassium 4.3 D (3.6-5.0) mmol/L Chloride 98.2 (98-107) mmol/L Carbon Dioxide 26 (22-30) mmol/L BUN 6 L (7-17) mg/dL Creatinine 0.4 L (0.7-1.2) mg/dL Glucose 89 (65-100) mg/dL Calcium 8.6 (8.4-10.2) mg/dL - Imaging and Cardiology EKG: report reviewed, image reviewed - Telemetry EKG Rhythm: Sinus Rhythm - EKG Sinus rhythms and dysrhythmias: sinus rhythm
[2017-06-16 15:15] LABS: Hematocrit 27.7 % (30.3-42.9); Hemoglobin 9.2 gm/dl (10.1-14.3)
--- NOTE | 2017-06-16 17:58 | Consultation ---
REFERRING PHYSICIAN: Nimo Melgoza MD HISTORY OF PRESENT ILLNESS: A 57-year-old thin-built (BMI of 15.7) pleasant white woman who was admitted with a history of presyncopal episode and low potassium. The patient has history of hypertension and supraventricular tachycardia. As per her, she had severe lightheadedness en route to her bathroom. She has a history of schizoaffective disorder. She had sustained pelvic fracture and also sacral fractures. She still complains of left hip pain. No history of diabetes mellitus or hyperlipidemia. She is anemic and her hemoglobin is 8.4 during this admission. Her BUN and creatinine are within normal limits. Aggressive potassium supplements were given and repeat BMP is ordered for tomorrow. Serum magnesium level is normal. CPK was 54 with the MB of 2.4. Troponins x 2 were negative and myocardial infarction has been ruled out. Serum albumin is 3.1. She did not have any chest pain or shortness of breath. As per her, she did not lose consciousness. PAST MEDICAL HISTORY: History of multiple medical problems as described above. No history of CAD or myocardial infarction in the past. She also has history of GERD and COPD. She has had hysterectomy in the past. She has had \\"surgery for holes in the esophagus\\" in the past, further details are not known at this time. History of malnutrition. The cause for her hypokalemia is not known. No history of vomiting or diarrhea. No history of diuretic use. She has history of schizoaffective disorder. SOCIAL HISTORY: Not a smoker, not an alcoholic. No history of drug abuse. FAMILY HISTORY: As per her, her father had a past myocardial infarction at the age of 35, further details are not known at this time. ALLERGIES: No specific medication allergies; however, she gives history of GI bleeding in the past secondary to aspirin and ibuprofen. MEDICATIONS: Lovenox 30 mg subcutaneous daily, Pepcid 20 mg p.o. b.i.d., hydrocodone p.r.n., intravenous fluids, potassium supplement. She has received pantoprazole 40 mg IV once. IMAGING: The patient had a CAT scan of the chest which did not reveal any evidence of pulmonary embolism. Moderate hiatal hernia and COPD was seen. The patient also had a CAT scan of the abdomen and pelvis which again revealed a large hiatal hernia. Pelvic and sacral fractures were seen. The patient's echocardiogram on 11/25/2016 revealed [id number] concentric left ventricular hypertrophy and normal systolic function with EF around 55-60%. REVIEW OF SYSTEMS: CARDIOVASCULAR: As described in the history. PULMONARY: As described in the history. GASTROINTESTINAL: As described in the history. BONE AND JOINTS: As described in the history. NEUROLOGICAL: As described in the history. Review of rest of the 10 systems is negative. PHYSICAL EXAMINATION: GENERAL: A 57-year-old thin-built, pleasant white woman, not in distress. She is alert and oriented x 3. VITAL SIGNS: She is afebrile, pulse 86 per minute and regular, blood pressure 121/90 mmHg, respirations are 18 per minute. NEUROLOGIC: As described above. NECK: Supple. No JVD, no bruit, no thyromegaly. HEART: PMI shifted laterally and is forcible in nature. No palpable thrills. Auscultation of heart reveals S1, S2 heard. Both sounds are loud because of thin chest wall. Grade 2/6 ejection systolic murmur is heard over the precordium. Peripheral pulses felt. No edema. LUNGS: Bilateral air entry equal. No bronchial breathing, no wheezing. ABDOMEN: Soft, benign. No organomegaly. SKIN: Negative. BONE AND JOINTS: As described above. LABORATORY DATA: Potassium 3, BUN and creatinine within normal limits. Serum magnesium level normal. Serum troponins x 2 negative. ProBNP 311. Serum albumin 3.1. 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 Chest x-ray, bilateral chronic interstitial changes. Hemoglobin and hematocrit 8.4 and 25.9 respectively. WBC 12.9 with a normal platelet count. PT, PTT within normal limits. IMPRESSION: 1. History of fall and presyncope. 2. Pelvic and sacral fractures. 3. History of multiple medical problems as hypertension, chronic obstructive pulmonary disease and gastroesophageal reflux disease. 4. History of esophageal surgery in the past and also history of hysterectomy in the past. 5. Myocardial infarction is ruled out. 6. Severe hypokalemia, the cause of which is not clear. 7. History of supraventricular tachycardia. 8. Pulmonary embolism ruled out by CAT scan of the chest. 9. Large hiatal hernia. 10. Normal left ventricular systolic function and mild pulmonary hypertension by echocardiogram during 11/2016. RECOMMENDATIONS: 1. Keep potassium level around 4. 2. Follow up repeat EKG (pending at this time). 3. Pain relief. 4. Follow up for urine and blood cultures. Thank you again, we will follow with you. JOB# [id number] SHANNON/WILNER
--- NOTE | 2017-06-16 19:02 | Consultation ---
History of Present Illness - HPI Consult date: 06/16/17 Consult reason: joint pain, fracture History of present illness: 57-year-old female who complains of left-sided hip pain after a fall at home approximately 10 days ago she was seen originally at [facility] and admitted for a couple days patient states she underwent physical therapy and was discharged to home. She presented to our emergency room complaining of persistent left hip pain and inability to ambulate. She is admitted for pain management and physical therapy Medications and Allergies Allergies Allergy/AdvReac Type Severity Reaction Status Date / Time aspirin AdvReac Bleeding Verified 10/14/16 03:11 ibuprofen AdvReac Bleeding Verified 10/14/16 03:11 Home Medications Medication Instructions Recorded Confirmed Last Taken Type Ziprasidone HCl [Geodon] 80 mg PO QHS #30 10/17/16 06/15/17 11/23/15 22:00 Rx Cyclobenzaprine [Flexeril] 10 mg PO BID PRN 06/15/17 06/15/17 Unknown History PARoxetine [Paxil] 20 mg PO DAILY 06/15/17 06/15/17 Unknown History Pantoprazole Sodium 40 mg PO BID 06/15/17 06/15/17 Unknown History oxyCODONE /ACETAMINOPHEN [Percocet 1 tab PO Q6HR PRN 06/15/17 06/15/17 Unknown History 5/325] Active Meds: Active Medications Acetaminophen (Tylenol) 650 mg PO Q4H PRN PRN Reason: Pain MILD(1-3)/Fever >100.5/HWANG Acetaminophen/Hydrocodone Bitart ([place] 5/325) 2 each PO Q6H PRN PRN Reason: Pain, Moderate (4-6) Bisacodyl (Dulcolax) 10 mg MI QDAY PRN PRN Reason: Constipation unrelieved by MOM Enoxaparin Sodium (Lovenox) 30 mg SUB-Q QDAY [facility] Last Admin: 06/16/17 11:20 Dose: 30 mg Famotidine (Pepcid) 20 mg PO BID [facility] Last Admin: 06/16/17 11:19 Dose: 20 mg Sodium Chloride (Nacl 0.9% 1000 Ml) 1,000 mls @ 100 mls/hr IV DIRECT [facility] Last Admin: 06/15/17 22:28 Dose: 100 mls/hr Levofloxacin (Levaquin) 500 mg PO Q24HR [facility] Last Admin: 06/16/17 13:02 Dose: 500 mg Magnesium Hydroxide (Milk Of Magnesia) 30 ml PO Q4H PRN PRN Reason: Constipation Morphine Sulfate (Morphine) 2 mg IV Q3H PRN PRN Reason: Pain, Moderate (4-6) Last Admin: 06/16/17 18:54 Dose: 2 mg Ondansetron HCl (Zofran) 4 mg IV Q8H PRN PRN Reason: N/V unrelieved by Reglan Physical Examination - Physical exam Narrative exam: On physical exam well-nourished well-developed female in no obvious distress lying in bed she was tender about the sacrum there is good passive range of motion at the hips knees and ankle, strength was 4 over 5 in both lower extremities CT scan of the pelvis were reviewed was reviewed by me and show bilateral sacral fractures with minimal displacement Assessment and Plan Assessment = bilateral sacral fractures with minimal displacement Recommendations - we treat conservatively with pain medications and physical therapy for gait training
[2017-06-16] MEDS: NORCO 5/325 PO PRN (21:44)
[2017-06-16 21:49] LABS: Hematocrit 26.4 % (30.3-42.9); Hemoglobin 8.8 gm/dl (10.1-14.3)
[2017-06-17] MEDS: NACL 0.9% 1000 ML 1,000 ML IV SCH ×2 (04:45→21:34)
[2017-06-17] MEDS: ZOFRAN IV PRN ×2 (04:45→21:35)
[2017-06-17] MEDS: MORPHINE IV PRN ×3 (04:46→21:44)
[2017-06-17] MEDS: NORCO 5/325 PO PRN ×2 (08:56→17:59)
[2017-06-17] MEDS: PEPCID PO SCH ×2 (11:06→21:34)
[2017-06-17] MEDS: LEVAQUIN PO SCH (11:06)
[2017-06-17] MEDS: LOVENOX SUB-Q SCH (11:07)
--- NOTE | 2017-06-17 11:52 | Progress Note ---
Assessment and Plan Evaluated by Ortho. Conservative management.Stable cardiac status. Will see her PRN. - Patient Problems (1) Chest pain Current Visit: Yes Status: Resolved Qualifiers: Chest pain type: C Ischemic chest pain type: I (2) Anemia Current Visit: Yes Status: Chronic Qualifiers: Anemia type: unspecified type Iron deficiency anemia type: I Vitamin B12 deficiency anemia type: V Folate deficiency anemia type: F Bone marrow failure anemia type: B Hemolytic anemia type: H Other causes of anemia: O Chronic kidney disease stage: C Qualified Code(s): D64.9 - Anemia, unspecified (3) Hypokalemia Current Visit: Yes Status: Resolved (4) Hypotensive episode Current Visit: Yes Status: Resolved (5) Pelvic fracture Current Visit: Yes Status: Acute Qualifiers: Encounter type: initial encounter Pelvic bone location: multiple parts Sublocation of acetabulum: S Sublocation of pubis: S Fracture type: closed Fracture morphology: F Fracture alignment: with stable disruption of pelvic ring Laterality: L Fracture healing: F Qualified Code(s): S32.810A - Multiple fractures of pelvis with stable disruption of pelvic ring, initial encounter for closed fracture (6) Abnormal transaminases Current Visit: No Status: Acute (7) Cachexia Current Visit: No Status: Chronic (8) Esophagitis Current Visit: No Status: Chronic (9) Psychiatric disorder Current Visit: No Status: Chronic (10) Erosive esophagitis Current Visit: No Status: Chronic (11) Schizo affective schizophrenia Current Visit: No Status: Chronic (12) H/O fall Current Visit: Yes Status: Acute (13) Near syncope Current Visit: Yes Status: Acute Subjective Date of service: 06/17/17 Interval history: Blood cultures: Negative. Urine culture: Contamination.Hb 8.8. C/O L arm swelling because of IV infiltration. Objective Vital Signs Temp Pulse Pulse Resp BP Pulse Ox 06/17/17 11:39 98.0 F 77 18 124/69 95 06/17/17 07:59 97.6 F 88 18 148/70 98 06/17/17 07:55 98.5 F 76 18 146/71 98 06/17/17 04:57 97.8 F 70 20 130/62 96 06/17/17 00:13 97.5 F L 68 20 113/63 96 06/16/17 22:00 100 H 100 H 20 06/16/17 19:47 98.6 F 178 H 20 93/74 93 06/16/17 18:12 98.4 F 81 18 141/78 99 06/16/17 13:29 98.4 F 88 18 152/66 98 - Physical Examination General: Appears Well, No Apparent Distress HEENT: Positive: PERRL, Normocephaly, Mucus Membranes Moist Neck: Positive: neck supple, trachea midline Cardiac: Positive: Reg Rate and Rhythm Lungs: Positive: Normal Exam, clear to auscultation, Normal Breath Sounds Neuro: Positive: Grossly Intact Abdomen: Positive: Soft, Active Bowel Sounds Skin: Positive: Clear. Negative: Rash Musculoskeletal: No Fluid Collection, No Pain, Normal Range of Motion Extremities: Present: upper extr. pulses, lower extr. pulses. Absent: edema - Labs and Meds CBC 06/16/17 06/16/17 Range/Units 15:00 21:33 Hgb 9.2 L 8.8 L (10.1-14.3) gm/dl Hct 27.7 L 26.4 L (30.3-42.9) % - Imaging and Cardiology EKG: report reviewed, image reviewed - Telemetry EKG Rhythm: Sinus Rhythm - EKG Sinus rhythms and dysrhythmias: sinus rhythm
--- NOTE | 2017-06-17 15:01 | Progress Note ---
Assessment and Plan Assessment and plan: Patient is a 57 yo woman with h/o schizoaffective disorder, hypertension and anemia of chronic disease who presented after syncopal first episode fall. Chest x-ray read as chronic interstitial changes, No acute process noted. CT abdomen and pelvisWithout contrast reported as multiple communicated fractures and bony pelvis, including the bilateral sacrum, left anterior and spelled/ superior pubic ramus, left inferior pubic ramus, compression fracture at the superior endplate of L1, new compared to 04/27/2017, bilateral adrenal adenomas , large hiatal hernia, new subcentimeter nodule soft tissue foci within the subcutaneous fat of the right anterior abdominal wall, query subcutaneous injections in this region, correlate clinically. CT head reported as no acute intracranial abnormality... Syncopal episode/autonomic dysfunction suspect vasovagal - could be due to medications or dehydration - PT eval pending - cardiology following Pelvic fracture/Frequent falls - chronic, ordered PT - consulted ortho - as needed pain med Hypokalemia - cont to replace and monitor BMP Hypotensive episode - resolved with iv fluid Schizo affective/schizophrenia - consult psych for med adjustment Anemia, chronic - cont to monitor h and h UTI: cont abx urine culture was contaminated. Disposition: Discussed with case management, questionable placement but awaiting physical therapy evaluation who missed see patient yesterday pending Ortho evaluation. See below. per Ortho: "57-year-old female who complains of left-sided hip pain after a fall at home approximately 10 days ago she was seen originally at [facility] and admitted for a couple days patient states she underwent physical therapy and was discharged to home. She presented to our emergency room complaining of persistent left hip pain and inability to ambulate. She is admitted for pain management and physical therapyAssessment = bilateral sacral fractures with minimal displacement Recommendations - we treat conservatively with pain medications and physical therapy for gait training" History Interval history: Patient seen and examined. Follow up on current diagnosis/pains. Overnight uneventful. No cp, sob, n/v or severe headaches. Imaging, old records, testing, labs, nursing notes reviewed. Hospitalist Physical - Physical exam Narrative exam: GEN: Cachectic BMI 15.9, NAD, AWAKE, ALERT, ORIENTATED x 3 HEENT: NCAT, PERRL, EOMI, OP CLEAR NECK: SUPPLE, NO THYROMEGALY, NO JVD, NO LAD CVS: RRR, NORMAL S1S2 LUNGS/CHEST: CTA B, NORMAL CHEST EXPANSION B, GOOD AIR ENTRY B ABD: SOFT, NTND, GBS, NO REBOUND OR GUARDING EXT/SKIN: NO SIGNIFICANT EDEMA OR RASH MSK: Limited range of motion of the hips bilaterally NEURO: CN 2-12 GROSSLY INTACT, NO NEW FOCAL DEFICITS PSY: Flat - Constitutional Vitals: Temp Pulse Resp BP Pulse Ox 98.0 F 77 18 124/69 95 06/17/17 11:39 06/17/17 11:39 06/17/17 11:39 06/17/17 11:39 06/17/17 11:39 General appearance: Present: no acute distress Results - Labs CBC & Chem 7: 06/16/17 21:33 06/16/17 06:12 Labs: Laboratory Last Values WBC 12.9 K/mm3 (4.5-11.0) H 06/15/17 03:37 RBC 2.89 M/mm3 (3.65-5.03) L 06/15/17 03:37 Hgb 8.8 gm/dl (10.1-14.3) L 06/16/17 21:33 Hct 26.4 % (30.3-42.9) L 06/16/17 21:33 MCV 90 fl (79-97) 06/15/17 03:37 MCH 29 pg (28-32) 06/15/17 03:37 MCHC 32 % (30-34) 06/15/17 03:37 RDW 15.8 % (13.2-15.2) H 06/15/17 03:37 Plt Count 451 K/mm3 (140-440) H 06/15/17 03:37 Lymph % (Auto) 13.3 % (13.4-35.0) L 06/15/17 03:37 [place] % (Auto) 6.2 % (0.0-7.3) 06/15/17 03:37 Eos % (Auto) 2.1 % (0.0-4.3) 06/15/17 03:37 Baso % (Auto) 0.6 % (0.0-1.8) 06/15/17 03:37 Lymph # 1.7 K/mm3 (1.2-5.4) 06/15/17 03:37 [place] # 0.8 K/mm3 (0.0-0.8) 06/15/17 03:37 Eos # 0.3 K/mm3 (0.0-0.4) 06/15/17 03:37 Baso # 0.1 K/mm3 (0.0-0.1) 06/15/17 03:37 Seg Neutrophils % 77.8 % (40.0-70.0) H 06/15/17 03:37 Seg Neutrophils # 10.0 K/mm3 (1.8-7.7) H 06/15/17 03:37 PT 12.3 Sec. (12.2-14.9) 06/15/17 08:43 INR 0.92 (0.87-1.13) 06/15/17 08:43 APTT 26.9 Sec. (24.2-36.6) 06/15/17 08:43 Sodium 136 mmol/L (137-145) L 06/16/17 06:12 Potassium 4.3 mmol/L (3.6-5.0) D 06/16/17 06:12 Chloride 98.2 mmol/L (98-107) 06/16/17 06:12 Carbon Dioxide 26 mmol/L (22-30) 06/16/17 06:12 Anion Gap 16 mmol/L 06/16/17 06:12 BUN 6 mg/dL (7-17) L 06/16/17 06:12 Creatinine 0.4 mg/dL (0.7-1.2) L 06/16/17 06:12 Estimated GFR > 60 ml/min 06/16/17 06:12 BUN/Creatinine Ratio 15.00 % 06/16/17 06:12 Glucose 89 mg/dL (65-100) 06/16/17 06:12 Lactic Acid 1.00 mmol/L (0.7-2.0) 06/15/17 08:43 Calcium 8.6 mg/dL (8.4-10.2) 06/16/17 06:12 Magnesium 2.00 mg/dL (1.7-2.3) 06/15/17 08:43 Total Bilirubin 0.20 mg/dL (0.1-1.2) 06/15/17 08:43 Direct Bilirubin < 0.2 mg/dL (0-0.2) 06/15/17 08:43 AST 11 units/L (5-40) 06/15/17 08:43 ALT 8 units/L (7-56) 06/15/17 08:43 Alkaline Phosphatase 122 units/L (35-129) 06/15/17 08:43 Total Creatine Kinase 54 units/L (30-135) 06/15/17 03:37 CK-MB (CK-2) 2.4 ng/mL (0.0-4.0) 06/15/17 03:37 CK-MB (CK-2) Rel Index 4.4 (0-4) H 06/15/17 03:37 Troponin T < 0.010 ng/mL (0.00-0.029) 06/15/17 08:43 NT-Pro-B Natriuret Pep 310.8 pg/mL (0-900) 06/15/17 08:43 Total Protein 5.4 g/dL (6.3-8.2) L 06/15/17 08:43 Albumin 3.1 g/dL (3.9-5) L 06/15/17 08:43 Albumin/Globulin Ratio 1.3 % 06/15/17 08:43 Lipase 22 units/L (13-60) 06/15/17 08:43 Urine Color Yellow (Yellow) 06/15/17 15:00 Urine Turbidity Slightly-cloudy (Clear) 06/15/17 15:00 Urine pH 5.0 (5.0-7.0) 06/15/17 15:00 Ur Specific [place] 1.025 (1.003-1.030) 06/15/17 15:00 Urine Protein <15 mg/dl mg/dL (Negative) 06/15/17 15:00 Urine Glucose (UA) Neg mg/dL (Negative) 06/15/17 15:00 Urine Ketones Neg mg/dL (Negative) 06/15/17 15:00 Urine Blood Neg (Negative) 06/15/17 15:00 Urine Nitrite Neg (Negative) 06/15/17 15:00 Urine Bilirubin Neg (Negative) 06/15/17 15:00 Urine Urobilinogen < 2.0 mg/dL (<2.0) 06/15/17 15:00 Ur Leukocyte Esterase Lg (Negative) 06/15/17 15:00 Urine WBC (Auto) 8.0 /HPF (0.0-6.0) H 06/15/17 15:00 Urine RBC (Auto) 2.0 /HPF (0.0-6.0) 06/15/17 15:00 U Epithel Cells (Auto) < 1.0 /HPF (0-13.0) 06/15/17 15:00 Urine Mucus Few /HPF 06/15/17 15:00 Blood Type O POSITIVE 06/15/17 08:43 Antibody Screen TNR 06/15/17 08:43 AAMIR Antibody Screen Negative 06/15/17 08:43
[2017-06-18] MEDS: NORCO 5/325 PO PRN (03:36)
[2017-06-18] MEDS: NACL 0.9% 1000 ML 1,000 ML IV SCH (06:55)
[2017-06-18] MEDS: MORPHINE IV PRN ×2 (06:56→11:13)
[2017-06-18] MEDS: LOVENOX SUB-Q SCH (11:13)
[2017-06-18] MEDS: PEPCID PO SCH (11:14)
[2017-06-18] MEDS: LEVAQUIN PO SCH (11:14)
--- NOTE | 2017-06-18 11:30 | Discharge Summary ---
Providers - Providers Date of Admission: 06/15/17 11:31 Date of discharge: 06/18/17 Attending physician: ZEINAB SMITH 06/15/17 14:09 Consult to Physician [CONS] Routine Consulting Provider: ISABELA PIERRE Reason For Exam: pelvic fracture Place consult to:: orthopedics Notified:: y Was contact made?: Yes If yes, spoke with:: DR PIERRE Time called:: 16:20 Comment:: WILL SEE PT ARTHUR 06/16/17 11:01 Physical Therapy Evaluation and Treat [CONS] Routine Comment: Reason For Exam: ambulation 06/16/17 13:17 Consult to Physician [CONS] Routine Consulting Provider: CALVIN HUGGINS Reason For Exam: psych med adjustment Place consult to:: mental health Notified:: mary Was contact made?: Yes Hospitalization Condition: Stable Hospital course: Patient is a 57 yo woman with h/o schizoaffective disorder, hypertension and anemia of chronic disease who presented after syncopal first episode fall. Chest x-ray read as chronic interstitial changes, No acute process noted. CT abdomen and pelvisWithout contrast reported as multiple communicated fractures and bony pelvis, including the bilateral sacrum, left anterior and spelled/ superior pubic ramus, left inferior pubic ramus, compression fracture at the superior endplate of L1, new compared to 04/27/2017, bilateral adrenal adenomas , large hiatal hernia, new subcentimeter nodule soft tissue foci within the subcutaneous fat of the right anterior abdominal wall, query subcutaneous injections in this region, correlate clinically. CT head reported as no acute intracranial abnormality... Syncopal episode/autonomic dysfunction suspect vasovagal - could be due to medications or dehydration - PT eval pending - cardiology following Pelvic fracture/Frequent falls - chronic, ordered PT - consulted ortho - as needed pain med Hypokalemia - cont to replace and monitor BMP Hypotensive episode - resolved with iv fluid and sometimes extends symptoms do much Schizo affective/schizophrenia - consult psych for med adjustment Anemia, chronic - cont to monitor h and h UTI: cont abx urine culture was contaminated. Disposition: HOME with home health/PT per Ortho: "57-year-old female who complains of left-sided hip pain after a fall at home approximately 10 days ago she was seen originally at [facility] and admitted for a couple days patient states she underwent physical therapy and was discharged to home. She presented to our emergency room complaining of persistent left hip pain and inability to ambulate. She is admitted for pain management and physical therapyAssessment = bilateral sacral fractures with minimal displacement Recommendations - we treat conservatively with pain medications and physical therapy for gait training" Disposition: DC-30 STILL A PATIENT Time spent for discharge: 37 minutes Core Measure Documentation - Palliative Care Palliative Care/ Comfort Measures: Not Applicable - Core Measures Any of the following diagnoses?: none - VTE Discharge Requirements Deep Vein Thrombosis/Pulmonary Embolism Present on Admission: No Has pt received <5 days of overlap therapy or INR<2.0: No Anticoagulant overlap therapy prescribed at discharge: No Contraindication No Overlap Therapy order at DC: Not Indicated Exam - Physical Exam Narrative exam: GEN: Cachectic BMI 15.9, NAD, AWAKE, ALERT, ORIENTATED x 3 HEENT: NCAT, PERRL, EOMI, OP CLEAR NECK: SUPPLE, NO THYROMEGALY, NO JVD, NO LAD CVS: RRR, NORMAL S1S2 LUNGS/CHEST: CTA B, NORMAL CHEST EXPANSION B, GOOD AIR ENTRY B ABD: SOFT, NTND, GBS, NO REBOUND OR GUARDING EXT/SKIN: NO SIGNIFICANT EDEMA OR RASH MSK: Limited range of motion of the hips bilaterally NEURO: CN 2-12 GROSSLY INTACT, NO NEW FOCAL DEFICITS PSY: Flat - Constitutional Vitals: Temp Pulse Resp BP Pulse Ox 98.3 F 70 18 142/84 99 06/18/17 08:00 06/18/17 08:00 06/18/17 08:00 06/18/17 08:00 06/18/17 04:00 Plan Activity: up only with assistance, other (no strenous activites until cleared by PCP. ) Weight Bearing Status: Weight Bear as Tolerated Diet: regular Special Instructions: physical therapy Durable Medical Equipment Needed Upon Discharge: Walker-Standard Follow up with: [facility] [Other] - 3-5 Days ISABELA PIERRE MD [Staff Physician] - 7 Days CALVIN HUGGINS MD [Staff Physician] - 10 Days Prescriptions: Levofloxacin [Levaquin TAB] 500 mg PO Q24HR #4 day oxyCODONE /ACETAMINOPHEN [Percocet 5/325 mg] 1 tab PO Q6HR PRN #30 tablet PRN Reason: Pain , Severe (7-10)
[2017-06-18 17:37] VITALS: BP 147/99
--- NOTE | 2017-06-27 09:04 | Query- Nutrition ---
Keena Bustamante____Wise Date:____06/27/17 Basin Tender/CDS: Hui / Felipe Phone#:____[phone] Exercise your independent professional judgment when responding to query. Questions asked do not imply a particular answer is desired or expected. We greatly appreciate your clarification on this issue. Clinical Documentation States: 57 year old female was admitted on 06/15/17. The discharge summary states " Patient is a 57 yo woman with h/o schizoaffective disorder, hypertension and anemia of chronic disease who presented after syncopal first episode fall " The cardiology progress note states " (7) Cachexia Current Visit: No Status: Chronic " Clinical Findings Show: BMI: 15.9 Please select the most appropriate option 3 [] Mild Malnutrition [] Mild - Moderate Malnutrition [] Moderate - Severe Malnutrition [x] Severe Malnutrition Serum Albumin 2.8 to 3.4 g/dl or Pre-albumin 5 to 17 mg/dl1,2 Inadequate nutritional intake1,2,3,4 NPO > 5 days Weight loss: 5% in 1 month or 7.5% in 3 months or 10% in 6 months1, 3,4 BMI 16 to 18.4 or Weight <90% of ideal body weight1,2,3,4 Serum Albumin < 2.8 g/ dl1,2 Lymphocytes < 1500/ L2 Inadequate nutritional intake3, high stress e.g. major trauma, sepsis,pancreatitis, duncan etc. Decubitus ulcers1,2, , skin breakdown2, easy hair pluckability2 Weight <80% standard for height2 Triceps skin fold <3 mm2 Mid-arm muscle circumference <15 cm2 Creatinine-height index <60% standard2 [ ] Cachexia [ ] Emaciated w/Malnutrition [ ] Other: [ ] Unable to determine [ ] Comment/Explanation: Present on Admission: [x ] Yes (Y) [ ] Clinically undeterminable (W) [ ] No (N) Please also document response in your Progress Notes and/or Discharge Summary and indicate if the condition was present on admission. MTDD
== END 2017-06-18 18:45 | disposition home or self-care (01) | DRG 551 ==
LOC: ED 02:06 → 4A 11:31
PROVIDERS: ADMIT Internal Medicine; ATTEND Internal Medicine
DX: S32.019A Unspecified fracture of first lumbar vertebra, initial encounter for closed fracture (principal); E43 Unspecified severe protein-calorie malnutrition; R64 Cachexia; N39.0 Urinary tract infection, site not specified; K22.10 Ulcer of esophagus without bleeding; Z68.1 Body mass index [BMI] 19.9 or less, adult; S32.512A Fracture of superior rim of left pubis, initial encounter for closed fracture; S32.591A Other specified fracture of right pubis, initial encounter for closed fracture; I95.9 Hypotension, unspecified; Z91.81 History of falling; F25.9 Schizoaffective disorder, unspecified; D64.9 Anemia, unspecified; F45.8 Other somatoform disorders; Z83.3 Family history of diabetes mellitus; Z82.49 Family history of ischemic heart disease and other diseases of the circulatory system; Z88.6 Allergy status to analgesic agent; Z88.8 Allergy status to other drugs, medicaments and biological substances; E87.6 Hypokalemia; W19.XXXA Unspecified fall, initial encounter; Y93.89 Activity, other specified; Y92.89 Other specified places as the place of occurrence of the external cause; Y99.8 Other external cause status
CPT/HCPCS: 36415; 70450; 71010; 71275; 74176; 80048; 80074; 81001; 82140; 82550; 82553; 83690; 83735; 83880; 84484; 85014; 85018; 85025; 85610; 85730; 86850; 86900; 86901; 87040; 87086; 93005; 93010; 96361; 96374; C9113; G8978-GP; G8979-GP; J0153; J1650; J2270; J2405; J7030; Q9967